=== PATIENT | female | born 1985 | race Caucasian/White ===

== ENCOUNTER 2022-11-07 15:55 | Outpatient (REF) | payer MEDICAID, SELFPAY ==
[2022-11-08 05:08] LABS: HBS Num1 10.06 mIU/mL (0-7.99); HBc Num1 0.32 S/CO (0.00-0.79); HBsAGNum1 0.41 S/CO (0.00-0.99); Hepatitis B Core Antibody Nonreactive (Nonreactive); Hepatitis B Surface Antigen Negative (Negative)
[2022-11-08 13:52] LABS: HBS Num2 9.98 mIU/mL (0-7.99); HBS Num3 10.56 mIU/mL (0-7.99); ~Hepatitis B Surface Antibody GRAYZONE (Nonreactive)
== END 2022-11-07 15:56 | disposition home or self-care (01) ==
LOC: HO.CHCLDS 15:55
PROVIDERS: Visit Provider Family Medicine
DX: Z78.9 Other specified health status (principal)
CPT/HCPCS: 36415; 86704; 86706; 87340

== ENCOUNTER 2023-05-13 15:28 | Outpatient (REF) | payer MEDICAID, SELFPAY ==
[2023-05-13 17:19] LABS: MANUAL DIFF FLAG NO
[2023-05-13 17:41] LABS: Iron 63 mcg/dL (30-160); Percent Iron Saturation 21 % (15-50); Total Iron Binding Capacity 298 mcg/dL (228-428); Unsaturated Iron Binding 235 ug/dL
[2023-05-13 17:43] LABS: Basophils Percent Auto 0.3 % (0-2); Eosinophils Absolute Auto 0.1 X10*3/uL (0.0-0.4); Hematocrit 34.5 % (37.0-47.0); Hemoglobin 11.2 g/dl (12.0-16.0); Imm Gran Abs Auto 0.11 X10*3/uL (0.00-0.03); Lymphocytes Absolute Auto 2.6 X10*3/uL (1.2-4.9); Lymphocytes Percent Auto 24.2 % (20-40); Mean Corpuscular HGB Conc 32.5 g/dl (31.0-35.0); Mean Corpuscular Hemoglobin 28.7 pg (27.0-33.0); Mean Corpuscular Volume 88.5 fL (80.0-98.0); Mean Platelet Volume 10.2 fL (9.4-12.3); Monocytes Absolute Auto 0.5 X10*3/uL (0.1-1.2); Monocytes Percent Auto 4.4 % (2-11); Neutrophils Absolute Auto 7.5 x10*3/uL (2.0-8.3); Neutrophils Percent Auto 69.1 % (45-73); Platelet Count 308 X10*3/uL (160-400); Red Cell Distribution Width 13.2 % (11.0-16.0); White Blood Count 10.9 X10*3/uL (4.8-10.8)
[2023-05-13 17:59] LABS: Ferritin 68 ng/mL (10-122); Vitamin D 25-OH Total 21.1 ng/mL (>30)
[2023-05-14 06:54] LABS: HCG Tumor Marker 7244 mIU/mL
[2023-05-14 11:17] LABS: CT PCR NOT DETECTED (Not Detect.); NG PCR NOT DETECTED (Not Detect.)
== END 2023-05-13 15:29 | disposition home or self-care (01) ==
LOC: HO.CHCLDS 15:28
PROVIDERS: Referring Provider Advanced Practice Midwife; Visit Provider Family Medicine
DX: Z11.3 Encounter for screening for infections with a predominantly sexual mode of transmission (principal); L65.9 Nonscarring hair loss, unspecified
CPT/HCPCS: 0353U; 36415; 82306; 82728; 83540; 84702; 85025

== ENCOUNTER 2023-05-14 15:27 | Outpatient (REF) | payer MEDICAID, SELFPAY ==
[2023-05-15 08:24] LABS: HCG Tumor Marker 10152 mIU/mL
== END 2023-05-14 15:28 | disposition home or self-care (01) ==
LOC: HO.CHCLDS 15:27
PROVIDERS: Visit Provider Advanced Practice Midwife
DX: Z34.91 Encounter for supervision of normal pregnancy, unspecified, first trimester (principal); Z3A.01 Less than 8 weeks gestation of pregnancy
CPT/HCPCS: 36415; 84702

== ENCOUNTER 2023-09-10 11:37 | Outpatient (REF) | payer MEDICAID, SELFPAY ==
[2023-09-11 08:15] LABS: HBS Num1 > 1000.00 mIU/mL (0-7.99); HBc Num1 0.19 S/CO (0.00-0.79); Hepatitis B Core Antibody Nonreactive (Nonreactive); ~Hepatitis B Surface Antibody REACTIVE (Nonreactive)
[2023-09-13 07:24] LABS: TS Negative Control Passed; TS Panel A 0; TS Panel B 0; TS Positive Control Passed; TSpotTB Negative (Negative)
== END 2023-09-10 11:38 | disposition home or self-care (01) ==
LOC: HO.CHCLDS 11:37
PROVIDERS: Visit Provider Family Medicine
DX: Z00.00 Encounter for general adult medical examination without abnormal findings (principal); Z11.59 Encounter for screening for other viral diseases; Z11.1 Encounter for screening for respiratory tuberculosis
CPT/HCPCS: 36415; 86481; 86704; 86706

== ENCOUNTER 2024-04-15 13:39 | Outpatient (REF) | payer MEDICAID, SELFPAY ==
--- OUTSIDE RECORDS SUMMARY | 2024-04-15 13:41 | XMS_ITS | Continuity of Care Document ---
Author Organization [facility] Address [address] [place] [address]- Support Name Relationship Address Phone CHERY OSMAN mother Unknown Unavailable DAWSON, SANTIAGO Personal Relationship Unknown Unav ailable FINNEY, JOSE Other Unknown Unavailable RODRIGO, IRIS Personal Relationship Unknown Unavai lable DAWSON, SANTIAGO Personal Relationship Unknown Unav ailable DAWSON, SANTIAGO Personal Relationship Unknown Unav ailable PT STATES NO ONE, NO ONE Other Unknown Yvonne vailable NIKOLAI, LEO child Unknown Unavailabl e RODRIGO, IRIS Personal Relationship Unknown Unavai lable NIKOLAI, CYNDI Other Unknown Unavailable NIKOLAI, ANGELO child Unknown Unavailabl e RODRIGO, IRIS Personal Relationship Unknown Unavai lable [place] [facility] [place]): [place] - 03/24/[address] [address] Attending Physician: Komal Real Admitting Physician: [id number] Referring Physician: Admtr, [id number] Encounter Type: Triage Allergies, Adverse Reactions, Alerts No Known Allergies Immunizations Given and Recorded Vaccine Date Status Refusal Reason tetanus/diphtheria/pertussis, acel(Tdap) 11/19/23 Given tetanus/diphtheria/pertussis, acel(Tdap) 05/12/20 Given tetanus/diphtheria/pertussis, acel(Tdap) 02/02/10 Given influenza virus vaccine, inactivated 01/21/23 Sonny rded influenza virus vaccine, inactivated 02/02/10 Give n [id number] 12y+ bivalent booster vax 12/20/22 Recorded SARS-CoV-2 (COVID-19) mRNA BNT-162b2 vac 01/19/21 Recorded SARS-CoV-2 (COVID-19) mRNA BNT-162b2 vac 12/29/20 Recorded Human Papillomavirus Vaccine 08/24/08 Given Human Papillomavirus Vaccine 1 06/21/08 Given hepatitis B adult vaccine 2 12/05/98 Given hepatitis B adult vaccine 3 01/06/96 Given hepatitis B adult vaccine 4 12/06/95 Given Measles/Mumps/Rubella Virus Vaccine 5 01/27/90 Giv en Measles/Mumps/Rubella Virus Vaccine 6 07/01/89 Giv en Measles/Mumps/Rubella Virus Vaccine 7 11/26/88 Giv en 1Admin Note: 2nd gardasil ordered to be scheduled by 2Anuvia Note: chart 3Admin Note: chart 4Admin Note: chart 5Admin Note: chart 6Admin Note: chart 7Admin Note: chart Problem List Condition Confirmation Course Effective Dates Status Health St atus Informant Asthma Confirmed Active BMI 36.0-36.9,adult Confirmed Active Mood disorder of depressed type Confirmed Active Gestational diabetes Confirmed Active History of gestational hypertension Confirmed Active LGSIL on Pap smear of cervix Confirmed Active Migraine Confirmed Active AMA (advanced maternal age) multigravida 35+ Confirmed Active Severe obesity Confirmed Active UTI in Confirmed Active Social History Social History Type Response Smoking Status Never (less than 100 in lifetime) entered on: 12/15/19 Sex Sex Representation Female (finding) Patient Care team information Care Team Related Persons Name: LEO MENCHACA Name: ANGELO MENCHACA Name: CYNDI MENCHACA Name: CHERY OSMAN Name: JOSE FINNEY Insurance Providers Guarantor name: FCAUNDO ROSADOA Health Plan Information #: 1 [facility] Member Number: NA Policy Number: NA Group Number: [id number]
[2024-04-15 14:26] LABS: MANUAL DIFF FLAG NO
[2024-04-15 14:39] LABS: Basophils Absolute Auto 0.1 X10*3/uL (0.0-0.2); Basophils Percent Auto 0.6 % (0-2); Eosinophils Absolute Auto 0.5 X10*3/uL (0.0-0.4); Eosinophils Percent Auto 4.6 % (0-4); Hematocrit 34.3 % (37.0-47.0); Hemoglobin 10.7 g/dl (12.0-16.0); Imm Gran Abs Auto 0.07 X10*3/uL (0.00-0.03); Imm Gran Pct Auto 0.7 % (0.0-0.4); Lymphocytes Absolute Auto 2.5 X10*3/uL (1.2-4.9); Lymphocytes Percent Auto 23.4 % (20-40); Mean Corpuscular HGB Conc 31.2 g/dl (31.0-35.0); Mean Corpuscular Volume 80.1 fL (80.0-98.0); Mean Platelet Volume 9.9 fL (9.4-12.3); Monocytes Absolute Auto 0.3 X10*3/uL (0.1-1.2); Monocytes Percent Auto 3.2 % (2-11); Neutrophils Absolute Auto 7.1 x10*3/uL (2.0-8.3); Neutrophils Percent Auto 67.5 % (45-73); Platelet Count 386 X10*3/uL (160-400); Red Blood Count 4.28 X10*6/uL (4.20-5.50); Red Cell Distribution Width 14.1 % (11.0-16.0); White Blood Count 10.5 X10*3/uL (4.8-10.8)
[2024-04-15 14:46] LABS: Estimated Average Glucose 123 mg/dL; Hemoglobin A1C 111.2586 umol/L; Hemoglobin A1c % 5.9 % (<6.0); Total Hemoglobin (HGBA1C) 2735.9017 umol/L
[2024-04-15 15:10] LABS: Valproate < 12.5 mcg/mL (50.0-100.0)
[2024-04-15 15:14] LABS: Erythrocyte Sedimentation Rate 37 MM/HR (0-20)
[2024-04-15 15:16] LABS: Rheumatoid Factor < 13.0 IU/mL (<15.0)
[2024-04-15 15:21] LABS: Albumin Level 4.1 g/dL (3.5-5.0); Anion Gap 13 (12-20); Aspartate Amino Transferase 27 U/L (5-31); Bilirubin Total 0.3 mg/dL (0.0-1.0); Blood Urea Nitrogen 9 mg/dL (9-16); C Reactive Protein 1.69 mg/dL (< or = 0.50); Calcium 9.3 mg/dL (8.4-10.2); Carbon Dioxide 24 mmol/L (22-29); Chloride 104 mmol/L (96-108); Cholesterol 123 mg/dL (<200); Estimated Glomerular Filt Rate > 60; Glucose Random 132 mg/dL (60-115); HDL Cholesterol 35 mg/dL (>40); LDL Cholesterol Calculated 68 mg/dL (<100); Sodium 137 mmol/L (135-145); Total Protein 7.4 g/dL (6.5-8.0); Triglycerides 102 mg/dL (<150)
[2024-04-15 15:35] LABS: Alanine Aminotransferase 22 U/L (0-31); Alkaline Phosphatase 73 U/L (39-117)
[2024-04-16 18:09] LABS: Lyme Abs Screen <0.90 index
[2024-04-19 14:43] LABS: Anti Nuclear Antibody Screen NEGATIVE (NEGATIVE)
[2024-04-20 15:12] LABS: Cyclic Citrullinated Peptide <16 UNITS
== END 2024-04-15 13:40 | disposition home or self-care (01) ==
LOC: HO.CHCLDS 13:39
PROVIDERS: Visit Provider Family Medicine
DX: R10.2 Pelvic and perineal pain (principal); G89.29 Other chronic pain; M25.50 Pain in unspecified joint; F39 Unspecified mood [affective] disorder; I10 Essential (primary) hypertension
CPT/HCPCS: 36415; 80053; 80061; 80164; 83036; 85025; 85652; 86038; 86140; 86200; 86431; 86617; 86618

== ENCOUNTER 2024-07-30 11:30 | Outpatient (REF) | payer MEDICAID, SELFPAY ==
--- OUTSIDE RECORDS SUMMARY | 2024-07-30 13:29 | XMS_ITS | Encounter Summary ---
Author Organization [employer] Address [address] [place] [address] Care Team Providers Care Production Editor Name Role Phone Soledad Ocasio MD Primary Care Provider [phone] Nicole Ramsey PharmD Unavailable [phone] Encounter Details Date Type Department Care Team (Latest Contact Info) Description 07/29/2024 Travel Social History Tobacco Use Types Packs/Day Years Used Date Smoking Tobacco: Never Smokeless Tobacco: Never Alcohol Answer Date Recorded How often do you have a drink containing alcohol ? 1 06/17/2024 How many drinks containing a lcohol do you have on a typical day when you are drinking? 0 06/17/2024 How often do you have six or more drinks on one occasion? 0 06/17/2024 Depression Answer Date Recorded Patient Health Questionnaire-9 Score 0 06/17/2024 Patient Health Questionnaire-9 Score 0 06/17/2024 Last PHQ-9: Questionnaire Data Not on file 0 06/17/2024 Housing Stability Answer Date Recorded What is your housing situation today? I have linette ramsey 04/23/[address] you li ve. Do you have problems with any of the following? None of the above 04/23/2024 Food Insecurity Answer Date Recorded Within the past 12 months, y ou worried that your food would run out before you got money to buy more: Never True 04/23/2024 Within the past 12 months,th e food you bought just didn't last and you didn't have enough money to get more: Never True Transportation Answer Date Recorded In the past 12 months, has l ack of transportation kept you from medical appts, meetings, work or from getting things needed for daily living? No 02/10/2023 Utilities Answer Date Recorded In the past 12 months, has t he electric, gas, oil or water company threatened to shut off services in your home? No 06/17/2024 Depression Answer Date Recorded Patient Health Questionnaire-2 Score 0 06/17/2024 Internet Access Answer Date Recorded Internet Access Q1 Yes 06/17/2024 Internet Access Q2 Not on file 06/17/2024 Comments Unknown Sex and Gender Information Value Date Recorded Sex Assigned at Female 02/25/2022 10:24 AM EDT Legal Sex Female 10:24 AM EDT Gender Identity Female 02/25/2022 10:24 AM EDT Sexual Orientation Straight 02/25/2022 10 :24 AM EDT documented as of this encounter Plan of Treatment Upcoming Encounters Date Type Department Care Team (Late st Contact Info) Description 08/04/2024 10:30 AM EDT Medication Management [facility] MED & PEDS [address] [place] [address] Nicole Ramsey PharmD [address] [place] [address] documented as of this encounter Visit Diagnoses Not on filedocumented in this encounter Additional Health Concerns Assessment Noted Time PHQ-9 Depression Total Score: 0 06/17/19 25 1:39 PM EST documented as of this encounter Care Teams Production Editor Relationship Specialty Start Date End Date Soledad Ocasio MD [address] [place] [address] PCP - General Family Medicine 08/07/22 Nicole Ramsey, JustinaD [address] [place] [address] Pharmacist Internal Medicine 07/07/24 Chapis Bonner First D[employer] 07/23/23 documented as of this encounter
--- OUTSIDE RECORDS SUMMARY | 2024-07-30 13:29 | XMS_ITS | Encounter Summary ---
Author Organization [employer] Address [address] [place] [address] Care Team Providers Care Disease Intervention Specialist Name Role Phone Soledad Ocasio MD Primary Care Provider [phone] Nicole Ramsey PharmD Unavailable [phone] Encounter Details Date Type Department Care Team (Latest Contact Info) Description 07/28/2024 Travel Social History Tobacco Use Types Packs/Day [...] Description 08/04/2024 10:30 AM EDT Medication Management [facility] MED & PEDS [address] [place] [address] Nicole Ramsey PharmD [address] [place] [address] documented as of this encounter Visit Diagnoses Not on filedocumented in this encounter Additional Health Concerns Assessment Noted Time PHQ-9 Depression Total Score: 0 06/17/19 25 1:39 PM EST documented as of this encounter Care Teams Disease Intervention Specialist Relationship Specialty Start Date End Date Soledad Ocasio MD [address] [place] [address] PCP - General Family Medicine 08/07/22 Nicole Ramsey, JustinaD [address] [place] [address] Pharmacist Internal Medicine 07/07/24 Chapis Bonner [employer] Media Program Director 07/23/23 documented as of this encounter
--- OUTSIDE RECORDS SUMMARY | 2024-07-30 13:29 | XMS_ITS | Encounter Summary ---
Author Organization [employer] [facility] Address [address] [facility] 7 [place] [address] Care Team Providers Care Epic Willow Specialist Name Role Phone Soledad Ocasio MD Primary Care Provider [phone] Nicole Ramsey PharmD Unavailable [phone] Encounter Details Date Type Department Care Team (Late st Contact Info) Description 04/11/2022 Orders Only [facility] MED & PEDS [address] [place] [address] Katie Aguilar LPN Social History Tobacco Use Types Packs/Day Years Used Date Smoking Tobacco: Never Assessed Comments Unknown Sex and Gender Information Value [...] Description 08/04/2024 10:30 AM EDT Medication Management [facility]ED[facility] [address] [place] [address] Nicole Ramsey, PharmD [address] [place] [address] documented as of this encounter Visit Diagnoses Not on filedocumented in this encounter Care Teams Epic Willow Specialist Relationship Specialty Start Date End Date Soledad Ocasio MD [address] [place] [address] PCP - General Family Medicine 08/07/22 Nicole Ramsey, PharmD [address] [place] [address] Pharmacist Internal Medicine 07/07/24 Chapis Bonner Egg Candler 07/23/23 documented as of this encounter
--- OUTSIDE RECORDS SUMMARY | 2024-07-30 13:29 | XMS_ITS | Encounter Summary ---
Author Organization [employer] Address [address] [place] [address] Care Team Providers Care Hog Scalder Name Role Phone Soledad Ocasio MD Primary Care Provider [phone] Nicole Ramsey PharmD Unavailable [phone] Encounter Details Date Type Department Care Team ([facility] st Contact Info) Description 09/15/2023 Telephone [facility] MED & PEDS [address] [place], [place] [phone] Soledad Ocasio MD [address] [place], [place] [phone] Social History Tobacco Use Types Packs/Day Years Used Date Smoking Tobacco: Never Smokeless Tobacco: Never Depression Answer Date Recorded Patient Health Questionnaire-9 Score 17 09/02/2022 Housing Stability Answer Date Recorded What is your housing situation today? I have housing today, but I am worried about losing housing in the future 06/26/[address] you li ve. Do you have problems with any of the following? None of the above 06/26/2023 Food Insecurity Answer Date Recorded Within the past 12 months, y ou worried that your food would run out before you got money to buy more: Sometimes True 2023 Within the past 12 months,th e food you bought just didn't last and you didn't have enough money to get more: Sometimes True 06/26/2023 Transportation Answer Date Recorded In the past 12 months, has l ack of transportation kept you from medical appts, meetings, work or from getting things needed for daily living? No 02/10/2023 Utilities Answer Date Recorded In the past 12 months, has t he electric, gas, oil or water company threatened to shut off services in your home? Yes 06/26/2023 Depression Answer Date Recorded Patient Health Questionnaire-2 Score 3 09/02/2022 Comments Yes Sex and Gender Information Value Date Recorded Sex Assigned at Female 02/25/2022 10:24 AM EDT Legal Sex Female 10:24 AM EDT Gender Identity Female 02/25/2022 10:24 AM EDT Sexual Orientation Straight 02/25/2022 10 :24 AM EDT documented as of this encounter Miscellaneous Notes * Telephone Encounter - Wing Ryan RN - 09/15/2023 4:02 PM EDT Tc to pt who stated [facility] is telling her to get Hep B titers. However, pt already had Hep B titers done on 09/09 which showed she was immune to Hep B. Pt brought these results to [facility] but they still insisted on pt getting Hep B titers. Provided pt with our office number for [facility] to call us. Pt verbalized understanding and agreement with plan. * Telephone Encounter - Ruth Smith - 09/15/2023 2:40 PM EDT Tc from pt requesting a call back to discuss immunizations. documented in this encounter Plan of Treatment Upcoming Encounters Date Type Department Care Team (Late st Contact Info) Description 08/04/2024 10:30 AM EDT Medication Management [facility] MED & PEDS [address] [place] [address] Nicole Ramsey PharmD [address] [place] [address] documented as of this encounter Visit Diagnoses Not on filedocumented in this encounter Additional Health Concerns Assessment Noted Time PHQ-9 Depression Total Score: 17 023 11:47 AM EDT documented as of this encounter Care Teams Hog Scalder Relationship Specialty Start Date End Date Soledad Ocasio MD [address] [place] [address] PCP - General Family Medicine 08/07/22 Nicole Ramsey PharmD [address] [place] [address] Pharmacist Internal Medicine 07/07/24 Chapis Bonner Director Service 07/23/23 documented as of this encounter
--- OUTSIDE RECORDS SUMMARY | 2024-07-30 13:29 | XMS_ITS | Encounter Summary ---
Author Organization [employer] [facility] Address [address] [facility] 7 [place] [address] Care Team Providers Care Dryerman/Woman Name Role Phone Soledad Ocasio MD Primary Care Provider [phone] Nicole Ramsey PharmD Unavailable [phone] Encounter Details Date Type Department Care Team (Late Contact Info) Description 05/26/2022 Orders Only [facility] [address] [place] [address] Billy Muñiz MD [address] [place], [place] [phone] Major depressive disorder, remission status unspecified, unspecified whether recurrent (Primary Dx) Social History Tobacco Use Types Packs/Day Years [...] Encounters Date Type Department Care Team (Late Contact Info) Description 08/04/2024 10:30 AM EDT Medication Management [facility] [address] [place], [place] [phone] Nicole Ramsey, PharmD [address] [place] [address] documented as of this encounter Visit Diagnoses Diagnosis Major depressive disorder, remission status unspecified, unspecified whether recurrent- Primary documented in this encounter Care Teams Dryerman/Woman Relationship Specialty Start Date End Date Soledad Ocasio MD [address] [place] [address] PCP - General Family Medicine 08/07/22 Nicole Ramsey PharmD [address] [place] [address] Pharmacist Internal Medicine 07/07/24 Chapis Bonner Newsstand Vendor 07/23/23 documented as of this encounter
--- OUTSIDE RECORDS SUMMARY | 2024-07-30 13:29 | XMS_ITS | Encounter Summary ---
Author Organization [employer] Address [address] 7[address] [place] [address] Care Team Providers Care State Highway Police Officer Name Role Phone Soledad Ocasio MD Primary Care Provider [phone] Nicole Ramsey PharmD Unavailable [phone] Encounter Details Date Type Department Care Team (Late st Contact Info) Description 07/07/2024 Orders Only [facility] MEDICINE [address] [place], [place] [phone] Sona Mccarthy MD [address] [place], [place] [phone] Social History Tobacco Use Types Packs/Day Years [...] Description 08/04/2024 10:30 AM EDT Medication Management [facility] MED & PEDS [address] [place] [address] Nicole Ramsey PharmD [address] [place] [address] documented as of this encounter Visit Diagnoses Not on filedocumented in this encounter Additional Health Concerns Assessment Noted Time PHQ-9 Depression Total Score: 0 06/17/19 25 1:39 PM EST documented as of this encounter Care Teams State Highway Police Officer Relationship Specialty Start Date End Date Soledad Ocasio MD [address] [place] [address] PCP - General Family Medicine 08/07/22 Nicole Ramsey PharmD [address] [place] [address] Pharmacist Internal Medicine 07/07/24 Chapis Bonner Biophysics Professor 07/23/23 documented as of this encounter
--- OUTSIDE RECORDS SUMMARY | 2024-07-30 13:29 | XMS_ITS | Clinical Summary ---
Author Organization [facility] Address [address] [place] [address] Care Team Providers Care Hat Lining Paster Name Role Phone Barbara Cabrera MD Primary Care Provider [phone] Social History Tobacco Use Types Packs/Day Years Used Date Smoking Tobacco: Never Assessed Comments Unknown Sex and Gender Information Value Date Recorded Sex Assigned at Not on file Legal Sex Female 2:35 PM EST Gender Identity Not on file Sexual Orientation Not on file Plan of Treatment Health Maintenance Due Date Last Done Comments DTaP,Tdap,and Td Vaccines (1 - Tdap) 07/02/2006 Hepatitis B Vaccines (1 of 3 - 19+ 3-dose series) 07/02/2006 Cervical Cancer Screening: P ap Smear 07/02/2008 Depression Screening 03/27/2022 HIV Screening 03/27/2022 Hepatitis C Screening 03/27/2022 Social Influencers of Health Screening 03/27/2022 COVID-19 Vaccine ( - 2023-2 5 season) 2023 Influenza Vaccine (Season Ended) 2024 HIB Vaccines Aged Out No longer eligi ble based on patient's age to complete this topic HPV Vaccines Aged Out No longer eligi ble based on patient's age to complete this topic Hepatitis A Vaccines Aged Out No long er eligible based on patient's age to complete this topic IPV Vaccines Aged Out No longer eligi ble based on patient's age to complete this topic MMR Vaccines Aged Out No longer eligi ble based on patient's age to complete this topic Meningococcal ACWY Vaccine Aged Out N o longer eligible based on patient's age to complete this topic Meningococcal B Vacine Aged Out No lo nger eligible based on patient's age to complete this topic Pneumococcal Vaccine: Pediat rics (0 to 5 Years) and At-Risk Patients (6 to 64 Years) Aged Out No longer eligible b ased on patient's age to complete this topic RSV Immunization Patients Un anshul 20 months Aged Out No longer eligible b ased on patient's age to complete this topic Varicella Vaccines Aged Out No longer eligible based on patient's age to complete this topic Care Teams Hat Lining Paster Relationship Specialty Start Date End Date Barbara Cabrera MD [address] [place] [address] PCP - General Internal Medicine 02/08/19
--- OUTSIDE RECORDS SUMMARY | 2024-07-30 13:29 | XMS_ITS | Encounter Summary ---
Author Organization [employer] Address [address] 7[address] [place] [address] Care Team Providers Care Room Service Attendant Name Role Phone Soledad Ocasio MD Primary Care Provider [phone] Nicole Ramsey PharmD Unavailable [phone] Reason for Visit * Reason Onset Date Comments Care Management 07/28/2024 [facility] TC #[id number] Encounter Details Date Type Department Care Team ([facility] st Contact Info) Description 07/28/2024 Telephone [facility] MEDICINE [address] [place] [address] Soledad Ocasio MD [address] [place] [address] Care Management ([facility] TC #1-lvm) Social History Tobacco Use Types Packs/Day Years [...] encounter Miscellaneous Notes * Telephone Encounter - Chapis Bonner - 07/28/2024 11:02 AM EDT CM Chapis Bonner RN placed outbound call to patient for follow up call. No answer at this time.LVM introducing herself from [facility] CM Department. Requested call back. CM reinforced direct contact information or CHW for any additional questions or concerns. Education provided on [facility] Ur[facility] located in [facility]. Patient provided with after-hours line for [facility], , which offer night time triage service and option to transfer toon call provider if needed. CM will attempt another follow up call within 1 month. documented in this encounter Plan of Treatment Upcoming Encounters Date Type Department Care Team ([facility] st Contact Info) Description 08/04/2024 10:30 AM EDT Medication Management [facility] MED & PEDS [address] [place] [address] Nicole Ramsey, PharmD [address] [place] [address] documented as of this encounter Visit Diagnoses Not on filedocumented in this encounter Additional Health Concerns Assessment Noted Time PHQ-9 Depression Total Score: 0 06/17/19 25 1:39 PM EST documented as of this encounter Care Teams Room Service Attendant Relationship Specialty Start Date End Date Soledad Ocasio MD [address] [place] [address] PCP - General Family Medicine 08/07/22 Nicole Ramsey, JustinaD [address] [place] [address] Pharmacist Internal Medicine 07/07/24 Chapis Bonner Lead Systems Engineer 07/23/23 documented as of this encounter
--- OUTSIDE RECORDS SUMMARY | 2024-07-30 13:29 | XMS_ITS | Encounter Summary ---
Author Organization [employer] Address [address] [place] [address] Care Team Providers Care Dispensing Optician Apprentice Name Role Phone Soledad Ocasio MD Primary Care Provider [phone] Nicole Ramsey PharmD Unavailable [phone] Reason for Visit * Reason Comments Care Management [facility] follow up call Encounter Details Date Type Department Care Team ([facility] st Contact Info) Description 05/14/2024 Telephone [facility] MEDICINE [address] [place] [address] Chapis Bonner Care Management ([facility] follow up call) Social History Tobacco Use Types Packs/Day Years Used Date Smoking Tobacco: Never Smokeless Tobacco: Never Depression Answer Date Recorded Patient Health Questionnaire-9 Score 15 04/30/2024 Patient Health Questionnaire-9 Score 15 04/30/2024 Last PHQ-9: Questionnaire Data Not on file 0 04/30/2024 Housing Stability Answer Date Recorded What is [...] Answer Date Recorded Patient Health Questionnaire-2 Score 4 04/30/2024 Internet Access Answer Date Recorded Internet Access Q1 I am not sure 04/23/2024 Internet Access Q2 Not on file 04/23/2024 Comments Unknown Sex and Gender Information Value [...] Management [facility] MED & PEDS [address] [place] [address] Nicole Ramsey, PharmD [address] [place] [address] documented as of this encounter Visit Diagnoses Not on filedocumented in this encounter Additional Health Concerns Assessment Noted Time PHQ-9 Depression Total Score: 15 025 9:18 AM EST documented as of this encounter Care Teams Dispensing Optician Apprentice Relationship Specialty Start Date End Date Soledad Ocasio MD [address] [place] [address] PCP - General Family Medicine 08/07/22 Nicole Ramsey, JustinaD [address] [place] [address] Pharmacist Internal Medicine 07/07/24 Chapis Bonner Set Off Blocker 07/23/23 documented as of this encounter
--- OUTSIDE RECORDS SUMMARY | 2024-07-30 13:29 | XMS_ITS | Clinical Summary ---
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 Ventolin HFA 108 (90 Base) MCG/ACT inhaler INHALE 2 PUFFS BY MOUTH FOUR TIMES DAILY 023 Active fluticasone (Flonase) 50 MCG/ACT nasal spray SHAKE LIQUID AND USE 1 SPRAY IN EACH NOSTRIL EVERY DAY NEEDED FOR ALLERGIES 023 Active Blood Pressure kitIndications: Elevated blood pressure reading 1 Units in the morning. 1 kit 023 Active famotidine (Pepcid) 20 MG tablet Take 20 mg by mouth. 024 Active butalbital-acet aminophen-caffe ine 50-325-40 MG tabletIndicatio ns:Intractable chronic migraine with aura and without status migrainosus Take 2 tablets by mouth every 8 (eight) hours if needed for headaches. 20 tablet 024 Active Levonorgestrel (Liletta, 52 MG,) 20.1 MCG/DAY intrauterine device by Intrauterine route. Active ferrous gluconate (Fergon) 324 (38 Fe) MG tablet Take 1 tablet (324 mg) by mouth every other day. 90 tablet 1 024 Active losartan (Cozaar) 100 MG tabletIndicatio ns:Hypertension , unspecified type Take 1 tablet (100 mg) by mouth Once per day. 30 tablet 3 024 Active lidocaine (Lidoderm) 5 % patchIndication s:Low back pain at multiple sites Apply 1 patch topically Once per day. Remove & discard patch within 12 hours or as directed by . 30 patch 3 Active methocarbamol (Robaxin) 750 MG tabletIndicatio ns:Low back pain at multiple sites Take 1 tablet (750 mg) by mouth 4 times daily for 10 days. 40 tablet Active chlorthalidone (Hygroton) 25 MG tablet Take 1 tablet (25 mg) by mouth Once per day. 90 tablet 1 Active DULoxetine (Cymbalta) [address] capsuleIndicati ons:Low back pain at multiple sites Take 1 capsule (20 mg) by mouth 2 times daily. Do not crush or chew. 60 capsule 11 025 2025 Active atenolol (Tenormin) 50 MG tabletIndicatio ns:Primary hypertension Take 1 tablet (50 mg) by mouth Once per day. 30 tablet 11 025 2025 Active rizatriptan (Maxalt) 10 MG tabletIndicatio ns:Intractable chronic migraine with aura and without status migrainosus Take 1 tablet (10 mg) by mouth 1 (one) time if needed for migraine. May repeat in 2 hours if unresolved. Do not exceed 30 mg in 24 hours. 9 tablet Active Alcohol Swabs (Alcohol Prep) 70 % pads USE TO CLEAN SKIN BEFORE INJECT INSULIN 4 TIMES A DAY. Active FREESTYLE LITE test strip USE DIRECTED FOUR TIMES DAILY Active B-D UF III MINI PEN NEEDLES 31G X 5 MM misc USE TO INJECT INSULIN 4 TIMES A DAY DIRECTED. Active FreeStyle lancets USE DIRECTED FOUR TIMES DAILY Active amLODIPine (Norvasc) 10 MG tabletIndicatio ns:Primary hypertension Take 1 tablet (10 mg) by mouth Once per day. 90 tablet 3 Active Tirzepatide-Awais ght Management (Zepbound) 5 MG/0.5ML solution Inject 5 mg under the skin 1 (one) time per week. 2 mL 3 Active traZODone (Desyrel) 150 MG tabletIndicatio ns:Depression with anxiety Take 1 tablet (150 mg) by mouth if needed at bedtime for sleep. 30 tablet 025 2024 Active divalproex (Depakote) 500 MG EC tabletIndicatio ns:Mood disorder (CMS/HCC) Take 1 tablet (500 mg) by mouth 2 times daily. Do not crush, chew, or split. 60 tablet 1 025 2024 Active ARIPiprazole (Abilify) 10 MG tabletIndicatio ns:Mood disorder (CMS/HCC) Take 1.5 tablets (15 mg) by mouth Once per day. 45 tablet 025 2024 Active propranolol LA (Inderal LA) 80 MG 24 hr capsuleIndicati ons:Intractable chronic migraine with aura and without status migrainosus Take 1 capsule (80 mg) by mouth at bedtime. Do not crush, chew, or split. 90 capsule 1 024 2024 Discontinued(A lternate therapy) amLODIPine (Norvasc) 5 MG tabletIndicatio ns:Primary hypertension Take 1 tablet (5 mg) by mouth Once per day. 30 tablet 11 025 2024 Discontinued(R eorder (will not trigger notification to Pharmacy)) traZODone (Desyrel) 100 MG tabletIndicatio ns:Depression with anxiety Take 1 tablet (100 mg) by mouth if needed at bedtime for sleep. 30 tablet 1 025 2024 Discontinued(R eorder (will not trigger notification to Pharmacy)) divalproex (Depakote) 500 MG EC tabletIndicatio ns:Mood disorder (CMS/HCC) Take 1 tablet (500 mg) by mouth 2 times daily. Do not crush, chew, or split. 60 tablet 1 025 2024 Discontinued(R eorder (will not trigger notification to Pharmacy)) Tirzepatide-Awais ght Management (Zepbound) 2.5 MG/0.5ML solution auto-injectorIn dications:Class 3 severe obesity due to excess calories without serious comorbidity with body mass index (BMI) of 40.0 to 44.9 in adult (CMS/HCC) Inject 0.5 mL (2.5 mg) under the skin 1 (one) time per week. 2 mL 1 025 2024 Discontinued(T herapy completed) escitalopram (Lexapro) 10 MG tabletIndicatio ns:Depression with anxiety Take 0.5 tablets (5 mg) by mouth in the morning. 15 tablet 025 2024 Discontinued(I neffective) ARIPiprazole (Abilify) 10 MG tabletIndicatio ns:Mood disorder ([facility]) Take 1 tablet (10 mg) by mouth Once per day. 30 tablet 025 2024 Discontinued(R eorder (will not trigger notification to Pharmacy)) Lantus SoloStar 100 UNIT/ML pen ADMINISTER 28 UNITS UNDER THE SKIN DAILY AT BEDTIME 025 2024 Discontinued(T herapy completed) insulin lispro (HumaLOG) 100 UNIT/ML injection ADMINISTER 8 UNITS UNDER THE SKIN THREE TIMES DAILY BEFORE MEALS 025 2024 Discontinued(T herapy completed) Tirzepatide-Awais ght Management (Zepbound) 5 MG/0.5ML solution Inject 5 mg under the skin 1 (one) time per week. 2 mL 1 025 2024 Discontinued(R eorder (will not trigger notification to Pharmacy)) Active Problems Patient Care Coordination No te Formatting of this note migh t be different from the original. C3/CM Debbie Mauricio RN Problem Noted Date Diagnosed Date Primary hypertension 04/30/2024 Assessment & Plan (04/30/2024 10:32 AM EST): Ordering lab work for further evaluation. DC hydrochlorothiazide and begin chlorthalidone. Follow up in 4 months. Relevant Medications Chlorthalidone (Hygroton) 25 mg tablet Restless leg syndrome 04/30/2024 Assessment & Plan (04/30/2024 10:30 AM EST): Ordering lab work for further evaluation. Polyarthralgia 04/15/2024 Assessment & Plan (04/15/2024 11:03 AM EST): Ordering lab work for further evaluation. Chronic pelvic pain in female 04/15/2024 Assessment & Plan (04/15/2024 11:03 AM EST): Ordering lab work for further evaluation. Physical exam, annual 09/16/2023 Assessment & Plan (09/16/2023 11:55 AM EDT): 38 y.o. 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 Reviewed what testing is required and will f./up with results. AMA (advanced maternal age) multigravida 35+ History of gestational diabetes 09/10/2023 History of gestational hypertension 0 09/10/2023 Medication exposure during first trimester of pr egnancy 09/10/2023 UTI in 09/10/2023 Alopecia 03/05/2023 Assessment & Plan (03/05/2023 4:29 PM EST): Areas of keratinization and thinning, she is very concern, will check labs and schedule apt with [facility] D[facility]. Watery diarrhea 01/28/2023 Assessment & Plan (01/28/2023 4:56 PM EDT): Unknown etiology. Will send testing. Will send symptomatic management. rtc if worsening symptoms, benign abdominal exam. Chronic pain of left knee 11/19/2022 Assessment & Plan (11/19/2022 4:12 PM EDT): Patient with chronic Left knee pain, will refer to orthopedic surgery for further evaluation. Posttraumatic stress disorder 10/28/2022 Assessment & Plan (11/12/2022 3:38 PM EDT): Assessment: Patient with a history of Trauma (exposure to traumatic life threatening event, recurrent involuntary, and intrusive distressing memories, nightmares, flashbacks, avoidance of external reminders that arouse distressing memories, thoughts, or feelings about the traumatic event, persistent negative emotional state, feelings of detachment, irritable behavior, and problems with concentration), ADHD (documented in medical record) depression (depressed mood, isolation) and anxiety (over thinking, worry, and nervousness). Symptoms are in the context of biopsychosocial stressors of chronic pain and lack of coping mechanisms. At this time Qing Ackerman meets criteria for Visit Diagnoses: Problem List Items Addressed This Visit Other Posttraumatic stress disorder Patient ready to address current needs Yes Strengths- Iris is the action stage of change PLAN: 1. Follow up with [facility]: Recommended for follow-up: patient will contact to schedule follow up 2. Patient goal is increase coping mechanisms 3. Behavioral Recommendations a. Deep breathing b. Task prioritizing c. Contacting the accomodation department at the [facility] Assessment & Plan (10/28/2022 1:27 PM EDT): Assessment: Patient with a history of Trauma (exposure to traumatic life threatening event, recurrent involuntary, and intrusive distressing memories, nightmares, flashbacks, avoidance of external reminders that arouse distressing memories, thoughts, or feelings about the traumatic event, persistent negative emotional state, feelings of detachment, irritable behavior, and problems with concentration), ADHD (documented in medical record) depression (depressed mood, isolation) and anxiety (over thinking, worry, and nervousness). (Symptoms are in the context of biopsychosocial stressors of chronic pain and lack of coping mechanisms. Patient will benefit from psychological testing and follow up BE's. At this time Qing Ackerman meets criteria for Visit Diagnoses: Problem List Items Addressed This Visit Other Depression with anxiety Relevant Orders Referral to Behavioral Health Attention deficit hyperactivity disorder (ADHD), combined type PTSD (post-traumatic stress disorder) Patient ready to address current needs Yes Strengths include ready and motivated for treatment. PLAN: 1. Follow up with [facility]: Recommended for follow-up: 10/24/22 2. Patient goal is to engage in follow up BE's to explore coping mechanisms. 3. Behavioral Recommendations a. Explore coping mechanisms b. PTSD psychoeducation Chronic midline low back pain without sciatica 0 10/07/2022 Assessment & Plan (01/28/2023 4:58 PM EDT): Patient continues with symptoms, sp PT and MRI, will send to pain management. Referral placed, MRI sent to scan Assessment & Plan (10/07/2022 4:54 PM EDT): Patient with chronic midline low back pain with no relief s/p physical therapy. Will benefit from further evaluation form an MRI. LGSIL on Pap smear of cervix 09/02/2022 Asthma 09/02/2022 Depression with anxiety 09/02/2022 Assessment & Plan (09/02/2022 11:37 AM EDT): Patient with depression symptoms associated with anxiety. Will refer to Behavioral services for further evaluation. Gestational diabetes 09/02/2022 Class 2 obesity with body ma ss index (BMI) of 36.0 to 36.9 in adult 09/02/2022 Assessment & Plan (04/30/2024 10:33 AM EST): Begin Zepbound and follow up in 4 months. Assessment & Plan (01/28/2023 4:57 PM EDT): Discussed calorie deficit, recommended reduction of 20-30% of maintenance calories; trailer technician referral offered. Recommended to decrease soda and sugary beverage consumption. Recommended at least 20 g per meal of protein to assist with satiety. Recommended at least 150 min/week of moderate intensity exercise. Phentermine/topamax: 37.5/100 mg. Discussed side effects-> tachycardia, HTN, teratogenic, cognitive dysfuction, metabolic acidosis, constipation, dysgeusia. Denies hx of , hyperthyroidism, MAOI use or glaucoma. Denies hx of kidney stones. Cont current regimen -Patient has lost 20 lbs in 3 months. -Will have medication refill. Assessment & Plan (11/19/2022 4:12 PM EDT): Patient with poor response to phentermine and Topamax. Already on max dose. She has contraindications for Wellbutrin. Patient unable to afford GOP 1 agonist. Declined referral to bariatric surgery. Will continue with current medications for next 2 months and follow up in 8 weeks. Assessment & Plan (10/07/2022 4:51 PM EDT): Patient with no weight loss despite implementation of diet modifications. At this point will increase phentermine to 37.5 and Topamax to 100 mg. Assessment & Plan (09/02/2022 11:36 AM EDT): Will send labs to check levels. Attention deficit hyperactiv ity disorder (ADHD), combined type 09/02/2022 Abnormal cervical Papanicolaou smear 05/15/2018 Migraine 05/15/2018 Assessment & Plan (04/15/2024 11:06 AM EST): Prescribing Inderal and Butalbital-Acetaminophen for Sx. Follow up on 04/29/2023 for medications. Assessment & Plan (09/16/2023 11:53 AM EDT): Patient has a hx of migraine headache, reports OB recommended referral to neurology as she is currently and they can't offer medication. Did provide reglan trial. Mild intermittent asthma 05/15/2018 Mood disorder 05/15/2018 Assessment & Plan (04/30/2024 9:46 AM EST): Started to be seen by financial services associate in office, he continues her mood stabilizer & SGA and added trazodone to regimen, next appt in 2 weeks. Followup per psych recs. Future Appointments Date Time Provider Department Center 04/30/2024 10:45 AM Soledad Ocasio MD [facility] 05/13/2024 4:00 PM Osito Guidry [facility] 05/20/2024 9:00 AM Fahad Agrawal MD [facility] Assessment & Plan (04/15/2024 11:07 AM EST): Prescribing Depakote and Abilify for Sx. Will follow up on next visit. Ordering lab work for further evaluation. Resolved Problems Problem Noted Date Diagnosed Date Resolved Date Elevated blood pressure reading 10/07/2022 04/30/2024 Assessment & Plan (10/07/2022 4:52 PM EDT): Patient with frequent elevated blood pressure readings. Will send BP cuff and encourage consistent monitoring at home. Will follow up in 1 month. Encounters * This document contains information received from the source organization and may not represent a complete record from that organization. Date Type Department Care Team Description 07/29/2024 Travel 07/28/2024 Travel 07/28/2024 Telephone [facility] [address] [place] [address] Soledad Ocasio MD Care Management ([facility] TC #1-lvm) 07/13/2024 Telephone [facility] [address] [place] [address] Soledad Ocasio MD Prior Authorization 07/09/2024 Population Health Risk Score [facility] (C[facility]) Department [address] [place] [phone] Provider, Population Health Generic 07/07/2024 Orders Only [facility] [address] [place] [address] Sona Mccarthy MD 07/07/2024 Refill [facility] [address] [place] [address] Nicole Ramsey PharmD History of gestational diabetes (Primary Dx) 07/07/2024 Travel 06/30/2024 Telephone [facility] [address] [place] [address] Soledad Ocasio MD Care Management ([facility] follow up call) 06/30/2024 Refill [facility] [address] [place] [address] Fahad Agrawal MD Class 3 severe obesity due to excess calories without serious comorbidity with body mass index (BMI) of 40.0 to 44.9 in adult ([facility]) 06/30/2024 Travel 06/17/2024 11:15 AM EST Office Visit [facility] [address] [place] [address] Fahad Agrawal MD Primary hypertension (Primary Dx); Moderate asthma without complication, unspecified whether persistent; Intractable chronic migraine with aura and without status migrainosus 06/17/2024 Travel 06/10/2024 Travel 06/09/2024 Travel 06/03/2024 Telephone [facility] [address] [place] [address] Chapis Bonner Care Management ([facility] follow up call) 05/28/2024 Refill [facility] [address] [place] [address] Soledad Ocasio MD Mood disorder (CMS/HCC) 05/20/2024 9:00 AM EST Telemedicine [facility] [address] [place] [address] Fahad Agrawal MD Primary hypertension (Primary Dx); Low back pain at multiple sites 05/20/2024 Travel 05/14/2024 Telephone [facility] [address] [place] [address] Chapis Bonner Care Management ([facility] follow up call) 05/13/2024 Travel 05/11/2024 Travel 05/03/2024 Telephone [facility] [address] [place] [address] Soledad Ocasio MD Order from Last 3 Months Immunizations Name Administration Dates Next Due HPV, Quadrivalent 08/24/2008,06/21/2008 Hep B, adult 06/17/2023, 3,12/20/2022,12/05,01/06/1996,12/06/1995 Influenza injectable quadriv alent preservative free 01/21/2023,02/29/2020,02/05/2017 Influenza, IIV3, injectable 01/21/2023, 4,02/02/2010 MMR 01/27/1990,07/01/1989,11/26/1988 Meningococcal Polysaccharide A,C,Y,W-135 TT Conjugate 09/02/2022 Pfizer Covid-19 Vaccine 12+ Bivalent 12/20/2022, 12/20/2022 Tdap 11/19/2023,05/12/2020,02/02/2010 Family History Medical History Relation Name Comments Lung cancer Maternal Grandmother Breast cancer Other Maternal great aunt Skin cancer Paternal Grandmother Relation Name Status Comments Maternal Grandmother Other Maternal great aunt and mate rnal first cousin once removed Paternal Grandmother Social History Tobacco Use Types Packs/Day Years [...] your housing situation today? I have linette braulio 04/23/[address] you li [...] Orientation Straight 02/25/2022 10 :24 AM EDT Last Filed Vital Signs Vital Sign Reading Time Taken Comments Blood Pressure 146/94 07/07/2024 11:09 AM EDT Pulse 82 07/07/2024 11:09 AM EDT Temperature 37.1 ??C (98.8 ??F) 06/17/2024 11:[address] Respiratory Rate 20 06/17/2024 11:25 AM EST Oxygen Saturation 98% 06/17/2024 11:25 AM EST Inhaled Oxygen Concentration - - Weight 94.6 kg (208 lb 9.6 oz) 06/17/2024 11:25 AM EST Height 148 cm (4' 10.27 ) 06/17/2024 11:25 AM ES T Body Mass Index 43.2 06/17/2024 11:25 AM EST Plan of Treatment Upcoming Encounters Date Type Department Care Team (Late st Contact Info) Description 08/04/2024 10:30 AM EDT Medication Management [facility] [address] [place], [place] [phone] Nicole Ramsey, PharmD [address], [place] [phone] Health Maintenance Due Date Last Done Comments Family Planning (PISQ) 07/02/2002 Pneumococcal Vaccine: Pediatrics (0 to 5 Years) and At-Risk Patients (6 to 49) Years) (1 of 2 - PCV) 07/02/2006 HPV Vaccines (3 - 3-dose series) 12/19/2008 08/24/2008, 06/21/2008 COVID-19 Vaccine ( - season) 2023 12/20/2022, 12/20/2022, 01/19/2021, Additional history exists Influenza Vaccine (#1) 2023 , 01/21/2023, 02/29/2020, Additional history exists Diabetes: Hemoglobin A1C 04/15/2025 04/15/2024 Alcohol/Substance Use Screening 06/17/2025 06/17/2024 Depression Screening 06/17/2025 06/17/2024, 06/17/19 SDOH Screening 06/17/2025 06/17/2024 Tobacco Screening 07/28/2025 07/28/2024 Cervical Cancer Screening 07/15/2026 HPV/Cotest 07/15/2026 07/16/2023, 0506/2022, 09/18/2017 Pap Smear 07/15/2026 07/16/2023, 09/17/2022 Lipid Panel 04/15/2029 04/15/2024 DTaP/Tdap/Td Vaccines (4 - Td or Tdap) 11/18/2033 11/19/2023, 05/12/2020, 02/02/2010 Zoster Vaccines (1 of 2) 07/02/2037 RSV Patients and Patients Aged 60 years or older (1 - 1-dose 75+ series) 07/02/2062 HIV Screening Completed 09/02/2022 Hepatitis C Screening Completed 09/02/2022 Meningococcal Vaccine Aged Out 09/02/2022 No parrish dannie eligible based on patient's age to complete this topic Hepatitis B Vaccines Completed 06/17/2023, 01/21/2023, 12/20/2022, Additional history exists HIB Vaccines Aged Out No longer eligi ble based on patient's age to complete this topic Hepatitis A Vaccines Aged Out No long er eligible based on patient's age to complete this topic IPV Vaccines Aged Out No longer eligi ble based on patient's age to complete this topic RSV under 20 months Aged Out No longe r eligible based on patient's age to complete this topic Rotavirus Vaccines Aged Out No longer eligible based on patient's age to complete this topic Procedures Procedure Name Priority Date/Time Associated Diagnosis Comments HEMOGLOBIN A1C Routine 04/15/2024 1:41 PM EST Mood disorder (CMS/HCC) LIPID PANEL, STANDARD Routine 04/15/2024 1:41 PM EST Hypertension, unspecified type HM PAP/HPV Routine 07/16/2023 12:00 AM EDT HEPATITIS C AB W/REFL TO HCV RNA, QN, PCR Routine 09/02/2022 11:51 AM EDT Periodic health assessment, general screening, adult HIV 1/2 ANTIGEN/ANTIBODY, FOURTH GENERATION W/RFL Routine 09/02/2022 11:51 AM EDT Periodic health assessment, general screening, adult from Last 3 Months or Most Recently Relevant to Health Maintenance Results * Hemoglobin A1c (04/15/2024 1:41 PM EST) Hemoglobin A1c 5.9 <6.0 % [facility] Comment:Hemoglobin A1C Refer ence Range Adults: 4.8 - 6.0 % Non diabetic: < 6.0 % Goal: < 7.0 %Additional Action Suggested: > 8.0 %Note: Hemoglobin A1c results are invalid for patients with abnormal amounts of HbF. Blood transfusions may impact the HbA1c concentration in the patient sample. Estimated Average Glucose 123 mg/dL [facility] Comment:eAG = Estimated ave rage glucose which is %A1C expressed asaverage glucose, using the formula of the Y2R-ItumxaeOfjcdka Glucose study (ADAG), Diabetes Care, Vol.31,#8,2007 Blood Venous blood specimen / Unknown 04/15/2024 1:41 PM EST 04/15/2024 2:22 PM EST us Soledad Ocasio MD LAB BLOOD ORDERABLES Final Re sult [facility] [address] [place] [phone] * (ABNORMAL) Lipid Panel, Standard (04/15/2024 1:41 PM EST) Triglycerides 102 <150 mg/dL [facility] Comment:Desirable Triglyceri de: less than 150 mg/dLBorderline High Triglyceride 150-199 mg/dLHigh Triglyceride: 200-499 mg/dLVery High Triglyceride: greater than or equal to 5OO mg/dL Cholesterol 123 <200 mg/dL [facility] Comment:Desirable Cholestero l: less than 200 mg/dLBorderline High Cholesterol: 200-239 mg/dLHigh Cholesterol: greater than 239 mg/dL LDL Cholesterol Calculated 68 <100 mg/dL [facility] Comment:Desirable LDL: less than 100 mg/dLNear Optimal/Above Optimal LDL: 110- 129 mg/dLBorderline High LDL: 130-159 mg/dLHigh LDL: 160-189 mg/dLVery High LDL: greater than or equal to 190 mg/dL HDL Cholesterol 35(L) >40 mg/dL [facility] Comment:Desirable HDL: great er than 40 mg/dL Note: This HDL assay may give artificially low results in patients with liver disease. Blood Venous blood specimen / Unknown 04/15/2024 1:41 PM EST 04/15/2024 2:22 PM EST Result [facility] Soledad Ocasio MD LAB BLOOD ORDERABLES Final Re sult Performing Organization Address [facility] Co de Phone Number [facility] [address] [place] [phone] * HM PAP/HPV (07/16/2023 12:00 AM EDT) Pap Smear 1. NILM 1. NILM [facility] HPV Not Detected Undetected, Indeterminat e, Quantitative , Not Detected [facility] Result [facility] Ramona Barajas MD HEALTH MAINTENANCE Edited Result - Final Performing Organization Address [facility] de Phone Number [facility] [address] [place] [phone] * Hepatitis C Antibody with Reflex to HCV, RNA, Quantitative, Real-Time PCR (09/02/2022 11:51 AM EDT) Hepatitis C Antibody NON-REACT JACKIE NON-REACT JACKIE [employer] [place] [employer] Index 0.09 <1.00 [employer] [facility] Comment: HCV antibody was non-reactive. There is no laboratory evidence of HCV infection. In most cases, no further action is required. However, if recent HCV exposure is suspected, a test for HCV RNA (test code 16558) is suggested. For additional information please refer to http://education.Curious.com.Company Data Trees/faq/HQN12s3 (This link is being provided for informational/ educational purposes only.) Blood Venous blood specimen / Unknown 09/02/2022 11:51 AM EDT 09/02/2022 11:52 AM EDT Result [facility] Soledad Ocasio MD LAB BLOOD ORDERABLES Final Re sult Performing Organization Address [facility]/ZIP Co de Phone Number [facility] [address], [place] [address] [employer] [place] [facility] [address] [place] [address] * HIV-1/2 Antigen and Antibodies, Fourth Generation, with Reflexes (09/02/2022 11:51 AM EDT) HIV Antigen/Antibody, 4th Generation NON-REAC TIVE NON-REAC TIVE [employer] [place] [employer] [facility] Comment: HIV-1 antigen and HIV-1/HIV-2 antibodies were not detected. There is no laboratory evidence of HIV infection. PLEASE NOTE: This information has been disclosed to you from records whose confidentiality may be protected by state law. ??If your state requires such protection, then the state law prohibits you from making any further disclosure of the information without the specific written consent of the person to whom it pertains, or as otherwise permitted by law. A general authorization for the release of medical or other information is NOT sufficient for this purpose. ?? For additional information please refer to http://education.iTOK/faq/CKN398 (This link is being provided for informational/ educational purposes only.) The performance of this assay has not been clinically validated in patients less than 2 years old. Blood Venous blood specimen / Unknown 09/02/2022 11:51 AM EDT 09/02/2022 11:52 AM EDT Soledad Ocasio MD LAB BLOOD ORDERABLES Final Re sult Performing Organization Address City/[facility]/ZIP Co de Phone Number [facility] [address], [place] [address] [employer] [place] [employer] [address] [place] [address] from Last 3 Months or Most Recently Relevant to Health Maintenance Insurance [place] [address] C3 Care Teams Electric Distribution Engineer Relationship Specialty Start Date End Date Soledad Ocasio MD [address] [place] [address] PCP - General Family Medicine 08/07/22 Nicole Ramsey PharmD [address] [place] [address] Pharmacist Internal Medicine 07/07/24 Chapis Bonner Certified Personal Finance Counselor 07/23/23
--- OUTSIDE RECORDS SUMMARY | 2024-07-30 13:29 | XMS_ITS | Encounter Summary ---
Author Organization [employer] Address [address] [place] [address] Care Team Providers Care Cornice Upholsterer Name Role Phone Soledad Ocasio MD Primary Care Provider Nicole Ramsey PharmD Unavailable [phone] Encounter Details Date Type Department Care Team (Late st Contact Info) Description 11/08/2022 Orders Only [facility] MED & PEDS [address] [place], [place] [phone] Gissel Holt MD [address] [place], [place] [phone] Social History Tobacco Use Types Packs/Day Years Used Date Smoking Tobacco: Never Smokeless Tobacco: Never Depression Answer Date Recorded Patient Health Questionnaire-9 Score 17 09/02/2022 Depression Answer Date Recorded Patient Health Questionnaire-2 Score 3 09/02/2022 Comments No Sex and Gender Information Value Date Recorded Sex Assigned at Female 02/25/2022 10:24 AM EDT Legal Sex Female 10:24 AM EDT Gender Identity Female 02/25/2022 10:24 AM EDT Sexual Orientation Straight 02/25/2022 10 :24 AM EDT COVID-19 Exposure Response Date Recorded In the last 10 days, have yo u been in contact with someone who was confirmed or suspected to have Coronavirus/COVID-19? No / Unsure 11/06/2022 8:32 AM EDT documented as of this encounter Plan of Treatment Upcoming Encounters Date Type Department Care Team (Late st Contact Info) Description 08/04/2024 10:30 AM EDT Medication Management [facility] MED & PEDS [address] [place], [place] [phone] Nicole Ramsey, PharmD [address] [place] [address] documented as of this encounter Visit Diagnoses Not on filedocumented in this encounter Additional Health Concerns Assessment Noted Time PHQ-9 Depression Total Score: 17 023 11:47 AM EDT documented as of this encounter Care Teams Cornice Upholsterer Relationship Specialty Start Date End Date Soledad Ocasio MD [address] [place] [address] PCP - General Family Medicine 08/07/22 Nicole Rmasey PharmD [address] [place] [address] Pharmacist Internal Medicine 07/07/24 Chapis Bonner Director Cloud Transformation 07/23/23 documented as of this encounter
--- OUTSIDE RECORDS SUMMARY | 2024-07-30 13:29 | XMS_ITS | Encounter Summary ---
Author Organization [facility] Address [address] 7[address] [place] [address] Care Team Providers Care Assembler Steam And Gas Turbine Name Role Phone Soledad Ocasio MD Primary Care Provider [phone] Nicole Ramsey PharmD Unavailable [phone] Reason for Visit * Reason Onset Date Comments Nurse Triage 04/13/2024 Encounter Details Date Type Department Care Team ([facility] st Contact Info) Description 04/13/2024 Telephone [facility] MED & PEDS [address] [place], [place] [phone] Soledad Ocasio MD [address] [place] [address] Nurse Triage Social History Tobacco Use Types Packs/Day Years [...] t he electric, gas, oil or water [id number] threatened to shut off services in your home? Yes 06/26/2023 Depression Answer Date Recorded Patient Health Questionnaire-2 Score 6 04/15/2024 Comments Unknown Sex and Gender Information Value Date Recorded Sex Assigned at Female 02/25/2022 10:24 AM EDT Legal Sex Female 10:24 AM EDT Gender Identity Female 02/25/2022 10:24 AM EDT Sexual Orientation Straight 02/25/2022 10 :24 AM EDT documented as of this encounter Miscellaneous Notes * Telephone Encounter - Pilar Guevara LPN - 04/13/2024 2:02 PM EST Triage call returned to patient who is very upset, crying. Patient is having ongoing back pain thatradiates into both legs is unable to control pain [facility]. Patient frustrated as she kept being told symptoms were related to and that it would resolve. Patient reports pain with numbness in legs has pain that shoots into alternating legs. Patient overwhelmed with 3mo that reports is colicky and that she is getting Zero sleep. Patient reports previously treated thru [facility] and was told to follow with PCP for concerns. depression discussed and patient denies concerns but endor ses she is overwhelmed. Denies SI/HI when asked directly. Patient provided emotional support and encouragement. Has limited help and has a 17yo Son in the home. Patient wants to speak with PCP who knows her. Patient reports that her BP remains elevated, No reading available at time of call. Continues on Nifedipine 60 mg po every day. Reports that medication had been adjusted up and down and that BP remains unstable.Telesick visit provided for 04/15/24 10 am with PCP, advised patient to check BP TID and record readings pending TSK visit. Patient also given ASK/ appt as next available to schedule for evaluation of back pain and numbness in legs. Patient currently taking Ibuprofenwith no noted relief. Forwarded to PCP and team as FYI to follow up PRN Multiple (3) protocols were used on this call. Disposition for Call: See in Office or Video Visit within 3 Days Protocol Used: Blood Pressure - High (Adult) Protocol-Based Disposition: See in Office or Video Visit Today Override (Final) Disposition: See in Office or Video Visit within 3 Days Override Reason: No appointments available Video visit offer not recorded Positive Triage Question: * Patient wants to be seen * All higher-acuity triage questions were negative Protocol Used: - Depression (Adult) Protocol-Based Disposition: See in Office or Video Visit within 3 Days Video visit offer not recorded Positive Triage Question: * Patient wants to be seen * All higher-acuity triage questions were negative Care Advice Discussed: * Ask for Childcare Help * Reasons To Call Back - You feel like harming yourself or the baby - You become worse. Protocol Used: Back Pain (Adult) Protocol-Based Disposition: See in Office or Video Visit Today Override (Final) Disposition: See in Office or Video Visit within 2 Weeks Override Reason: No appointments available Override Notes: Patient declines ED or WIC as she has been there with no relief Positive Triage Question: * Numbness in a leg or foot (i.e., loss of sensation) * All higher-acuity triage questions were negative Care Advice Discussed: * Pain Medicines * Reasons To Call Back - Fever occurs - Loss of control of your bladder or bowel - Severe pain not better after taking pain medicines - Pain begins to shoot into the leg * Telephone Encounter - Kayla Briggs - 04/13/2024 1:36 PM EST Symptoms: Back Pain - Not From Injury, Leg Pain - Not From Injury Outcome: Schedule an urgent appointment (within 1 hour) or talk to a nurse or provider soon Reason: Weakness of the leg The caller accepted this outcome. documented in this encounter Plan of Treatment Upcoming Encounters Date Type Department Care Team (Late st Contact Info) Description 08/04/2024 10:30 AM EDT Medication Management [facility] MED & PEDS [address] [place] [address] Nicole Ramsey PharmD [address] [place] [address] documented as of this encounter Visit Diagnoses Not on filedocumented in this encounter Additional Health Concerns Assessment Noted Time PHQ-9 Depression Total Score: 17 023 11:47 AM EDT documented as of this encounter Care Teams Assembler Steam And Gas Turbine Relationship Specialty Start Date End Date Soledad Ocasio MD [address] [place] [address] PCP - General Family Medicine 08/07/22 Nicole Ramsey, Janis [address] [place] [address] Pharmacist Internal Medicine 07/07/24 Chapis Bonner Carton Marker Machine 07/23/23 documented as of this encounter
--- OUTSIDE RECORDS SUMMARY | 2024-07-30 13:29 | XMS_ITS | Encounter Summary ---
Author Organization [employer] Address [address] [facility] 7t [place] [address] Care Team Providers Care Hvac Operations Technician Name Role Phone Soledad Ocasio MD Primary Care Provider [phone] Nicole Ramsey PharmD Unavailable [phone] Reason for Visit * Reason Comments Med Refill Encounter Details Date Type Department Care Team ([facility] st Contact Info) Description 05/28/2024 Refill [facility] CHC MED & PEDS [address] [place], [place] [phone] Soledad Ocasio MD [address] [place] [address] Mood disorder (CMS/HCC) Social History Tobacco Use Types Packs/Day Years [...] Description 08/04/2024 10:30 AM EDT Medication Management [facility] MED & PEDS [address] [place] [address] Nicole Ramsey PharmD [address] [place] [address] documented as of this encounter Visit Diagnoses Diagnosis Mood disorder (CMS/HCC) Unspecified episodic mood disorder documented in this encounter Additional Health Concerns Assessment Noted Time PHQ-9 Depression Total Score: 15 025 9:18 AM EST documented as of this encounter Care Teams Hvac Operations Technician Relationship Specialty Start Date End Date Soledad Ocasio MD [address] [place] [address] PCP - General Family Medicine 08/07/22 Nicole Ramsey, JustinaD [address] [place] [address] Pharmacist Internal Medicine 07/07/24 Chapis Bonner Heliarc Welder 07/23/23 documented as of this encounter
[2024-07-30 14:06] LABS: MANUAL DIFF FLAG NO
[2024-07-30 14:11] LABS: Basophils Percent Auto 0.3 % (0-2); Eosinophils Absolute Auto 0.2 X10*3/uL (0.0-0.4); Eosinophils Percent Auto 2.6 % (0-4); Hematocrit 34.6 % (37.0-47.0); Hemoglobin 11.2 g/dl (12.0-16.0); Imm Gran Abs Auto 0.03 X10*3/uL (0.00-0.03); Imm Gran Pct Auto 0.3 % (0.0-0.4); Lymphocytes Absolute Auto 2.8 X10*3/uL (1.2-4.9); Lymphocytes Percent Auto 31.7 % (20-40); Mean Corpuscular HGB Conc 32.4 g/dl (31.0-35.0); Mean Corpuscular Hemoglobin 26.2 pg (27.0-33.0); Mean Corpuscular Volume 80.8 fL (80.0-98.0); Mean Platelet Volume 10.4 fL (9.4-12.3); Monocytes Absolute Auto 0.4 X10*3/uL (0.1-1.2); Monocytes Percent Auto 4.8 % (2-11); Neutrophils Absolute Auto 5.2 x10*3/uL (2.0-8.3); Neutrophils Percent Auto 60.3 % (45-73); Platelet Count 390 X10*3/uL (160-400); Red Blood Count 4.28 X10*6/uL (4.20-5.50); Red Cell Distribution Width 14.6 % (11.0-16.0); White Blood Count 8.7 X10*3/uL (4.8-10.8)
[2024-07-30 14:35] LABS: Anion Gap 13 (12-20); Blood Urea Nitrogen 16 mg/dL (9-16); Calcium 9.6 mg/dL (8.4-10.2); Carbon Dioxide 25 mmol/L (22-29); Chloride 103 mmol/L (96-108); Estimated Glomerular Filt Rate > 60; Glucose Random 96 mg/dL (60-115); Iron 65 mcg/dL (30-160); Magnesium 2.2 mg/dL (1.6-2.6); Percent Iron Saturation 22 % (15-50); Potassium 3.3 mmol/L (3.3-5.1); Sodium 138 mmol/L (135-145); Total Iron Binding Capacity 298 mcg/dL (228-428); Unsaturated Iron Binding 233 ug/dL
[2024-07-30 14:49] LABS: Ferritin 89 ng/mL (10-122); TSH reflex Free T4 0.77 uIU/mL (0.32-4.0)
[2024-07-30 14:56] LABS: Folate 6.6 ng/mL (> or = 4.0); Vitamin B12 547 pg/mL (200-900)
== END 2024-07-30 11:31 | disposition home or self-care (01) ==
LOC: HO.CHCLDS 11:30
PROVIDERS: Visit Provider Family Medicine
DX: I10 Essential (primary) hypertension (principal); G25.81 Restless legs syndrome
CPT/HCPCS: 36415; 80048; 82607; 82728; 82746; 83540; 83735; 84443; 85025

== ENCOUNTER 2024-10-05 11:18 | Outpatient (REF) | payer MEDICAID, SELFPAY ==
--- NOTE | ~2024-10-05 | XR_ITS ---
CLINICAL HISTORY: M25.561 - Pain in right knee 7 view bilateral knee Comparison: None available Findings: No acute displaced fracture or dislocation of either knee. Mild/minimal osteoarthritis of the knees including osteophytosis and joint space narrowing. Question mild articular surface irregularity of the right lateral femoral condyle. This is not further evaluated by radiographs. Mild lateral positioning of the patella as can be associated with patellofemoral tracking syndrome. Small to moderate bilateral effusions are present. No radiopaque retained foreign body. IMPRESSION: 1. Lateral positioning of the right patella as can be associated with patellofemoral tracking syndrome. 2. Ssyhe-ew-djkraaui bilateral effusions. This document has been electronically signed by: Rusty Darby MD on 10/05/2024 19:16:49
--- NOTE | ~2024-10-05 | XR_ITS ---
CLINICAL HISTORY: M54.50 - Low back pain, unspecified 5 views lumbar spine Comparison: None Findings: Normal alignment. No acute fractures or dislocation. No significant degenerative change. IMPRESSION: No acute findings. This document has been electronically signed by: Sary Keen MD on 10/05/2024 17:00:48
== END 2024-10-05 11:19 | disposition home or self-care (01) ==
LOC: HO.XRAY 11:18
PROVIDERS: PCP Family Medicine; Referring Provider Family Medicine; Visit Provider Nurse Practitioner Family
DX: M54.50 Low back pain, unspecified (principal); M25.561 Pain in right knee; M25.462 Effusion, left knee; M25.461 Effusion, right knee
CPT/HCPCS: 72110; 73562; 99212

== ENCOUNTER 2024-10-05 11:18 | Outpatient (AMB) | payer MEDICAID, SELFPAY ==
--- NOTE | 2024-10-05 11:20 | A.OFFVIS_ITS ---
Vital Signs 10/05/24 11:31 Height 4 ft 10 in Weight 193 lb BMI 40.3 BP 147/78 H Blood Pressure Location Rt brachial Position Sitting Pulse 77 Pulse Source Pulse Oximeter Pulse Oximetry (%) 100 Oxygen Delivery Method Room Air Intake Visit Reasons: Polyarthralgia Intake Note: Pain today 8/10 Liquified Natural Gas Technician Required: No Accompanied by: Self / Same As Patient Allergies acetaminophen [From Percocet] Allergy (Unknown, Verified 10/05/24 11:31) Hives oxycodone [From Percocet] Allergy (Unknown, Verified 10/05/24 11:31) Hives HPI Comments Details: The patient is a 39-year-old female presenting with evaluation and management of widespread body pain and joint pain, focusing particularly on her lower back and knees. She describes the onset of chronic pain several years ago, with a work- related back injury from 2014 contributing to ongoing lumbar discomfort. The pain now affects her daily functions, including sitting and sleeping, and is noted as progressively worsening over the years. Past imaging and tests revealed inflammation without clear etiology, and she is being evaluated for possible fibromyalgia and arthritis due to family history. There's notable impact from her weight on pain severity, and she is on medication like duloxetine, advising discussions around changes in medications due to low efficacy and dietary modifications. Patient reports completing PT and OT therapy in the past without any improvement. Denies previous spine or joint surgery or injections. - Onset: Pain initiated years ago with gradual increase over time. - Quality and Character: Stabbing, pulling, throbbing and diffuse body pain; c hronic in nature, worse with movements, rated 8/10. - Primary Location: Lower back and knees. - Radiation: Numbness extends from knee to foot. - Exacerbating Factors: Sitting, walking, bending, weight bearing. - Relieving Factors: None conclusively effective. - Functional Interference: Difficulty with walking, bending, sleeping; affects every movement. - Affect: Pain impacts sleep and daily mood, increases feelings of sluggishness and fatigue. - Analgesia: Previously attempted Tylenol and ibuprofen, both ineffective; now on duloxetine. - Adverse Effects: No side effects from pain medications noted. - Activities of Daily Living: Affected; functioning deteriorated with pain impairing mobility and sleep. - Aberrant Drug Related Behaviors: None reported; no misuse of medications discussed. [facility] Medical History (Updated 10/05/24 @ 21:32 by MESHA Khan) Morbid obesity with BMI of 40.0-44.9, adult Chronic pain syndrome Polyarthralgia Anemia Hypertension Migraine Social History Patient Tobacco Use Status: Never used Tobacco Review of Systems Const Details: - Musculoskeletal: Reports widespread body pain, joint pain, and difficulty walking. - Neurological: Reports chronic migraines, lower extremity numbness. Denies bladder or micah dysfunction or saddle anesthesia. - Psychiatric: Reports depressive symptoms affected by pain. - Respiratory: Denies smoking; reports asthma. All systems reviewed & are unremarkable except as noted in HPI and below Physical Exam Vital Signs: Last Vital Signs Pulse 77 10/05/24 11:31 BP 147/78 H 10/05/24 11:31 Pulse Ox 100 10/05/24 11:31 Oxygen Delivery Method Room Air 10/05/24 11:31 BMI result Body Mass Index 40.3 General: Appears afebrile. Morbidly obese. Alert and oriented. Mood and affect appropriate. Follows and participates in conversation appropriately. Respiratory effort is unlabored. No cough. Able to transition from sit to stand unassisted. Ambulates with bilaterally normal heel strike and toe off. General: Yes no CVA tenderness Back/Spine/Pelvis Other: Patient is able to walk and stand on heels and tip toes with mild to moderate difficulties due to knee pain otherwise demonstrating good motor tone. No limping. Can flex forward to 75-80 degrees and extend to 10-15 degrees before experiencing lumbar pain. Demonstrates 5/5 strength of quadriceps bilaterally as well as flexion/dorsiflexion of bilateral feet against resistance. 2+ pedal pulses bilaterally. Straight leg rise with dorsiflexion negative bilaterally. +2 patellar and achilles reflexes bilaterally. Facet loading test positive bilaterally. Adolfo sign, Lan?s, Pelvic compression and Stinchfield tests are positive bilaterally. No groin pain with I/E hip rotations. Valsalva maneuver negative. Multiple widespread TTPs 16/16 bilaterally, including upper and lower extremities. Back: no CVA tenderness and back tenderness Cervical Spine: cervical ROM normal, cervical muscular tenderness, pain with cervical ROM, No Cervical spine scars present, cervical spasm and Cervical spine tenderness Thoracic/Lumbar Spine: thoracic and lumbar spine normal to inspection, No Thoracic/lumbar spine scar(s), Lasegue's sign negative, straight leg raise negative bilaterally, pain with thoraco-lumbar ROM, paraspinal muscle tenderness, thoraco-lumbar ROM limited, No thoracic spinal tenderness and lumbar spinal tenderness at L4 and at L5 Pelvis: buttock tenderness bilaterally Sacroiliac joints: bilaterally tender to palpation Extrem General: Yes capillary refill normal, Yes no clubbing, cyanosis or edema and Yes no calf tenderness Right lower extremity: knee (Limited ROM due to pain) Details: tenderness Location: of the patella, of the popliteal fossa, of the medial joint line and of the pre-patellar area, swelling Location: of the popliteal fossa and crepitus; no ecchymosis and no unusual warmth Left lower extremity: knee (Limited ROM due to pain) Details: tenderness Location: of the popliteal fossa and of the medial joint line, swelling Location: of the popliteal fossa and crepitus; no ecchymosis and no unusual warmth Results Reviewed Results Reviewed: XR Knee Filiberto 3V 10/05/24 7 view bilateral knee Comparison: None available Findings: No acute displaced fracture or dislocation of either knee. Mild/minimal osteoarthritis of the knees including osteophytosis and joint space narrowing. Question mild articular surface irregularity of the right lateral femoral condyle. This is not further evaluated by radiographs. Mild lateral positioning of the patella as can be associated with patellofemoral tracking syndrome. Small to moderate bilateral effusions are present. No radiopaque retained foreign body. IMPRESSION: 1. Lateral positioning of the right patella as can be associated with patellofemoral tracking syndrome. 2. Rdaye-aw-zoqkiryu bilateral effusions. XR lumbar spine 4V min 10/05/24 5 views lumbar spine Comparison: None Findings: Normal alignment. No acute fractures or dislocation. No significant degenerative change. IMPRESSION: No acute findings. Assessment & Plan Assessment & Plan (1) Chronic pain syndrome: Code(s): G89.4 - Chronic pain syndrome Category: Medical (2) Chronic low back pain: Code(s): M54.50 - Low back pain, unspecified; G89.29 - Other chronic pain Category: Medical (3) Lumbosacral spondylosis: Code(s): M47.817 - Spondylosis without myelopathy or radiculopathy, lumbosacral region Category: Medical (4) Bilateral knee pain: Code(s): M25.561 - Pain in right knee; M25.562 - Pain in left knee Category: Medical (5) Polyarthralgia: Code(s): M25.50 - Pain in unspecified joint Category: Medical (6) Fibromyalgia: Code(s): M79.7 - Fibromyalgia Category: Medical (7) Morbid obesity with BMI of 40.0-44.9, adult: Code(s): E66.01 - Morbid (severe) obesity due to excess calories; Z68.41 - Body mass index [BMI] 40.0-44.9, adult Category: Medical (8) Patellofemoral syndrome: Code(s): M22.2X9 - Patellofemoral disorders, unspecified knee Category: Medical Plan Patient underwent today after this visit the x-rays of the lumbar spine and bilateral knees as noted above. She will be referred to a fuel cell battery technician for further evaluation of possible autoimmune conditions with h/o elevated ESR. Patient will benefit from increased physical activity, walking, home light exercises such as swimming with aquatherapy, stretching and acupuncture; weight loss, adequate hydration and good posture. Consider restarting gabapentin at bedtime with titration up to twice daily if well tolerated. Side effects and precautions were discussed with patient. Orthopedic referral for further evaluation given today's exam, decreased mobility and xray findings for lateral positioning of the right patella as can be associated with patellofemoral tracking syndrome and ggdev-if-ybznsmwg bilateral effusions. The physical therapy plan will be initiated focusing on knee and lower back pain. Adjustments to her medication regimen may include reintroducing gabapentin, considering past experiences with this medication for restless leg syndrome. Patient's nutritional plan will be reinforced to aid in weight loss and reduce inflammation. All questions and concerns have answered and patient with the treatment. Follow-up after PT and sooner as needed. Patient was informed and verbally consented to the use of an ambient scribe for clinic note documentation during this visit. Orders: Orders XR lumbar spine 4V min Today G89.29 - Other chronic pain, M47.817 - Spondylosis without myelopathy or radiculopathy, lumbosacral region, M54.50 - Low back pain, unspecified XR knee RT 3V Today M25.561 - Pain in right knee, M25.562 - Pain in left knee PT Evaluation and Treatment Today G89.29 - Other chronic pain, G89.4 - Chronic pain syndrome, M25.561 - Pain in right knee, M25.562 - Pain in left knee, M47.817 - Spondylosis without myelopathy or radiculopathy, lumbosacral region, M54.50 - Low back pain, unspecified Referrals Orthopedics Referral M22.2X9 - Patellofemoral disorders, unspecified knee, M25.561 - Pain in right knee, M25.562 - Pain in left knee Rheumatology Referral G89.4 - Chronic pain syndrome, M25.50 - Pain in unspecified joint, M79.7 - Fibromyalgia, R70.0 - Elevated erythrocyte sedimentation rate Medications: New gabapentin 300 mg PO BID 30 days 60 caps 0RF pain G89.4 - Chronic pain syndrome, M79.7 - Fibromyalgia Coding Level of Care Code New Pt Level 4 (41834) Complex EM visit Add On G2211 Diagnoses Chronic pain syndrome G89.4 Chronic low back pain M54.50; G89.29 Lumbosacral spondylosis M47.817 Bilateral knee pain M25.561; M25.562 Polyarthralgia M25.50 Fibromyalgia M79.7 Morbid obesity with BMI of 40.0-44.9, adult E66.01; Z68.41 Patellofemoral syndrome M22.2X9
[2024-10-05 11:31] VITALS: BP 147/78; PULSE 77; O2SAT 100; BMI 40.3
--- OUTSIDE RECORDS SUMMARY | 2024-10-05 13:37 | XMS_ITS | Encounter Summary ---
Author Organization [employer] Address [address] [place] [address] Care Team Providers Care Museum Docent Name Role Phone Soledad Ocasio MD Primary Care Provider [phone] Nicole Ramsey PharmD Unavailable [phone] Encounter Details Date Type Department Care Team (Late st Contact Info) Description 07/07/2024 Orders Only [facility] MEDICINE [address] [place], [place] [phone] Sona Mccarthy MD [address] [place], [place] [phone] Social History Tobacco Use Types Packs/Day Years [...] Care Team (Late st Contact Info) Description 10/19/2024 11:30 AM EDT Medication Management [facility] MED & PEDS [address] [place] [address] Nicole Ramsey PharmD [address] [place] [address] documented as of this encounter Visit Diagnoses Not on filedocumented in this encounter Additional Health Concerns Assessment Noted Time PHQ-9 Depression Total Score: 0 06/17/19 25 1:39 PM EST documented as of this encounter Care Teams Museum Docent Relationship Specialty Start Date End Date Soledad Ocasio MD [address] [place] [address] PCP - General Family Medicine 08/07/22 Nicole Ramsey PharmD [address] [place] [address] Pharmacist Internal Medicine 07/07/24 Chapis Bonner Merchandising Manager 07/23/23 documented as of this encounter
== END 2024-10-05 11:55 | disposition home or self-care (01) ==
LOC: HO.PMC 11:19
PROVIDERS: PCP Family Medicine; Referring Provider Family Medicine; Visit Provider Nurse Practitioner Family
DX: G89.4 Chronic pain syndrome (principal); M54.50 Low back pain, unspecified; G89.29 Other chronic pain; M47.817 Spondylosis without myelopathy or radiculopathy, lumbosacral region; M25.561 Pain in right knee; M25.562 Pain in left knee; M25.50 Pain in unspecified joint; M79.7 Fibromyalgia; E66.01 Morbid (severe) obesity due to excess calories; Z68.41 Body mass index [BMI] 40.0-44.9, adult; M22.2X9 Patellofemoral disorders, unspecified knee
CPT/HCPCS: 99204

== ENCOUNTER → 2024-10-05 12:04 | Outpatient (BNV) | payer MEDICAID, SELFPAY | PROVIDERS: PCP Family Medicine; Referring Provider Family Medicine; Visit Provider Radiology Diagnostic Radiology | DX: M54.50 Low back pain, unspecified (principal); M17.9 Osteoarthritis of knee, unspecified | CPT/HCPCS: 72110; 73562 ==

== ENCOUNTER 2024-11-30 13:06 | Outpatient (AMB) | payer MEDICAID, SELFPAY ==
[2024-11-30 13:15] VITALS: BMI 40.3
--- NOTE | 2024-11-30 13:15 | MHC.OFFVIS ---
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 The patient states that she 1st injured her left knee approximately 10 years ago. She twisted her knee and had acute onset of pain. Most of the pain is along the medial aspect of her knee. Her symptoms have gotten worse over the last few years. She has had multiple cortisone injections. The most recent cortisone injection gave her minimal relief. She has failed the last 6 weeks of conservative treatment which have included Tylenol, anti-inflammatory medicines, a home exercise program and physical therapy exercises. She states that her left knee will give out several times per day. Know: No HX:Yes Allergies acetaminophen (From Percocet) Allergy (Unknown, Verified 11/30/24 13:22) Hives oxycodone (From Percocet) Allergy (Unknown, Verified 11/30/24 13:22) Hives Medication List - Last Reconciled 11/30/24 by Jeff Romo MD albuterol sulfate 90 mcg/actuation (Ventolin HFA) 2 puffs inhalation Q6H PRN amlodipine 10 mg PO DAILY aripiprazole 15 mg PO DAILY atenolol 50 mg PO DAILY vznfznyujp-fjhjmwqljk-mmq-cod [id number] mg 2 caps PO Q4H PRN chlorthalidone 25 mg PO DAILY divalproex 500 mg PO BID duloxetine 20 mg PO BID famotidine 20 mg PO DAILY ferrous gluconate 324 mg PO DAILY fluticasone propionate 50 mcg/actuation (Allergy Relief (fluticasone)) 1 spray intranasal DAILY gabapentin 300 mg PO BID 30 days hydralazine 10 mg PO TID levonorgestrel (Liletta) intrauterine lidocaine 5% 1 patch topical DAILY losartan 100 mg PO DAILY rizatriptan take 1 tab at onset of headache; if no relief may repeat 1 tab after at least 2 hrs; max = 3 tabs/24 hr PO tirzepatide (weight loss) (Zepbound) 7.5 mg subcut QWEEK trazodone 150 mg PO BEDTIME PRN [facility] Medical History (Updated 11/30/24 @ 13:39 by Jeff Romo MD) Morbid obesity with BMI of 40.0-44.9, adult Chronic pain syndrome Polyarthralgia Anemia Hypertension Migraine Social History Patient Tobacco Use Status: Never used Tobacco Physical Exam Vital Signs: BMI result Body Mass Index 40.3 Const Other: Well-nourished well-developed very friendly female awake alert and oriented x3 in no acute distress Extrem Other: Bilateral knee examination shows minimal effusions, minimal crepitus with range of motion, tenderness along her medial joint lines, positive Geeta's test Results Reviewed Results Reviewed: Standing full weight-bearing x-rays of the patient's bilateral knee show mild joint space narrowing, no acute bony abnormalities Assessment & Plan Assessment & Plan (1) Tear of medial meniscus of left knee: Code(s): S83.242A - Other tear of medial meniscus, current injury, left knee, initial encounter Category: Medical Plan Ms. Ackerman presents with bilateral knee pains and mechanical symptoms most likely due to medial meniscus tearing. Thus, I will send the patient for an MRI of her left knee for further evaluation. I will see her back once the MRI is completed to discuss the findings and treatment options. She will continue with her activity modifications in the meantime. Feel free to call me at any time should questions regarding her orthopedic management arise. Thank you very much for asking me to see this very friendly patient. I spent 20 minutes in reviewing the patient's records and imaging studies, seeing the patient and documenting in the medical record. Orders: Orders MR knee LT wo con 12/01/24 S83.242A - Other tear of medial meniscus, current injury, left knee, initial encounter Coding Level of Care Code New Pt Level 3 (40394) Complex EM visit Add On G2211 Diagnoses Tear of medial meniscus of left knee S83.242A
--- OUTSIDE RECORDS SUMMARY | 2024-11-30 13:45 | XMS_ITS | Clinical Summary ---
Author Organization [facility] Address [address] [place] [address] Care Team Providers Care Fashion Illustrator Name Role Phone Barbara Cabrera MD Primary Care Provider [phone] Social History Tobacco Use Types Packs/Day Years [...] Cervical Cancer Screening: P ap Smear 07/02/2008 HIV Screening 03/27/2022 Hepatitis C Screening 03/27/2022 Social Influencers of Health Screening 03/27/2022 COVID-19 Vaccine (2023-2 5 season) 2023 Depression Screening 04/28/2024 Influenza Vaccine (#1) 2024 HIB Vaccines Aged Out No longer [...] age to complete this topic Meningococcal B Vaccine Aged Out No l onger eligible based on patient's age to complete this topic Pneumococcal Vaccine: Pediat rics (0 to 5 Years) and At-Risk Patients (6 to 49 Years) Aged Out No longer eligible b ased on patient's age to complete this topic RSV Immunization Patients Un anshul 20 months Aged Out No longer eligible b ased on patient's age to complete this topic Varicella Vaccines Aged Out No longer eligible based on patient's age to complete this topic Care Teams Fashion Illustrator Relationship Specialty Start Date End Date Barbara Cabrera MD [address] [place] [address] PCP - General Internal Medicine 02/08/19
--- OUTSIDE RECORDS SUMMARY | 2024-11-30 13:45 | XMS_ITS | Clinical Summary ---
Author Organization [facility] Address [address] [address] Phone Care Team Providers Care Textile Converter Name Role Phone Soledad Ocasio MD Primary Care Provider [phone] Allergies No known active allergies Medications * This document contains information received from the source organization and may not represent a complete record from that organization. traZODone (DESYREL) 150 MG tablet Take 150 mg by mouth once daily as needed 5 Active Tirzepatide-Awais ght Management (Zepbound) 7.5 MG/0.5ML solution Inject 7.5 mg under the skin 5 Active rizatriptan (MAXALT) 10 MG tablet Take 10 mg by mouth 5 Active losartan (COZAAR) 100 MG tablet Take 100 mg by mouth in the morning. 5 Active Lancets (freestyle) lancets USE DIRECTED FOUR TIMES DAILY 4 Active Insulin Pen Needle (B-D UF III MINI PEN NEEDLES) 31G X 5 MM misc USE TO INJECT INSULIN 4 TIMES A DAY DIRECTED. 5 Active hydrALAZINE 25 MG tablet Take 25 mg by mouth in the morning and 25 mg at noon and 25 mg in the evening. 5 Active FREESTYLE LITE test strip USE DIRECTED FOUR TIMES DAILY 4 Active gabapentin (NEURONTIN) 300 MG capsule TAKE 1 CAPSULE BY MOUTH TWICE DAILY FOR PAIN 5 Active ferrous sulfate 325 (65 Fe) MG EC tablet 5 Active escitalopram (LEXAPRO) 10 MG tablet Take 1 tablet by mouth in the morning. 5 Active DULoxetine (CYMBALTA) [address] capsule Take 20 mg by mouth in the morning and 20 mg in the evening. 5 05/20/19 26 Active divalproex (DEPAKOTE) 500 MG EC tablet Take 1 tab by mouth in the morning and 2 tabs in the evening. Do not crush, chew, or split. Active chlorthalidone 25 MG tablet Take 25 mg by mouth in the morning. Active atenolol (TENORMIN) 50 MG tablet Take 50 mg by mouth in the morning. 5 06/17/19 Active amLODIPine (NORVASC) 10 MG tablet Take 10 mg by mouth in the morning. Active albuterol (PROVENTIL,VENT ANN MARIE) 2 MG/5ML syrup Take 2 mg by mouth in the morning and 2 mg in the evening and 2 mg before bedtime. Active ARIPiprazole (ABILIFY) 10 MG tablet Take 15 mg by mouth in the morning. 11/22/19 Active Problems Problem Noted Date Diagnosed Date Severe obesity 11/01/2024 Body mass index 30+ - obesity 11/01/2024 Resistant hypertension 09/16/2024 Restless leg syndrome 04/30/2024 Primary hypertension 04/30/2024 Chronic pelvic pain of female 04/15/2024 Personal history of gestational diabetes 024 Past history of po stpartum gestational hypertension 09/10/2023 Urinary tract infection in 09/10/2023 Maternal drug exposure 09/10/2023 Elderly multigravida, with c urrent , unspecified as to episode of care or not applicable 09/10/2023 Alopecia 03/05/2023 Diarrhea 01/28/2023 Pain of knee region 11/19/2022 Posttraumatic stress disorder 10/28/2022 Chronic low back pain 10/07/2022 Obesity 09/02/2022 Mixed anxiety and depressive disorder 09/02/2022 Gestational diabetes mellitus 09/02/2022 Attention deficit hyperactivity disorder, combin ed type 09/02/2022 Asthma 09/02/2022 Low grade squamous intraepit helial lesion on cervical Papanicolaou smear 09/02/2022 Mood disorder 05/15/2018 Mild intermittent asthma 05/15/2018 Migraine 05/15/2018 Abnormal cervical Papanicolaou smear 05/15/2018 Encounters * This document contains information received from the source organization and may not represent a complete record from that organization. Date Type Department Care Team Description 11/06/2024 Orders Only [facility] [address] [place] [phone] Jigar Bello MD Hypertension 11/05/2024 8:30 AM EDT Office Visit [facility] [address] [address] Jigar Bello MD Hypertension (Primary Dx); Obesity, not otherwise specified from Last 3 Months Immunizations Immunization Administration Dates Next Due HPV, Quadrivalent 08/24/2008,06/21/2008 Hepatitis B 06/17/2023,,12/20/2022,1998,01/06/1996,12/06/1995 Influenza (IM) Preservative Free 09/16/2024 Influenza, Quadrivalent, Pre servative Free 01/21/2023,02/29/2020,02/05/2017 MMR 01/27/1990,07/01/1989,11/26/1988 Pfizer SARS-COV-2 01/19/2021,12/29/2020 Pneumococcal Conjugate Pcv 20 09/16/2024 Tdap 11/19/2023,05/12/2020,02/02/2010 Social History Tobacco Use Types Packs/Day Years Used Date Smoking Tobacco: Never Assessed Comments Unknown Sex and Gender Information Value Date Recorded Sex Assigned at Not on file Legal Sex Female 2:09 PM EDT Gender Identity Not on file Sexual Orientation Not on file Last Filed Vital Signs Vital Sign Reading Time Taken Comments Blood Pressure 130/82 11/05/2024 9:05 AM EDT Pulse 80 11/05/2024 9:05 AM EDT Temperature - - Respiratory Rate - - Oxygen Saturation - - Inhaled Oxygen Concentration - - Weight 87.1 kg (192 lb) 11/05/2024 9:05 AM EDT Height 147.3 cm (4' 10 ) 11/05/2024 9:05 AM EDT Body Mass Index 40.13 11/05/2024 9:05 AM EDT Plan of Treatment Upcoming Encounters Date Type Department Care Team (Late st Contact Info) Description 12/16/2024 9:00 AM EDT Clinical Support [facility] P. [address] [address] 12/17/2024 9:15 AM EDT Office Visit [facility] P[facility] [address] [phone] Jigar Bello MD [address] [phone] Health Maintenance Due Date Last Done Comments Diabetes: Hemoglobin A1C 09/21/2024 04/15/2024 Diabetes: Ophthalmology Exam 09/21/2024 Diabetes: Pedal Pulse Checked 09/21/2024 Diabetes: Sensory Foot Exam 09/21/2024 Diabetes: Visual Foot Exam 09/21/2024 Influenza Vaccine (#1) 2024 , 01/21/2023, 02/29/2020, Additional history exists Hepatitis B Vaccine Completed 06/17/2023, 01/21/2023, 12/20/2022, Additional history exists Pneumococcal Vaccine: Peds ( 0 to 5 Years) and At-Risk Patients (6 to 49 Years) Completed 09/16/2024 Procedures Procedure Name Priority Date/Time Associated Diagnosis Comments URINE ALBUMIN / CREATININE RATIO Routine 11/05/2024 9:54 AM EDT Hypertension RENIN ACTIVITY Routine 11/05/2024 9:42 AM EDT Hypertension ALDOSTERONE Routine 11/05/2024 9:42 AM EDT Hypertension METANEPHRINES,FRACTI ONATED, PLASMA FREE Routine 11/05/2024 9:42 AM EDT Hypertension from Last 3 Months Results * urine albumin / creatinine ratio (11/05/2024 9:54 AM EDT) Creatinine, Ur 199.9 Not Estab. mg/dL [facility] Albumin, Urine 27.2 Not Estab. ug/mL [facility] Albumin/Creatin ine Ratio 14 0 - 29 mg/g creat [facility] Comment: Normal: 0 - 29 Moderately increased: 30 - 300 Severely increased: >300 Urine Urine specimen obtained by clean catch procedure / Unknown 11/05/2024 9:54 AM EDT 11/05/2024 Jigar Bello MD LAB URINE ORDERABLES Final Resul t Performing Organization Address City/[facility]/ZIP Co de Phone Number [facility] [address] [place] [address] * Renin Activity, Plasma (11/05/2024 9:42 AM EDT) Renin Activity 0.239 0.167 - 5.380 ng/mL/hr [facility] Blood Venous blood / Unknown 11/05/2024 9:42 AM EDT 11/05/2024 Narrative [facility] - 11/15/2024 12:06 PM EDT Test(s) 045628-Figse Activity, Plasma was developed and its performance characteristics determined by [facility]. It has not been cleared or approved by the Food and Drug Administration. Jigar Bello MD LAB BLOOD ORDERABLES Final Resul t Performing Organization Address City/[facility]/ZIP Co de Phone Number [facility] [place] [address] * Metanephrines,Fractionated, Plasma Free (11/05/2024 9:42 AM EDT) Normetanephrin e, Pl <25.0 0.0 - 210.1 pg/mL [facility] Metanephrine, Plasma <25.0 0.0 - 88.0 pg/mL [facility] Blood Venous blood / Unknown 11/05/2024 9:42 AM EDT 11/05/2024 Narrative [facility] - 11/15/2024 12:06 PM EDT Test(s) 326671-Lnhqbjhyyvksyal, Pl; 162114-Hdkwybrnozvq, Pl was developed and its performance characteristics determined by [facility]. It has not been cleared or approved by the Food and Drug Administration. Jigar Bello MD LAB BLOOD ORDERABLES Final Resul t Performing Organization Address [facility] Co de Phone Number [facility] [address] [place] [address] * Aldosterone (11/05/2024 9:42 AM EDT) [facility] Aldosterone 4.1 0.0 - 30.0 ng/dL [facility] Blood Venous blood / Unknown 11/05/2024 9:42 AM EDT 11/05/2024 Narrative [facility] - 11/15/2024 12:06 PM EDT Test(s) 545745-Bqyfedetdod was developed and its performance characteristics determined by [facility]. It has not been cleared or approved by the Food and Drug Administration. Jigar Bello MD LAB BLOOD ORDERABLES Final Resul t Performing Organization Address City/[facility]/ZIP Co de Phone Number [facility] [address] [place] [address] from Last 3 Months Insurance Medicaid [place] Care Teams Textile Converter Relationship Specialty Start Date End Date Soledad Ocasio MD [address] [place] [id number] PCP - General Family Medicine 09/21/24
--- OUTSIDE RECORDS SUMMARY | 2024-11-30 13:45 | XMS_ITS | Encounter Summary ---
Author Organization [employer] Address [address] [facility] [place] [address] Care Team Providers Care Bottle Inspector Name Role Phone Soledad Ocasio MD Primary Care Provider [phone] Nicole Ramsey PharmD Unavailable [phone] Encounter Details Date Type Department Care Team (Late st Contact Info) Description 07/07/2024 Orders Only [facility] MEDICINE [address] [place], [place] [phone] Sona Mccarthy MD [address] [place], [place] [id number] Social History Tobacco Use Types Packs/Day Years [...] Care Team (Late st Contact Info) Description 12/03/2024 1:45 PM EDT Office Visit [facility] [address] [place] [address] Soledad Ocasio MD [address] [place] [address] documented as of this encounter Visit Diagnoses Not on filedocumented in this encounter Additional Health Concerns Assessment Noted Time PHQ-9 Depression Total Score: 0 06/17/19 1:39 PM EST documented as of this encounter Care Teams Bottle Inspector Relationship Specialty Start Date End Date Soledad Ocasio MD [address] [place] [address] PCP - General Family Medicine 08/07/22 Nicole Ramsey PharmD [address] [place] [address] Pharmacist Internal Medicine 07/07/24 11/06/24 documented as of this encounter
== END 2024-11-30 13:37 | disposition home or self-care (01) ==
LOC: HO.HOS 13:07
PROVIDERS: PCP Family Medicine; Visit Provider Orthopaedic Surgery
DX: S83.242A Other tear of medial meniscus, current injury, left knee, initial encounter (principal)
CPT/HCPCS: 99203

== ENCOUNTER → 2024-11-30 13:06 | Outpatient (BNVA) | payer MEDICAID, SELFPAY | PROVIDERS: PCP Family Medicine; Visit Provider Orthopaedic Surgery | DX: M25.561 Pain in right knee (principal); M25.562 Pain in left knee; S83.242A Other tear of medial meniscus, current injury, left knee, initial encounter | CPT/HCPCS: 99202 ==

== ENCOUNTER 2024-12-13 20:01 | Outpatient (REF) | payer MEDICAID, SELFPAY ==
--- NOTE | ~2024-12-13 | MR_ITS ---
EXAMINATION: MRI LEFT KNEE WITHOUT CONTRAST HISTORY: S83.242A - Other tear of medial meniscus, current injury, left knee, initial... COMPARISON: Correlation is made with plain films of the left knee dated 10/05/2024. TECHNIQUE: Coronal T1 and fat-suppressed proton density, sagittal proton density and fat-suppressed proton density, and axial fat suppressed T2 weighted MR images of the left knee were obtained. FINDINGS: Bone marrow: Bone marrow signal intensity is normal. Joint effusion: There is no joint effusion. Torrez's cyst: There is no Torrez's cyst. Articular cartilage: Intact Muscles/soft tissues: The visualized muscles demonstrate normal signal intensity. Anterior cruciate ligament: Intact Posterior cruciate ligament: Intact Medial collateral ligament: Intact Lateral collateral ligament: Intact Medial meniscus: Intact Lateral meniscus: Intact Flexor mechanism: The popliteus, gastrocnemius, and hamstring tendons are intact. Quadriceps tendon: Intact Patellar tendon: Intact Patellar retinacula: Intact MR/MR knee LT wo con IMPRESSION: Unremarkable MRI of the left knee. Electronically signed by: Crsitobal Burns MD 12/14/2024 07:11 AM EDT
--- OUTSIDE RECORDS SUMMARY | 2024-12-13 20:03 | XMS_ITS | Clinical Summary ---
Author Organization [facility] Address [address] [place] [address] Care Team Providers Care Career Placement Services Counselor Name Role Phone Barbara Cabrera MD Primary Care Provider [phone] Social History Tobacco Use Types Packs/Day Years [...] age to complete this topic Care Teams Career Placement Services Counselor Relationship Specialty Start Date End Date Barbara Cabrera MD [address] [place] [address] PCP - General Internal Medicine 02/08/19
--- OUTSIDE RECORDS SUMMARY | 2024-12-13 20:03 | XMS_ITS | Clinical Summary ---
Author Organization [facility] Address [address] [address] Phone Care Team Providers Care Engineer Operations And Maintenance Name Role Phone Soledad Ocasio MD Primary Care Provider [phone] Allergies No known active allergies Medications * [...] Orders Only [facility] [address] [place] [phone] Jigar Bello MD Hypertension 11/05/2024 8:30 AM EDT Office Visit [facility] [address] [phone] Jigar Bello MD Hypertension (Primary Dx); Obesity, [...] Clinical Support [facility] P. [address] [address] 12/17/2024 9:15 AM EDT Office Visit [facility]opher [address] [phone] Jigar Bello MD [address] [phone] Health Maintenance Due Date Last Done Comments [...] EDT) Creatinine, Ur 199.9 Not Estab. mg/dL [facility] Albumin, Urine 27.2 Not Estab. ug/mL [facility] Albumin/Creatin ine Ratio 14 0 - 29 mg/g creat [facility] Comment: Normal: 0 - 29 Moderately increased: 30 - 300 Severely increased: >300 Urine Urine specimen obtained by clean catch procedure / Unknown 11/05/2024 9:54 AM EDT 11/05/2024 Jigar Bello MD LAB URINE ORDERABLES Final Resul t Performing Organization Address City/[facility]/ZIP Co de Phone Number [facility] [address] [place] [address] * Renin Activity, Plasma (11/05/2024 9:42 AM EDT) Renin Activity 0.239 0.167 - 5.380 ng/mL/hr [facility] Blood Venous blood / Unknown 11/05/2024 9:42 AM EDT 11/05/2024 Narrative [facility] - 11/15/2024 12:06 PM EDT Test(s) 634009-Cesfn Activity, Plasma was developed and its performance characteristics determined by [facility]. It has not been cleared or approved by the Food and Drug Administration. Jigar Bello MD LAB BLOOD ORDERABLES Final Resul t Performing Organization Address City/[facility]/ZIP Co de Phone Number [facility] [place] [address] * Metanephrines,Fractionated, Plasma Free (11/05/2024 9:42 AM EDT) Normetanephrin e, Pl <25.0 0.0 - 210.1 pg/mL [facility] Metanephrine, Plasma <25.0 0.0 - 88.0 pg/mL [facility] Blood Venous blood / Unknown 11/05/2024 9:42 AM EDT 11/05/2024 Narrative [facility] - 11/15/2024 12:06 PM EDT Test(s) 384627-Wumwcgfhakboxte, Pl; 310682-Idcjboadcnrc, Pl was developed and its performance characteristics determined by [facility]. It has not been cleared or approved by the Food and Drug Administration. Jigar Bello MD LAB BLOOD ORDERABLES Final Resul t Performing Organization Address [facility] Co de Phone Number [facility] [address] [place] [address] * Aldosterone (11/05/2024 9:42 AM EDT) [facility] Aldosterone 4.1 0.0 - 30.0 ng/dL [facility] Blood Venous blood / Unknown 11/05/2024 9:42 AM EDT 11/05/2024 Narrative [facility] - 11/15/2024 12:06 PM EDT Test(s) 656538-Ilixewxeanq was developed and its performance characteristics determined by [facility]. It has not been cleared or approved by the Food and Drug Administration. Jigar Bello MD LAB BLOOD ORDERABLES Final Resul t Performing Organization Address City/[facility]/ZIP Co de Phone Number [facility] [address] [place] [address] from Last 3 Months Insurance Medicaid [place] Care Teams Engineer Operations And Maintenance Relationship Specialty Start Date End Date Soledad Ocasio MD [address] [place] [address] PCP - General Family Medicine 09/21/24
== END 2024-12-13 20:02 | disposition home or self-care (01) ==
LOC: HO.MRI 20:01
PROVIDERS: PCP Family Medicine; Visit Provider Orthopaedic Surgery
DX: S83.242A Other tear of medial meniscus, current injury, left knee, initial encounter (principal)
CPT/HCPCS: 73721

== ENCOUNTER → 2024-12-13 20:04 | Outpatient (BNV) | payer MEDICAID, SELFPAY | PROVIDERS: PCP Family Medicine; Visit Provider Radiology Diagnostic Radiology | DX: M25.562 Pain in left knee (principal) | CPT/HCPCS: 73721 ==

== ENCOUNTER 2025-01-12 12:30 | Outpatient (AMB) | payer MEDICAID, SELFPAY ==
--- NOTE | 2025-01-12 12:42 | A.OFFVIS_ITS ---
Intake Visit Reasons: OV- Left Knee MRI Review, 12/13/24. Intake Note: Qing is a 39 year old female who presents with complaints of bilateral knee pains, left greater than right. She describes her left knee pain as sharp in nature. She states that her symptoms have gotten worse over the last year in spite of continued non operative treatments. The patient states that she has had cortisone injections given into her left knee in the past by a pain management group at another facility. She got minimal relief from the cortisone injections. She has not had a viscosupplementation injection. She has failed the last 3 months of conservative treatment which has included Tylenol, anti- inflammatory medicines, physical therapy exercises and a home exercise program. At this point her left knee pain is interfering with her activities of daily living and her ability to sleep well through the night. Allergies acetaminophen (From Percocet) Allergy (Unknown, Verified 01/12/25 12:45) Hives oxycodone (From Percocet) Allergy (Unknown, Verified 01/12/25 12:45) Hives Medication List - Last Reconciled 01/12/25 by Jeff Romo MD albuterol sulfate 90 mcg/actuation (Ventolin HFA) 2 puffs inhalation Q6H PRN amlodipine 10 mg PO DAILY aripiprazole 15 mg PO DAILY atenolol 50 mg PO DAILY rtyidpoxgl-cqrbasazey-ioe-cod [id number] mg 2 caps PO Q4H PRN chlorthalidone 25 mg PO DAILY divalproex 500 mg PO BID duloxetine 20 mg PO BID famotidine 20 mg PO DAILY ferrous gluconate 324 mg PO DAILY fluticasone propionate 50 mcg/actuation (Allergy Relief (fluticasone)) 1 spray intranasal DAILY gabapentin 300 mg PO BID 30 days hydralazine 10 mg PO TID levonorgestrel (Liletta) intrauterine lidocaine 5% 1 patch topical DAILY losartan 100 mg PO DAILY rizatriptan take 1 tab at onset of headache; if no relief may repeat 1 tab after at least 2 hrs; max = 3 tabs/24 hr PO tirzepatide (weight loss) (Zepbound) 7.5 mg subcut QWEEK trazodone 150 mg PO BEDTIME PRN PFSH Medical History (Updated 01/12/25 @ 13:09 by Jeff Romo MD) Morbid obesity with BMI of 40.0-44.9, adult Chronic pain syndrome Polyarthralgia Anemia Hypertension Migraine Social History Patient Tobacco Use Status: Never used Tobacco Physical Exam Const Other: Well-nourished well-developed very friendly female awake alert and oriented x3 in no acute distress Extrem Other: Left knee examination shows a minimal effusion, mild crepitus with range of motion, no instability Results Reviewed Results Reviewed: MRI of the patient's left knee shows mild diffuse degenerative changes, no evidence of meniscus or ligamentous injury Assessment & Plan Assessment & Plan (1) Bilateral knee pain: Code(s): M25.561 - Pain in right knee; M25.562 - Pain in left knee Category: Medical (2) Osteoarthritis of left knee: Code(s): M17.12 - Unilateral primary osteoarthritis, left knee Category: Medical Plan Ms. Ackerman presents with left knee pain due to osteoarthritis. I had a lengthy discussion with the patient regarding the treatment options. I will see if her insurance company will cover a viscosupplementation injection, such as Durolane, for her left knee. I will see her back once the injection is available. I will also refer her to our Rheumatology Department here at [facility] for further evaluation of her polyarthralgia. Feel free to call me at any time should questions regarding her orthopedic management arise. I spent 21 minutes in reviewing the patient's records and imaging studies, seeing the patient and documenting in the medical record. Orders: Referrals Rheumatology Referral M25.50 - Pain in unspecified joint, M25.561 - Pain in right knee, M25.562 - Pain in left knee Coding Level of Care Code Est Pt Level 3 (06683) Complex EM visit Add On G2211 Diagnoses Bilateral knee pain M25.561; M25.562 Osteoarthritis of left knee M17.12
--- OUTSIDE RECORDS SUMMARY | 2025-01-12 16:00 | XMS_ITS | Encounter Summary ---
Author Organization [employer] Address [address] [facility] 7t [place] [address] Care Team Providers Care Correctional Officer Chief Name Role Phone Soledad Ocasio MD Primary Care Provider [phone] Nicole Ramsey PharmD Unavailable [phone] Reason for Visit * Reason Comments Med Refill Encounter Details Date Type Department Care Team ([facility] st Contact Info) Description 09/22/2024 Refill [facility] CHC MED & PEDS [address] [place], [place] [phone] Fahad Agrawal MD 505 [place] [address] Low back pain at multiple sites Social History Tobacco Use Types Packs/Day Years [...] Care Team (Late st Contact Info) Description 01/19/2025 11:30 AM EDT Office Visit [facility] MED & PEDS [address] [place] [address] Soledad Ocasio MD 505 [place] [address] documented as of this encounter Visit Diagnoses Diagnosis Low back pain at multiple sites documented in this encounter Additional Health Concerns Assessment Noted Time PHQ-9 Depression Total Score: 0 06/17/19 25 1:39 PM EST documented as of this encounter Care Teams Correctional Officer Chief Relationship Specialty Start Date End Date Soledad Ocasio MD [address] [place] [address] PCP - General Family Medicine 08/07/22 Nicole Ramsey PharmD [address] [place] [address] Pharmacist Internal Medicine 07/07/24 11/06/24 documented as of this encounter
--- OUTSIDE RECORDS SUMMARY | 2025-01-12 16:00 | XMS_ITS | Encounter Summary ---
Author Organization [facility] Address [address] [facility] 7t [place] [address] Care Team Providers Care Senior Front End Engineer Name Role Phone Soledad Ocasio MD Primary Care Provider [phone] Nicole Ramsey PharmD Unavailable [phone] Encounter Details Date Type Department Care Team (Late st Contact Info) Description 04/11/2022 Orders Only [facility] MED & PEDS [address] [place] [address] Katie Aguilar LPN Social History Tobacco Use [...] Description 01/19/2025 11:30 AM EDT Office Visit [facility] MED & PEDS [address] [place] [address] Soledad Ocasio MD 505 [place] [address] documented as of this encounter Visit Diagnoses Not on filedocumented in this encounter Care Teams Senior Front End Engineer Relationship Specialty Start Date End Date Soledad Ocasio MD [address] [place] [address] PCP - General Family Medicine 08/07/22 Ramsey, Janis Rivera [address] [place] [address] Pharmacist Internal Medicine 07/07/24 11/06/24 documented as of this encounter
--- OUTSIDE RECORDS SUMMARY | 2025-01-12 16:00 | XMS_ITS | Encounter Summary ---
Author Organization [employer] Address 75 [facility] 7t [place] [address] Care Team Providers Care House Steward/Stewardess Name Role Phone Soledad Ocasio MD Primary Care Provider [phone] Encounter Details Date Type Department Care Team (Late st Contact Info) Description 12/22/2024 Orders Only [facility] [address] [place] [address] Provider, MD Ramona Social History Tobacco Use Types Packs/Day Years [...] Upcoming Encounters Date Type Department Care Team ([facility] st Contact Info) Description 01/19/2025 11:30 AM EDT Office Visit [facility] CHC MED & PEDS [address] [place] [address] Soledad Ocasio MD 505 [place] [address] documented as of this encounter Procedures Procedure Name Priority Date/Time Associated Diagnosis Comments VASC US ABDOMINAL/PELVIC DUPLEX COMPLETE Routine 12/21/2024 11:46 AM EDT documented in this encounter Results * VASC US Abdominal pelvic Duplex Complete (12/21/2024 11:46 AM EDT) us Historical Provider CV VASCULAR PROCEDURES Fi nal Result documented in this encounter Visit Diagnoses Not on filedocumented in this encounter Additional Health Concerns Assessment Noted Time PHQ-9 Depression Total Score: 0 06/17/19 25 1:39 PM EST documented as of this encounter Care Teams House Steward/Stewardess Relationship Specialty Start Date End Date Soledad Ocasio MD [address] [place] [address] PCP - General Family Medicine 08/07/22 documented as of this encounter
--- OUTSIDE RECORDS SUMMARY | 2025-01-12 16:00 | XMS_ITS | Encounter Summary ---
Author Organization [employer] Address [address] [facility] [address] 7[address] [place] [address] Care Team Providers Care Visual Merchandising Specialist Name Role Phone Soledad Ocasio MD Primary Care Provider [phone] Nicole Ramsey PharmD Unavailable [phone] Encounter Details Date Type Department Care Team ([facility] st Contact Info) Description 09/15/2023 Telephone [facility] CHC MED & PEDS [address] [place], [place] [phone] Soledad Ocasio MD [address] [place], [place] [phone] Social History Tobacco Use Types Packs/Day Years [...] PM EDT Tc to pt who stated [facility] is telling her to get Hep B titers. However, pt already had Hep B titers done on 09/09 which showed she was immune to Hep B. Pt brought these results to [facility] but they still insisted on pt getting Hep B titers. Provided pt with our office number for [facility] to call us. Pt verbalized understanding and agreement with plan. * Telephone Encounter - Ruth Smith - 09/15/2023 2:40 PM EDT Tc from pt requesting a call back to discuss immunizations. documented in this encounter Plan of Treatment Upcoming Encounters Date Type Department Care Team ([facility] st Contact Info) Description 01/19/2025 11:30 AM EDT Office Visit [facility] MED & PEDS [address] [place] [address] Soledad Ocasio MD [address] [place] [address] documented as of this encounter Visit Diagnoses Not on filedocumented in this encounter Additional Health Concerns Assessment Noted Time PHQ-9 Depression Total Score: 17 023 11:47 AM EDT documented as of this encounter Care Teams Visual Merchandising Specialist Relationship Specialty Start Date End Date Soledad Ocasio MD [address] [place] [address] PCP - General Family Medicine 08/07/22 Nicole Ramsey, Janis [address] [place] [address] Pharmacist Internal Medicine 07/07/24 11/06/24 documented as of this encounter
--- OUTSIDE RECORDS SUMMARY | 2025-01-12 16:00 | XMS_ITS | Encounter Summary ---
Author Organization [employer] Address [address] [facility] [address] 7t [place] [address] Care Team Providers Care Job Setter Honing Name Role Phone Soledad Ocasio MD Primary Care Provider [phone] Nicole Ramsey PharmD Unavailable [phone] Reason for Visit * Reason Onset Date Comments Nurse Triage 04/13/2024 Encounter Details Date Type Department Care Team ([facility] st Contact Info) Description 04/13/2024 Telephone [facility] CHC MED & PEDS [address] [place], [place] [phone] Soledad Ocasio MD [address] [place] [address] Nurse Triage Social History Tobacco Use Types [...] AM EDT documented as of this encounter Functional Status * Over the past 2 weeks, how often have you been bothered by any of the following problems? Question Answer Date of Assessment Author Patient Health Questionnaire-2 Score 6 03/28 9:50 AM Azul Jean [place] * Little interest or pleasure in doing things Answer Date of Assessment Author Nearly every day 04/15/2024 9:50 AM Azul Jean [place] * Feeling down, depressed, or hopeless Answer Date of Assessment Author Nearly every day 04/15/2024 9:50 AM Azul Jean [place] * Trouble falling or staying asleep, or sleeping too much Answer Date of Assessment Author Nearly every day 04/15/2024 9:50 AM Azul Jean [place] * Feeling tired or having little energy Answer Date of Assessment Author Nearly every day 04/15/2024 9:50 AM Azul Jean [place] * Poor appetite or overeating Answer Date of Assessment Author More than half the days 04/15/2024 9:50 AM Azul Oakes [place] * Feeling bad about yourself - or that you are a failure or have let yourself or your family down Answer Date of Assessment Author More than half the days 04/15/2024 9:50 AM Azul Oakes [place] * Moving or speaking so slowly that other people could have noticed? Or the opposite - being so fidgety or restless that you have been moving around a lot more than usual. Answer Date of Assessment Author Several days 04/15/2024 9:50 AM Azul Jean [place] * Thoughts that you would be better off or hurting yourself in some way Answer Date of Assessment Author Not at all 04/15/2024 9:50 AM Azul Jena [place] documented as of this encounter Miscellaneous Notes * Telephone Encounter - Pilar Guevara LPN - 04/13/2024 2:02 PM EST Triage call returned to patient who is very upset, crying. Patient is having ongoing back pain thatradiates into both legs is unable to control pain has been [facility] the [facility] readings pending [facility] visit. Patient also given ASK/Dr.Beauzile francist as next available to schedule for evaluation [...] Description 01/19/2025 11:30 AM EDT Office Visit [facility] MED & PEDS [address] [place] [address] Soledad Ocasio MD [address] [place] [address] documented as of this encounter Visit Diagnoses Not on filedocumented in this encounter Additional Health Concerns Assessment Noted Time PHQ-9 Depression Total Score: 17 023 11:47 AM EDT documented as of this encounter Care Teams Job Setter Honing Relationship Specialty Start Date End Date Soledad Ocasio MD [address] [place] [address] PCP - General Family Medicine 08/07/22 Nicole Ramsey PharmD [address] [place] [address] Pharmacist Internal Medicine 07/07/24 11/06/24 documented as of this encounter
--- OUTSIDE RECORDS SUMMARY | 2025-01-12 16:00 | XMS_ITS | Encounter Summary ---
Author Organization [employer] Address [address] [facility] [address] 7t [place] [address] Care Team Providers Care Material Damage Adjuster Name Role Phone Soledad Ocasio MD Primary Care Provider [phone] Reason for Visit * Reason Comments Med Refill Encounter Details Date Type Department Care Team ([facility] st Contact Info) Description 12/15/2024 Refill [facility] CHC MED & PEDS [address] [place], [place] [phone] Soledad Ocasio MD [address] [place] [address] Hypertension, unspecified type Social History Tobacco Use Types Packs/Day Years [...] Description 01/19/2025 11:30 AM EDT Office Visit [facility] MED & PEDS [address] [place] [address] Soledad Ocasio MD [address] [place] [address] documented as of this encounter Visit Diagnoses Diagnosis Hypertension, unspecified type documented in this encounter Additional Health Concerns Assessment Noted Time PHQ-9 Depression Total Score: 0 06/17/19 25 1:39 PM EST documented as of this encounter Care Teams Material Damage Adjuster Relationship Specialty Start Date End Date Soledad Ocasio MD [address] [place] [address] PCP - General Family Medicine 08/07/22 documented as of this encounter
--- OUTSIDE RECORDS SUMMARY | 2025-01-12 16:00 | XMS_ITS | Encounter Summary ---
Author Organization [employer] Address [address] [facility] [address] 7t [place] [address] Care Team Providers Care Office Clinician Name Role Phone Soledad Ocasio MD Primary Care Provider [phone] Nicole Ramsey PharmD Unavailable [phone] Encounter Details Date Type Department Care Team (Late st Contact Info) Description 07/07/2024 Orders Only [facility] MEDICINE [address] [place], [place] [phone] Sona Mccarthy MD [address] [place], [place] [phone] Social History Tobacco Use Types Packs/Day Years [...] Description 01/19/2025 11:30 AM EDT Office Visit [facility] MED & PEDS [address] [place] [address] Soledad Ocasio MD 505 [place] [address] documented as of this encounter Visit Diagnoses Not on filedocumented in this encounter Additional Health Concerns Assessment Noted Time PHQ-9 Depression Total Score: 0 06/17/19 1:39 PM EST documented as of this encounter Care Teams Office Clinician Relationship Specialty Start Date End Date Soledad Ocasio MD [address] [place] [address] PCP - General Family Medicine 08/07/22 Nicole Ramsey PharmD [address] [place] [address] Pharmacist Internal Medicine 07/07/24 11/06/24 documented as of this encounter
--- OUTSIDE RECORDS SUMMARY | 2025-01-12 16:00 | XMS_ITS | Encounter Summary ---
Author Organization [employer] Address [address] [facility] [address] 7t [place] [address] Care Team Providers Care Painting Instructor Name Role Phone Soledad Ocasio MD Primary Care Provider [phone] Nicole Ramsey PharmD Unavailable [phone] Reason for Visit * Reason Onset Date Comments Appointment Request 10/19/2024 Encounter Details Date Type Department Care Team ([facility] Contact Info) Description 10/19/[address] [facility] MEDICINE [address] [place] [address] Soledad Ocasio MD [address] [place] [address] Appointment Request Social History Tobacco Use Types Packs/Day Years [...] encounter Miscellaneous Notes * Telephone Encounter - Kayla Briggs - 10/19/2024 11:22 AM EDT Tc from pt requesting r/s 10/19 appointment with Nicole Ramsey. [phone] documented in this encounter Plan of Treatment Upcoming Encounters Date Type Department Care Team (Late st Contact Info) Description 01/19/2025 11:30 AM EDT Office Visit [facility] MED & PEDS [address] [place] [address] Soledad Ocasio MD [address] [place] [address] documented as of this encounter Visit Diagnoses Not on filedocumented in this encounter Additional Health Concerns Assessment Noted Time PHQ-9 Depression Total Score: 0 06/17/19 25 1:39 PM EST documented as of this encounter Care Teams Painting Instructor Relationship Specialty Start Date End Date Soledad Ocasio MD [address] [place] [address] PCP - General Family Medicine 08/07/22 Nicole Ramsey, Janis [address] [place] [address] [place] [address] Pharmacist Internal Medicine 07/07/24 11/06/24 documented as of this encounter
--- OUTSIDE RECORDS SUMMARY | 2025-01-12 16:00 | XMS_ITS | Encounter Summary ---
Author Organization [employer] Address [address] [facility] [address] 7t [place] [address] Care Team Providers Care Breast Worker Name Role Phone Soledad Ocasio MD Primary Care Provider [phone] Nicole Ramsey PharmD Unavailable [phone] Reason for Visit * Reason Comments Med Refill Encounter Details Date Type Department Care Team ([facility] st Contact Info) Description 05/28/2024 Refill [facility] CHC MED & PEDS [address] [place], [place] [phone] Soledad Ocasio MD [address] [place] [address] Mood disorder (CMS/HCC) Social History Tobacco Use [...] Upcoming Encounters Date Type Department Care Team ([facility] st Contact Info) Description 01/19/2025 11:30 AM EDT Office Visit [facility] MED & PEDS [address] [place] [address] Soledad Ocasio MD [address] [place] [address] documented as of this encounter Visit Diagnoses Diagnosis Mood disorder (CMS/HCC) Unspecified episodic mood disorder documented in this encounter Additional Health Concerns Assessment Noted Time PHQ-9 Depression Total Score: 15 025 9:18 AM EST documented as of this encounter Care Teams Breast Worker Relationship Specialty Start Date End Date Soledad Ocasio MD [address] [place] [address] PCP - General Family Medicine 08/07/22 Nicole Ramsey PharmD [address] [place] [address] Pharmacist Internal Medicine 07/07/24 11/06/24 documented as of this encounter
--- OUTSIDE RECORDS SUMMARY | 2025-01-12 16:00 | XMS_ITS | Encounter Summary ---
Author Organization [employer] Address [address] [facility] [address] 7t [place] [address] Care Team Providers Care Manager Of Production Name Role Phone Soledad Ocasio MD Primary Care Provider [phone] Nicole Ramsey PharmD Unavailable [phone] Reason for Visit * Reason Onset Date Comments Appointment Request 10/05/2024 Encounter Details Date Type Department Care Team ([facility] st Contact Info) Description 10/05/2024 Telephone [facility] MEDICINE [address] [place] [address] Soledad Ocasio MD [address] [place] [address] Appointment Request Social History Tobacco Use Types [...] encounter Miscellaneous Notes * Telephone Encounter - Emily Aponte - 10/05/2024 10:27 AM EDT Tc from pt requesting a callback to reschedule appointment that was scheduled for today 10/05. Please return call [phone] documented in this encounter Plan of Treatment Upcoming Encounters Date Type Department Care Team (Late st Contact Info) Description 01/19/2025 11:30 AM EDT Office Visit [facility] MED & PEDS 505 [place] [address] Soledad Ocasio MD [address] [place] [address] documented as of this encounter Visit Diagnoses Not on filedocumented in this encounter Additional Health Concerns Assessment Noted Time PHQ-9 Depression Total Score: 0 06/17/19 25 1:39 PM EST documented as of this encounter Care Teams Manager Of Production Relationship Specialty Start Date End Date Soledad Ocasio MD [address] [place] [address] PCP - General Family Medicine 08/07/22 Nicole Ramsey, Janis [address] [place] [address] Pharmacist Internal Medicine 07/07/24 11/06/24 documented as of this encounter
--- OUTSIDE RECORDS SUMMARY | 2025-01-12 16:00 | XMS_ITS | Encounter Summary ---
Author Organization [employer] Address [address] [facility] 7 [place] [address] Care Team Providers Care Petroleum Products District Supervisor Name Role Phone Soledad Ocasio MD Primary Care Provider [phone] Nicole Ramsey PharmD Unavailable [phone] Encounter Details Date Type Department Care Team ([facility] Contact Info) Description 05/26/2022 Orders Only [facility] MEDICINE [address] [place], [place] [phone] Billy Muñiz MD 505 [place], [place] [phone] Major depressive disorder, remission status unspecified, unspecified [...] Department Care Team (Late Contact Info) Description 01/19/2025 11:30 AM EDT Office Visit [facility] CHC MED & PEDS [address] [place], [place] [phone] Soledad Ocasio MD [address] [place], [place] [phone] documented as of this encounter Visit Diagnoses Diagnosis Major depressive disorder, remission status unspecified, unspecified whether recurrent- Primary documented in this encounter Care Teams Petroleum Products District Supervisor Relationship Specialty Start Date End Date Soledad Ocasio MD [address] [place] [address] PCP - General Family Medicine 08/07/22 Nicole Ramsey PharmD [address] [place] [address] Pharmacist Internal Medicine 07/07/24 11/06/24 documented as of this encounter
--- OUTSIDE RECORDS SUMMARY | 2025-01-12 16:00 | XMS_ITS | Encounter Summary ---
Author Organization [employer] Address [address] [facility] [address] 7t [place] [address] Care Team Providers Care Installer Helper Name Role Phone Soledad Ocasio MD Primary Care Provider [phone] Nicole Ramsey PharmD Unavailable [phone] Encounter Details Date Type Department Care Team (Late Contact Info) Description 11/08/2022 Orders Only [facility] CHC MED & PEDS [address] [place], [place] [phone] Gissel Holt MD [address] [place], [place] [phone] Social History Tobacco Use Types Packs/Day Years [...] Description 01/19/2025 11:30 AM EDT Office Visit [facility] CHC MED & PEDS [address] [place], [place] [phone] Soledad Ocasio MD [address] [place] [address] documented as of this encounter Visit Diagnoses Not on filedocumented in this encounter Additional Health Concerns Assessment Noted Time PHQ-9 Depression Total Score: 17 023 11:47 AM EDT documented as of this encounter Care Teams Installer Helper Relationship Specialty Start Date End Date Soledad Ocasio MD [address] [place] [address] PCP - General Family Medicine 08/07/22 Nicole Ramsey PharmD [address] [place] [address] Pharmacist Internal Medicine 07/07/24 11/06/24 documented as of this encounter
--- OUTSIDE RECORDS SUMMARY | 2025-01-12 16:01 | XMS_ITS | Clinical Summary ---
Author Organization [employer] Address [address] [facility] [address] [place] [address] Care Team Providers Care Nurse Receptionist Name Role Phone Soledad Ocasio MD Primary Care Provider [phone] Allergies No known active allergies Medications * [...] MCG/DAY intrauterine device by Intrauterine route. Active lidocaine (Lidoderm) 5 % patchIndication s:Low back pain at multiple sites Apply 1 patch topically Once per day. Remove & discard patch within 12 hours or as directed by MD. 30 patch 3 024 Active DULoxetine (Cymbalta) [address] capsuleIndicati ons:Low back pain at multiple sites Take 1 capsule (20 mg) by mouth 2 times daily. Do not crush or chew. 60 capsule 11 025 2025 Active atenolol (Tenormin) 50 MG tabletIndicatio ns:Primary hypertension Take 1 tablet (50 mg) by mouth Once per day. 30 tablet 11 025 2025 Active Alcohol Swabs (Alcohol Prep) 70 % [...] Once per day. 90 tablet 3 Active traZODone (Desyrel) 150 MG tabletIndicatio ns:Depression with anxiety Take 1 tablet (150 mg) by mouth if needed at bedtime for sleep. 30 tablet 1 Active divalproex (Depakote) 500 MG EC tabletIndicatio ns:Mood disorder (CMS/HCC) Take 1 tab by mouth in the morning and 2 tabs in the evening. Do not crush, chew, or split. 90 tablet 1 Active ARIPiprazole (Abilify) 10 MG tabletIndicatio ns:Mood disorder (CMS/HCC) Take 1.5 tablets (15 mg) by mouth Once per day. 45 tablet 1 Active hydrALAZINE (Apresoline) 25 MG tablet Take 1 tablet (25 mg) by mouth 3 times daily. 270 tablet Active escitalopram (Lexapro) 10 MG tablet Take 1 tablet by mouth Once per day. Active ferrous sulfate 325 (65 Fe) MG EC tablet Active losartan (Cozaar) 100 MG tabletIndicatio ns:Hypertension , unspecified type Take 1 tablet (100 mg) by mouth Once per day. 90 tablet 1 Active rizatriptan (Maxalt) 10 MG tabletIndicatio ns:Intractable chronic migraine with aura and without status migrainosus Take 1 tablet (10 mg) by mouth 1 (one) time if needed for migraine. May repeat in 2 hours if unresolved. Do not exceed 30 mg in 24 hours. 9 tablet 2 Active ondansetron (Zofran) 4 MG tablet Take 1 tablet (4 mg) by mouth every 8 (eight) hours if needed for nausea or vomiting. 40 tablet Active gabapentin (Neurontin) 300 MG capsuleIndicati ons:Fibromyalgi a Take 1 capsule (300 mg) by mouth 2 times daily. 60 capsule 2 Active gabapentin (Neurontin) 600 MG tabletIndicatio ns:Fibromyalgia Take 1 tablet (600 mg) by mouth at bedtime. 30 tablet 2 Active Tirzepatide-Awais ght Management (Zepbound) 7.5 MG/0.5ML solution auto-injector Inject 0.5 mL (7.5 mg) under the skin 1 (one) time per week. INJECT ONE PEN (=7.5 MG) SUBCUTANEOUSLY ONCE A WEEK 2 mL 3 Active chlorthalidone (Hygroton) 25 MG tablet TAKE 1 TABLET BY MOUTH DAILY 90 tablet 1 025 Active chlorthalidone (Hygroton) 25 MG tablet Take 1 tablet (25 mg) by mouth Once per day. 90 tablet 1 025 2024 Discontinued(R eorder (will not trigger notification to Pharmacy)) Zepbound 7.5 MG/0.5ML solution auto-injector ADMINISTER 7.5 MG UNDER THE SKIN 1 TIME EVERY WEEK 025 2024 Discontinued(R eorder (will not trigger notification to Pharmacy)) Active Problems Patient Care Coordination No te Formatting of this note migh t be different from the original. C3/CM Debbie aMuricio RN Problem Noted Date Diagnosed Date Resistant hypertension 09/16/2024 Assessment & Plan (09/16/2024 3:28 PM EDT): Patient has a history of resistant hypertension, currently on multiple antihypertensive medications including losartan 100 mg, chlorthalidone 25 mg, atenolol 50 mg, and amlodipine. Blood pressure remains elevated despite medication regimen. Patient reports fluid retention post-delivery. Further workup for resistant hypertension is warranted. Plan: - Add hydralazine - Refer to nephrology for evaluation of resistant hypertension - Order workup for resistant hypertension - Follow up in 6-8 weeks Primary hypertension 04/30/2024 Assessment & Plan (04/30/2024 10:32 AM EST): Ordering lab work for further evaluation. DC hydrochlorothiazide and begin chlorthalidone. Follow up in 4 months. Relevant Medications Chlorthalidone (Hygroton) 25 mg tablet Restless leg syndrome 04/30/2024 Assessment & Plan (04/30/2024 10:30 AM EST): Ordering lab work for further evaluation. Diffuse body aches 04/15/2024 Assessment & Plan (09/16/2024 3:31 PM EDT): Patient reports diffuse body aches that worsened after delivery, with pain in various parts of the body including joints, nerves, and back. Symptoms include pressure in the back, numbness after walking, and crampy, tight sensations. Patient expresses concern about possible fibromyalgia due to family history. Previous treatments with Tylenol and tramadol have been ineffective. Current symptoms suggest a chronic pain condition, possibly fibromyalgia or an autoimmune disorder. Plan: - Refer to bobbin painter for evaluation and treatment - Autoimmune labs in March non contributory - consider gabapentin or lyrica, tramadol was not helpful for pain - Continue Cymbalta for pain management - Educate patient on iliotibial band dysfunction as a possible cause for left knee, right hip, and right shoulder pain Assessment & Plan (04/15/2024 11:03 AM EST): Ordering lab work for further evaluation. Chronic pelvic pain in female 04/15/2024 Assessment & Plan (04/15/2024 11:03 AM EST): Ordering lab work for further evaluation. Physical exam, annual 09/16/2023 Assessment & Plan (09/16/2024 3:32 PM EDT): 39 y.o. female here for annual physical examination Reviewed BMI and BP with patient. Nutritional recommendations: Recommended to decrease soda and sugary beverage consumption. Recommended at least 20 g per meal of protein to assist with satiety. Exercise recommendations: Recommended at least 150 min/week of moderate intensity exercise. BH screen done and reviewed Care Gaps reviewed IZ reviewed and discussed w/ patient Updated/reviewed PMH, Surghx, Family Hx & Social Hx Assessment & Plan (09/16/2023 11:55 AM EDT): [...] will check labs and schedule apt with [facility] Derm clinic. Diarrhea 01/28/2023 Assessment & Plan (01/28/2023 4:56 PM [...] of change PLAN: 1. Follow up with [facility]: Recommended for follow-up: patient will contact to schedule follow up 2. Patient goal is increase coping mechanisms 3. Behavioral Recommendations a. Deep breathing b. Task prioritizing c. Contacting the accomodation department at [facility] Assessment & Plan (10/28/2022 1:27 PM [...] for treatment. PLAN: 1. Follow up with [facility]: Recommended for follow-up: 10/24/22 2. Patient goal [...] benefit from further evaluation form an MRI. Low grade squamous intraepit helial lesion (LGSIL) on Papanicolaou smear of cervix 09/02/2022 Asthma 09/02/2022 Depression with anxiety 09/02/2022 Assessment & Plan (09/02/2022 11:37 AM EDT): Patient with depression symptoms associated with anxiety. Will refer to Behavioral services for further evaluation. Gestational diabetes 09/02/2022 Class 2 obesity with body ma ss index (BMI) of 36.0 to 36.9 in adult 09/02/2022 Assessment & Plan (09/16/2024 3:34 PM EDT): Patient currently on pharmacotherapy to assist with management of her weight. Starting weight: 214 lbs Current weight: 200 lbs 12.8 oz Will incr zepbound to 7.5 mg Review continue lifestyle modifications. Patient was titrated up to treatment dose. Tolerated titration well. . Reviewed mechanism of action with patient. Discussed side effects with patient: nausea, vomiting, diarrhea & risk of pancreatitis. No contraindications identified: , hx of pancreatitis, hx of medullary thyroid cancer or MEN 2. Discussed calorie deficit, recommended reduction of 20-30% of maintenance calories; triple drum operator referral offered. Recommended to decrease soda and sugary beverage consumption. Recommended at least 20 g per meal of protein to assist with satiety. Recommended at least 150 min/week of moderate intensity exercise. Assessment & Plan (04/30/2024 10:33 AM EST): Begin Zepbound and follow up in 4 months. Assessment & Plan (01/28/2023 4:57 PM EDT): Discussed calorie deficit, recommended reduction of 20-30% of maintenance calories; triple drum operator referral offered. Recommended to decrease soda and [...] hyperactiv ity disorder (ADHD), combined type 09/02/2022 Migraine 05/15/2018 Assessment & Plan (09/16/2024 3:29 PM EDT): Patient reports migraines occurring three times per week, with aura (white dots). Previous prophylactic therapies, including topiramate and propranolol, have been ineffective. Patient has not shown improvement with various treatments, indicating refractory migraines. Plan: - Submit new referral to neurology for migraine management - Consider Nurtec or Botox as potential treatment options (to be discussed with neurologist) - Continue current migraine medications Assessment & Plan (04/15/2024 11:06 AM EST): [...] AM EST): Started to be seen by senior mortgage loan processor in office, he continues her mood stabilizer & SGA and added trazodone to regimen, next appt in 2 weeks. Followup per psych recs. Future Appointments Date Time Provider Department Center 04/30/2024 10:45 AM Soledad Ocasio MD [facility] 05/13/2024 4:00 PM Osito Guidry, [facility] 05/20/2024 9:00 AM Fahad Agrawal MD [facility] Assessment & Plan (04/15/2024 11:07 AM EST): [...] home. Will follow up in 1 month. Abnormal cervical Papanicolaou smear 05/15/2018 12/03/2024 Encounters * This document contains information received from the source organization and may not represent a complete record from that organization. Date Type Department Care Team Description 12/22/2024 Orders Only [facility] Information Management [address] [place] [phone] ProviderRamona MD 12/15/2024 Refill [facility] [address] [place], [place] [phone] Soledad Ocasio MD Hypertension, unspecified type 12/15/2024 Refill [facility] [address] [place], [place] [phone] Soledad Ocasio MD 12/15/2024 Refill [facility] [address] [place], [place] [phone] Soledad Ocasio MD 12/13/2024 Orders Only [facility] External Provider, [facility] 12/03/2024 1:45 PM EDT Office Visit [facility] [address] [place] [address] Soledad Ocasio MD Fibromyalgia (Primary Dx); Intractable chronic migraine with aura and without status migrainosus 12/03/2024 Travel 11/22/2024 Telephone [facility] [address] [place], [place] [phone] Soledad Ocasio MD Referral 11/17/2024 Telephone [facility] [address] [place], [place] [phone] Soledad Ocasio MD Care Management ([facility] Graduation) 11/05/2024 3:00 PM EDT Telemedicine [facility] [address] [place], [place] [phone] Nicole Ramsey PharmD Resistant hypertension (Primary Dx); Primary hypertension 11/05/2024 Travel 11/04/2024 Travel 10/22/2024 Travel 10/21/2024 Telephone [facility] [address] [place], [place] [phone] Soledad Ocasio MD Care Management ([facility] TC #1-lvm) 10/20/2024 Travel 10/19/2024 Telephone [facility] [address] [place], [place] [phone] Soledad Ocasio MD Appointment Request 10/19/2024 Travel from Last 3 Months Immunizations Immunization Administration Dates Next Due HPV, Quadrivalent 08/24/2008,06/21/2008 Hep B, adult 06/17/2023, 3,12/20/2022,12/05,01/06/1996,12/06/1995 Influenza injectable quadriv alent preservative free 01/21/2023,02/29/2020,02/05/2017 Influenza, IIV3, injectable 01/21/2023, 4,02/02/2010 Influenza, seasonal, injecta ble, preservative free 09/16/2024 MMR 01/27/1990,07/01/1989,11/26/1988 Meningococcal Polysaccharide A,C,Y,W-135 TT Conjugate 09/02/2022 Pfizer Covid-19 Vaccine 12+ Bivalent 12/20/2022, 12/20/2022 Pneumococcal Conjugate PCV 20 09/16/2024 Tdap 11/19/2023,05/12/2020,02/02/2010 Family History Medical History Relation [...] Sign Reading Time Taken Comments Blood Pressure 144/94 12/03/2024 1:19 PM EDT Pulse 84 12/03/2024 1:19 PM EDT Temperature 36.9 C (98.4 F) 12/03/2024 1:19 PM EDT Respiratory Rate 20 12/03/2024 1:19 PM EDT Oxygen Saturation 98% 12/03/2024 1:19 PM EDT Inhaled Oxygen Concentration - - Weight 84.6 kg (186 lb 6.4 oz) 12/03/2024 1:19 P M EDT Height 147.3 cm (4' 10 ) 12/03/2024 1:19 PM EDT Body Mass Index 38.96 12/03/2024 1:19 PM EDT Plan of Treatment Upcoming Encounters Date Type Department Care Team (Late st Contact Info) Description 01/19/2025 11:30 AM EDT Office Visit [facility] [address] [place] [address] Soledad Ocasio MD [address] [place] [address] Health Maintenance Due Date Last Done Comments Family Planning (PISQ) 07/02/2002 HPV Vaccines (3 - 3-dose series) 12/19/2008 08/24/2008, 06/21/2008 COVID-19 Vaccine ( season) 2024 12/20/2022, 12/20/2022, 01/19/2021, Additional history exists Influenza Vaccine (#1) 2024 , 01/21/2023, 01/21/2023, Additional history exists Diabetes: Hemoglobin A1C 04/15/2025 04/15/2024 Disability Screening 04/15/2025 04/15/2024 Alcohol/Substance Use Screening 06/17/2025 06/17/2024 Depression Screening 06/17/2025 06/17/2024, 06/17/19 SDOH Screening 06/17/2025 06/17/2024 Tobacco Screening 12/15/2025 12/15/2024 Cervical Cancer Screening 07/15/2026 HPV/Cotest 07/15/2026 07/16/2023, 08/27, 09/18/2017 Pap Smear 07/15/2026 07/16/2023, 09/17/2022 Lipid [...] 01/21/2023, 12/20/2022, Additional history exists Pneumococcal Vaccine: Pediatrics (0 to 5 Years) and At-Risk Patients (6 to 49) Years Completed 09/16/2024 HIB Vaccines Aged Out No longer eligi [...] DUPLEX COMPLETE Routine 12/21/2024 11:46 AM EDT MR KNEE WO CONTRAST LEFT Routine 12/13/2024 8:00 PM EDT HEMOGLOBIN A1C Routine 04/15/2024 1:41 PM EST [...] Recently Relevant to Health Maintenance Results * [facility] US Abdominal pelvic Duplex Complete (12/21/2024 11:46 AM EDT) us Historical Provider CV VASCULAR PROCEDURES Fi nal Result * Knee w/o Contrast Left (12/13/2024 8:00 PM EDT) Anatomical Region Laterality Modality Magnetic Resonan ce 12/13/2024 8:00 PM EDT Narrative 12/14/2024 7:14 AM EDT [place] [address] Magnetic Resonance Report Signed Patient: Qing Ackerman MR#: [id number] : 1985 Acct:[id number] Age/Sex: 39 / F ADM Date: 12/13/24 Loc: HO.MRI Attending Dr: Jeff Romo MD Ordering Physician: Jeff Romo MD Date of Service: 12/13/24 Procedure(s): MR knee LT wo con Accession Number(s): [id number] cc: Jeff Romo MD; Soledad Ocasio MD EXAMINATION: MRI LEFT KNEE WITHOUT CONTRAST HISTORY: S83.242A - Other tear of medial meniscus, current injury, left knee, initial... COMPARISON: Correlation is made with plain films of the left knee dated 10/05/2024. TECHNIQUE: Coronal T1 and fat-suppressed proton density, sagittal proton density and fat-suppressed proton density, and axial fat suppressed T2 weighted MR images of the left knee were obtained. FINDINGS: Bone marrow: Bone marrow signal intensity is normal. Joint effusion: There is no joint effusion. Torrez's cyst: There is no Torrez's cyst. Articular cartilage: Intact Muscles/soft tissues: The visualized muscles demonstrate normal signal intensity. Anterior cruciate ligament: Intact Posterior cruciate ligament: Intact Medial collateral ligament: Intact Lateral collateral ligament: Intact Medial meniscus: Intact Lateral meniscus: Intact Flexor mechanism: The popliteus, gastrocnemius, and hamstring tendons are intact. Quadriceps tendon: Intact Patellar tendon: Intact Patellar retinacula: Intact MR/MR knee LT wo con IMPRESSION: Unremarkable MRI of the left knee. Electronically signed by: Cristobal Burns MD 12/14/2024 07:11 AM EDT Dictated By: Cristobal Burns MD Signed By: <Electronically signed by Cristobal Burns MD in [place]> 12/14/24 07 DD/ 99 TD/TT: 12/13/242012 Pharmacovigilance Specialist: Procedure Note Donotuseinterpreter, Image - 12/14/2024 [place] [address] Magnetic Resonance Report Signed Patient: Qing Ackerman#: [id number] : 1985Acct:[id number] Age/Sex: 39 / FADM Date: 12/13/24 Loc: HO.MRI Attending Dr: Jeff Romo MD Ordering Physician: Jeff Romo MD Date of Service: 12/13/24 Procedure(s): MR knee LT wo con Accession Number(s): [id number] cc: Jeff Romo MD; Soledad Ocasio MD EXAMINATION: MRI LEFT KNEE WITHOUT CONTRAST HISTORY: S83.242A - Other tear of medial meniscus, current injury, left knee, initial... COMPARISON: Correlation is made with plain films of the left knee dated 10/05/2024. TECHNIQUE: Coronal T1 and fat-suppressed proton density, sagittal proton density and fat-suppressed proton density, and axial fat suppressed T2 weighted MR images of the left knee were obtained. FINDINGS: Bone marrow: Bone marrow signal intensity is normal. Joint effusion: There is no joint effusion. Torrez's cyst: There is no Torrez's cyst. Articular cartilage: Intact Muscles/soft tissues: The visualized muscles demonstrate normal signal intensity. Anterior cruciate ligament: Intact Posterior cruciate ligament: Intact Medial collateral ligament: Intact Lateral collateral ligament: Intact Medial meniscus: Intact Lateral meniscus: Intact Flexor mechanism: The popliteus, gastrocnemius, and hamstring tendons are intact. Quadriceps tendon: Intact Patellar tendon: Intact Patellar retinacula: Intact MR/MR knee LT wo con IMPRESSION: Unremarkable MRI of the left knee. Electronically signed by: Cristobal Burns MD 12/14/2024 07:11 AM EDT Dictated By: Cristobal Burns MD Signed By: <Electronically signed by Cristobal Burns MD in [place]> 12/14/24 07 DD/ 99 TD/TT: 12/13/242012 Pharmacovigilance Specialist: [facility] External Provider IMG MRI PROCEDURES Edited Result - Final * Hemoglobin A1c (04/15/2024 1:41 PM EST) Hemoglobin A1c 5.9 <6.0 % [facility] Comment:Hemoglobin A1C Refer ence Range Adults: 4.8 - 6.0 % Non diabetic: < 6.0 % Goal: < 7.0 %Additional Action Suggested: > 8.0 %Note: Hemoglobin A1c results are invalid for patients with abnormal amounts of HbF. Blood transfusions may impact the HbA1c concentration in the patient sample. Estimated Average Glucose 123 mg/dL [facility] Comment:eAG = Estimated ave rage glucose which is %A1C expressed asaverage glucose, using the formula of the [id number] Glucose study (ADAG), Diabetes Care, Vol.31,#8,2007 Blood Venous blood specimen / Unknown 04/15/2024 1:41 PM EST 04/15/2024 2:22 PM EST us Soledad Ocasio MD LAB BLOOD ORDERABLES Final Re sult Performing Organization Address [facility] Co de Phone Number [facility] [address] [place] [address] [phone] * (ABNORMAL) Lipid Panel, Standard (04/15/2024 1:41 PM EST) Triglycerides 102 <150 mg/dL [facility] Comment:Desirable Triglyceri de: less than 150 mg/dLBorderline High Triglyceride 150-199 mg/dLHigh Triglyceride: 200-499 mg/dLVery High Triglyceride: greater than or equal to 5OO mg/dL Cholesterol 123 <200 mg/dL [facility] Comment:Desirable Cholestero l: less than 200 mg/dLBorderline High Cholesterol: 200-239 mg/dLHigh Cholesterol: greater than 239 mg/dL LDL Cholesterol Calculated 68 <100 mg/dL [facility] Comment:Desirable LDL: less than 100 mg/dLNear Optimal/Above Optimal LDL: 110- 129 mg/dLBorderline High LDL: 130-159 mg/dLHigh LDL: 160-189 mg/dLVery High LDL: greater than or equal to 190 mg/dL HDL Cholesterol 35(L) >40 mg/dL [facility] Comment:Desirable HDL: great er than 40 mg/dL Note: This HDL assay may give artificially low results in patients with liver disease. Blood Venous blood specimen / Unknown 04/15/2024 1:41 PM EST 04/15/2024 2:22 PM EST us Soledad Ocasio MD LAB BLOOD ORDERABLES Final Re sult Performing Organization Address [facility] Co de Phone Number [facility] [address] [place] [address] [phone] * HM PAP/HPV (07/16/2023 12:00 AM EDT) Pap Smear 1. NILM 1. NILM [facility] HPV Not Detected Undetected, Indeterminat e, Quantitative , Not Detected [facility] Historical Provider HEALTH MAINTENANCE Edited Result - Final Performing Organization Address City/[facility]/ZIP Co de Phone Number [facility] [address] [place] [address] * Hepatitis C Antibody with Reflex to HCV, RNA, Quantitative, Real-Time PCR (09/02/2022 11:51 AM EDT) Pathologist [facility] Hepatitis C Antibody NON-REACT JACKIE NON-REACT JACKIE [employer] [place] [facility] Index 0.09 <1.00 [facility] [place] [facility] Comment: HCV antibody was non-reactive. There is no laboratory evidence of HCV infection. In most cases, no further action is required. However, if recent HCV exposure is suspected, a test for HCV RNA (test code 50284) is suggested. For additional information please refer to http://education.Lorena Gaxiola/faq/WTX11w5 (This link is being provided for informational/ educational purposes only.) Blood Venous blood specimen / Unknown 09/02/2022 11:51 AM EDT 09/02/2022 11:52 AM EDT Soledad Ocasio MD LAB BLOOD ORDERABLES Final Re sult Performing Organization Address City/[facility]/ZIP Co de Phone Number [facility] [address] [place] [address] [employer] [place] [facility] [address] [place] [address] * HIV-1/2 Antigen and Antibodies, Fourth Generation, with Reflexes (09/02/2022 11:51 AM EDT) Pathologist [facility] HIV Antigen/Antibody, 4th Generation NON-REAC TIVE NON-REAC TIVE [facility] [place] [facility] Comment: HIV-1 antigen and HIV-1/HIV-2 antibodies were not detected. There is no laboratory evidence of HIV infection. PLEASE NOTE: This information has been disclosed to you from records whose confidentiality may be protected by state law. If your state requires such protection, then the state law prohibits you from making any further disclosure of the information without the specific written consent of the person to whom it pertains, or as otherwise permitted by law. A general authorization for the release of medical or other information is NOT sufficient for this purpose. For additional information please refer to http://[employer].Lorena Gaxiola/faq/LZY512 (This link is being provided for informational/ educational purposes only.) The performance of this assay has not been clinically validated in patients less than 2 years old. Blood Venous blood specimen / Unknown 09/02/2022 11:51 AM EDT 09/02/2022 11:52 AM EDT us Soledad Ocasio MD LAB BLOOD ORDERABLES Final Re sult [facility] [address], [place] [address] [facility] [address] [place] [phone] from Last 3 Months or Most Recently Relevant to Health Maintenance Insurance C3 Care Teams Nurse Receptionist Relationship Specialty Start Date End Date Soledad Ocasio MD [address] [place] [phone] PCP - General Family Medicine 08/07/22
== END 2025-01-12 12:58 | disposition home or self-care (01) ==
LOC: HO.HOS 12:31
PROVIDERS: PCP Family Medicine; Visit Provider Orthopaedic Surgery
DX: M25.561 Pain in right knee (principal); M25.562 Pain in left knee; M17.12 Unilateral primary osteoarthritis, left knee
CPT/HCPCS: 99213

== ENCOUNTER → 2025-01-12 12:30 | Outpatient (BNVA) | payer MEDICAID, SELFPAY | PROVIDERS: PCP Family Medicine; Visit Provider Orthopaedic Surgery | DX: M25.562 Pain in left knee (principal); M25.561 Pain in right knee; M17.12 Unilateral primary osteoarthritis, left knee | CPT/HCPCS: 99212 ==

== ENCOUNTER 2025-01-19 13:12 | Outpatient (REF) | payer MEDICAID, SELFPAY ==
--- OUTSIDE RECORDS SUMMARY | 2025-01-19 11:30 | XMS_ITS | Encounter Summary ---
Author Organization [employer] Address [address] [place] [address] Care Team Providers Care Mobile Home Set Up Person Name Role Phone Soledad Ocasio MD Primary Care Provider [phone] Encounter Details Date Type Department Care Team ([facility] st Contact Info) Description 01/19/2025 11:30 AM EDT Office Visit [facility] MED & PEDS [address] [place], [place] [phone] Soledad Ocasio MD [address] [place], [place] [phone] Alopecia (Primary Dx); Fibromyalgia Social History Tobacco Use Types Packs/Day Years [...] AM EDT documented as of this encounter Last Filed Vital Signs Vital Sign Reading Time Taken Comments Blood Pressure 145/96 01/19/2025 11:50 AM EDT Pulse 82 01/19/2025 11:50 AM EDT Temperature 36.6 C (97.8 F) 01/19/2025 11:50 AM EDT Respiratory Rate 20 01/19/2025 11:50 AM EDT Oxygen Saturation 98% 01/19/2025 11:50 AM EDT Inhaled Oxygen Concentration - - Weight 82.6 kg (182 lb 3.2 oz) 01/19/2025 11:50 AM EDT Height 147.3 cm (4' 10 ) 01/19/2025 11:50 AM EDT Body Mass Index 38.08 01/19/2025 11:50 AM EDT documented in this encounter Plan of Treatment Upcoming Encounters Date Type Department Care Team (Late st Contact Info) Description 03/18/2025 1:45 PM EST Office Visit [facility] MED [facility] PEDS [address] [place] [address] Soledad Ocasio MD [address] [place] [address] documented as of this encounter Procedures Procedure Name Priority Date/Time Associated Diagnosis Comments VITAMIN D,25-OH,TOTAL,IA Routine 01/19/2025 1:14 PM EDT Alopecia TSH W/REFLEX TO FT4 Routine 01/19/2025 1 :14 PM EDT Alopecia CBC WITH AUTO DIFFERENTIAL Routine 01/19/2025 1:14 PM EDT Alopecia IRON AND TOTAL IRON BINDING CAPACITY Routine 01/19/2025 1:14 PM EDT Alopecia documented in this encounter Results * (ABNORMAL) Vitamin D, 25-Hydroxy, Total, Immunoassay (01/19/2025 1:14 PM EDT) Vitamin D 25-OH Total 20.4(L) >30 ng/mL [facility] Comment: Health Based Reference Values*< 20 ng/mL Odmtygxxz05-19 ng/mL Insufficient> 30 ng/mL Sufficient*Henna RODRIGUEZ. N Engl J Med. 2007;357:266-280There is no well-established upper level of normal vitamin Dlevels. Some laboratories use 50 ng/mL as an upper limit ofnormal. However, toxicity is patient-dependent and may occurat any level. Careful correlation with the patient'spresentation is necessary and, if there is concern forvitamin D toxicity, treatment should be consideredirrespective of the serum level.Care must be taken in interpreting Vitamin D results fromdifferent laboratories and methodologies. Published datademonstrated that results from patients undergoinghemodialysis may show a negative bias when tested withvarious automated 25-OH vitamin D assays when compared toLC-MS/MS.When testing samples from patients whose predominant form ofVitamin D is Vitamin D2, such as patients receiving VitaminD2 supplementation, results that are subtherapeutic shouldbe confirmed with another method such as LC-MS/MS. Blood Venous blood specimen / Unknown 01/19/2025 1:14 PM EDT 01/19/2025 2:35 PM EDT us Soledad Ocasio MD LAB BLOOD ORDERABLES Final Re sult [facility] [address] [place] [phone] * TSH W/Reflex to FT4 (01/19/2025 1:14 PM EDT) [facility] TSH reflex Free T4 0.87 0.32 - 4.0 uIU/mL [facility] Blood Venous blood specimen / Unknown 01/19/2025 1:14 PM EDT 01/19/2025 2:35 PM EDT Soledad Ocasio MD LAB BLOOD ORDERABLES Final Re sult Performing Organization Address [facility]/ZIP Co de Phone Number [facility] [address] [place] [phone] * (ABNORMAL) Iron And Total Iron Binding Capacity (01/19/2025 1:14 PM EDT) [facility] Iron 33 30 - 160 mcg/dL [facility] Total Iron Binding Capacity 272 228 - 428 mcg/dL [facility] Percent Iron Saturation 12(L) 15 - 50 % [facility] Unsaturated Iron Binding 239 ug/dL [facility] Blood Venous blood specimen / Unknown 01/19/2025 1:14 PM EDT 01/19/2025 2:35 PM EDT us Soledad Ocasio MD LAB BLOOD ORDERABLES Final Re sult Performing Organization Address [facility]/ZIP Co de Phone Number [facility] [address] [place] [phone] * (ABNORMAL) CBC auto differential (01/19/2025 1:14 PM EDT) [facility] White Blood Count 10.8 4.8 - 10.8 X10*3/uL [facility] Red Blood Count 4.40 4.20 - 5.50 X10*6/uL [facility] Hemoglobin 11.6(L) 12.0 - 16.0 g/dl [facility] Hematocrit 36.8(L) 37.0 - 47.0 % [facility] Mean Corpuscular Volume 83.6 80.0 - 98.0 fL [facility] Mean Corpuscular Hemoglobin 26.4(L) 27.0 - 33.0 pg [facility] Mean Corpuscular HGB Conc 31.5 31.0 - 35.0 g/dl [facility] Red Cell Distribution Width 13.7 11.0 - 16.0 % [facility] Platelet Count 341 160 - 400 X10*3/uL [facility] Mean Platelet Volume 10.5 9.4 - 12.3 fL [facility] Neutrophils Percent Auto 69.7 45 - 73 % [facility] Imm Gran Pct Auto 0.5(H) 0.0 - 0.4 % [facility] Lymphocytes Percent Auto 23.5 20 - 40 % [facility] Monocytes Percent Auto 4.4 2 - 11 % [facility] Eosinophils Percent Auto 1.5 0 - 4 % [facility] Basophils Percent Auto 0.4 0 - 2 % [facility] NRBC Pct Auto 0.0 0.0 - 0.2 /100WBC [facility] Neutrophils Absolute Auto 7.6 2.0 - 8.3 x10*3/uL [facility] Imm Gran Abs Auto 0.05(H) 0.00 - 0.03 X10*3/uL [facility] Lymphocytes Absolute Auto 2.5 1.2 - 4.9 X10*3/uL [facility] Monocytes Absolute Auto 0.5 0.1 - 1.2 X10*3/uL [facility] Eosinophils Absolute Auto 0.2 0.0 - 0.4 X10*3/uL [facility] Basophils Absolute Auto 0.0 0.0 - 0.2 X10*3/uL [facility] NRBC Abs Auto 0.000 0.0 - 0.012 X10*3/uL [facility] Blood Venous blood specimen / Unknown 01/19/2025 1:14 PM EDT 01/19/2025 2:28 PM EDT us Soledad Ocasio MD LAB BLOOD ORDERABLES Final Re sult [facility] [address] [place] [phone] documented in this encounter Visit Diagnoses Diagnosis Alopecia- Primary Fibromyalgia Unspecified myalgia and myositis documented in this encounter Additional Health Concerns Assessment Noted Time PHQ-9 Depression Total Score: 0 06/17/19 25 1:39 PM EST documented as of this encounter Care Teams Mobile Home Set Up Person Relationship Specialty Start Date End Date Soledad Ocasio MD [address] [place] [address] PCP - General Family Medicine 08/07/22 documented as of this encounter
[2025-01-19 14:33] LABS: MANUAL DIFF FLAG NO
[2025-01-19 14:38] LABS: Hematocrit 36.8 % (37.0-47.0); Hemoglobin 11.6 g/dl (12.0-16.0); Imm Gran Abs Auto 0.05 X10*3/uL (0.00-0.03); Imm Gran Pct Auto 0.5 % (0.0-0.4); Lymphocytes Absolute Auto 2.5 X10*3/uL (1.2-4.9); Mean Corpuscular HGB Conc 31.5 g/dl (31.0-35.0); Mean Corpuscular Hemoglobin 26.4 pg (27.0-33.0); Mean Corpuscular Volume 83.6 fL (80.0-98.0); NRBC Abs Auto 0.000 X10*3/uL (0.0-0.012); NRBC Pct Auto 0.0 /100WBC (0.0-0.2); Platelet Count 341 X10*3/uL (160-400); Red Blood Count 4.40 X10*6/uL (4.20-5.50); White Blood Count 10.8 X10*3/uL (4.8-10.8)
[2025-01-19 15:20] LABS: Iron 33 mcg/dL (30-160); Percent Iron Saturation 12 % (15-50); Total Iron Binding Capacity 272 mcg/dL (228-428); Unsaturated Iron Binding 239 ug/dL
--- OUTSIDE RECORDS SUMMARY | 2025-01-19 15:35 | XMS_ITS | Encounter Summary ---
Author Organization [employer] Address [address] [place] [address] Care Team Providers Care Anodic Operator Name Role Phone Soledad Ocasio MD Primary Care Provider [phone] Nicole Ramsey PharmD Unavailable [phone] Encounter Details Date Type Department Care Team ([facility] st Contact Info) Description 09/15/2023 Telephone [facility] MED & PEDS [address] [place], [place] [phone] Soledad Ocasio MD [address] [place], [place] [phone] Social History Tobacco Use Types Packs/Day Years [...] PM EDT Tc to pt who stated [facility] is telling her to get Hep B titers. However, pt already had Hep B titers done on 09/09 which showed she was immune to Hep B. Pt brought these results to [facility] but they still insisted on pt getting Hep B titers. Provided pt with our office number for [facility] to call us. Pt verbalized understanding and agreement with plan. * Telephone Encounter - Ruth Smith - 09/15/2023 2:40 PM EDT Tc from pt requesting a call back to discuss immunizations. documented in this encounter Plan of Treatment Upcoming Encounters Date Type Department Care Team ([facility] st Contact Info) Description 03/18/2025 1:45 PM EST Office Visit [facility] MED & PEDS [address] [place] [address] Soledad Ocasio MD [address] [place] [address] documented as of this encounter Visit Diagnoses Not on filedocumented in this encounter Additional Health Concerns Assessment Noted Time PHQ-9 Depression Total Score: 17 023 11:47 AM EDT documented as of this encounter Care Teams Anodic Operator Relationship Specialty Start Date End Date Soledad Ocasio MD [address] [place] [phone] PCP - General Family Medicine 08/07/22 Nicole Ramsey, Janis [address] [place] [phone] Pharmacist Internal Medicine 07/07/24 11/06/24 documented as of this encounter
--- OUTSIDE RECORDS SUMMARY | 2025-01-19 15:35 | XMS_ITS | Encounter Summary ---
Author Organization [employer] Address [address] [place] [address] Care Team Providers Care Regulatory Affairs Associate Name Role Phone Soledad Ocasio MD Primary Care Provider [phone] Encounter Details Date Type Department Care Team (Latest Contact Info) Description 01/19/2025 Travel Social History Tobacco Use Types Packs/Day [...] is your housing situation today? I have linettekristen ramsey 04/23/[address] you [...] Description 03/18/2025 1:45 PM EST Office Visit [facility] CH[facility] MED & PEDS [address] [place] [address] Soledad Ocasio MD [address] [place] [address] documented as of this encounter Visit Diagnoses Not on filedocumented in this encounter Additional Health Concerns Assessment Noted Time PHQ-9 Depression Total Score: 0 06/17/19 25 1:39 PM EST documented as of this encounter Care Teams Regulatory Affairs Associate Relationship Specialty Start Date End Date Soledad Ocasio MD [address] [place] [address] PCP - General Family Medicine 08/07/22 documented as of this encounter
--- OUTSIDE RECORDS SUMMARY | 2025-01-19 15:35 | XMS_ITS | Encounter Summary ---
Author Organization [employer] Address [address] 7[address] [place] [address] Care Team Providers Care Scroll Assembler Name Role Phone Soledad Ocasio MD Primary Care Provider [phone] Nicole Ramsey PharmD Unavailable [phone] Encounter Details Date Type Department Care Team (Late st Contact Info) Description 07/07/2024 Orders Only [facility] MEDICINE [address] [place], [place] [phone] Sona Mccarthy MD [address] [place], [place] [phone] Social History Tobacco Use Types Packs/Day Years [...] 1:45 PM EST Office Visit [facility] MED & PEDS [address] [place] [address] Soledad Ocasio MD [address] [place] [address] documented as of this encounter Visit Diagnoses Not on filedocumented in this encounter Additional Health Concerns Assessment Noted Time PHQ-9 Depression Total Score: 0 06/17/19 1:39 PM EST documented as of this encounter Care Teams Scroll Assembler Relationship Specialty Start Date End Date Soledad Ocasio MD [address] [place] [address] PCP - General Family Medicine 08/07/22 Nicole Ramsey PharmD [address] [place] [address] Pharmacist Internal Medicine 07/07/24 11/06/24 documented as of this encounter
--- OUTSIDE RECORDS SUMMARY | 2025-01-19 15:35 | XMS_ITS | Encounter Summary ---
Author Organization [employer] Address [address] [facility] 7t [place] [address] Care Team Providers Care Fitness Attendant Name Role Phone Soledad Ocasio MD Primary Care Provider [phone] Nicole Ramsey PharmD Unavailable [phone] Reason for Visit * Reason Comments Med Refill Encounter Details Date Type Department Care Team ([facility] st Contact Info) Description 09/22/[address] [facility] CHC MED & PEDS [address] [place], [place] [phone] Fahad Agrawal MD [address] [place] [address] Low back pain at multiple sites Social [...] Description 03/18/2025 1:45 PM EST Office Visit [facility] CHC MED & PEDS [address] [place] [address] Soledad Ocasio MD [address] [place] [address] documented as of this encounter Visit Diagnoses Diagnosis Low back pain at multiple sites documented in this encounter Additional Health Concerns Assessment Noted Time PHQ-9 Depression Total Score: 0 06/17/19 1:39 PM EST documented as of this encounter Care Teams Fitness Attendant Relationship Specialty Start Date End Date Soledad Ocasio MD [address] [place] [address] PCP - General Family Medicine 08/07/22 Nicole Ramsey PharmD [address] [place] [address] Pharmacist Internal Medicine 07/07/24 11/06/24 documented as of this encounter
--- OUTSIDE RECORDS SUMMARY | 2025-01-19 15:35 | XMS_ITS | Encounter Summary ---
Author Organization [employer] Address [address] [facility] 7 [place] [address] Care Team Providers Care Sequins Stringer Name Role Phone Soledad Ocasio MD Primary Care Provider Nicole Ramsey PharmD Unavailable Encounter Details Date Type Department Care Team ([facility] Contact Info) Description 05/26/2022 Orders Only [facility] MEDICINE [address] [place], [place] [phone] Billy Muñiz MD [address] [place], [place] [phone] Major depressive disorder, remission status unspecified, unspecified [...] Department Care Team (Late Contact Info) Description 03/18/2025 1:45 PM EST Office Visit [facility] CH[facility] MED & PEDS [address] [place], [place] [phone] Soledad Ocasio MD [address] [place], [place] [phone] documented as of this encounter Visit Diagnoses Diagnosis Major depressive disorder, remission status unspecified, unspecified whether recurrent- Primary documented in this encounter Care Teams Sequins Stringer Relationship Specialty Start Date End Date Soledad Ocasio MD [address] [place] [address] PCP - General Family Medicine 08/07/22 Nicole Ramsey PharmD [address] [place] [address] Pharmacist Internal Medicine 07/07/24 11/06/24 documented as of this encounter
--- OUTSIDE RECORDS SUMMARY | 2025-01-19 15:35 | XMS_ITS | Encounter Summary ---
Author Organization [employer] Address [address] [place] [address] Care Team Providers Care Television Engineer Name Role Phone Soledad Ocasio MD Primary Care Provider [phone] Nicole Ramsey PharmD Unavailable [phone] Reason for Visit * Reason Comments Med Refill Encounter Details Date Type Department Care Team ([facility] st Contact Info) Description 05/28/2024 Refill [facility] CH[facility] MED & PEDS [address] [place], [place] [phone] Soledad Ocasio MD [address] [place] [address] Mood disorder (CMS/HCC) Social History Tobacco Use [...] Upcoming Encounters Date Type Department Care Team ([facility] st Contact Info) Description 03/18/2025 1:45 PM EST Office Visit [facility] MED & PEDS [address] [place] [address] Soledad Ocasio MD [address] [place] [address] documented as of this encounter Visit Diagnoses Diagnosis Mood disorder (CMS/HCC) Unspecified episodic mood disorder documented in this encounter Additional Health Concerns Assessment Noted Time PHQ-9 Depression Total Score: 15 025 9:18 AM EST documented as of this encounter Care Teams Television Engineer Relationship Specialty Start Date End Date Soledad Ocasio MD [address] [place] [address] PCP - General Family Medicine 08/07/22 Nicole Ramsey PharmD [address] [place] [address] Pharmacist Internal Medicine 07/07/24 11/06/24 documented as of this encounter
--- OUTSIDE RECORDS SUMMARY | 2025-01-19 15:35 | XMS_ITS | Encounter Summary ---
Author Organization [employer] Address [address] [place] [address] Care Team Providers Care Info Specialist Name Role Phone Soledad Ocasio MD Primary Care Provider Nicole Ramsey PharmD Unavailable [phone] Reason for Visit * Reason Onset Date Comments Appointment Request 10/05/2024 Encounter Details Date Type Department Care Team ([facility] st Contact Info) Description 10/05/2024 Telephone [facility] MEDICINE [address] [place] [address] Soledad Ocasio MD [address] [place] [address] Appointment Request Social History Tobacco Use Types [...] scheduled for today 10/05. Please return call [phone] documented in this encounter Plan of Treatment Upcoming Encounters Date Type Department Care Team ([facility] st Contact Info) Description 03/18/2025 1:45 PM EST Office Visit [facility] MED & PEDS [address] [place] [address] Soledad Ocasio MD [address] [place] [address] documented as of this encounter Visit Diagnoses Not on filedocumented in this encounter Additional Health Concerns Assessment Noted Time PHQ-9 Depression Total Score: 0 06/17/19 25 1:39 PM EST documented as of this encounter Care Teams Info Specialist Relationship Specialty Start Date End Date Soledad Ocasio MD [address] [place] [phone] PCP - General Family Medicine 08/07/22 Nicole Ramsey, Janis [address] [place] [phone] Pharmacist Internal Medicine 07/07/24 11/06/24 documented as of this encounter
--- OUTSIDE RECORDS SUMMARY | 2025-01-19 15:35 | XMS_ITS | Encounter Summary ---
Author Organization [employer] Address [address] [place] [address] Care Team Providers Care Social Security Specialist Name Role Phone Soledad Ocasio MD Primary Care Provider [phone] Reason for Visit * Reason Comments Med Refill Encounter Details Date Type Department Care Team ([facility] st Contact Info) Description 12/15/2024 Refill [facility] MED & PEDS [address] [place], [place] [phone] Soledad Ocasio MD [address] [place] [address] Hypertension, unspecified type Social History Tobacco Use [...] Description 03/18/2025 1:45 PM EST Office Visit [facility] MED & PEDS [address] [place] [address] Soledad Ocasio MD [address] [place] [address] documented as of this encounter Visit Diagnoses Diagnosis Hypertension, unspecified type documented in this encounter Additional Health Concerns Assessment Noted Time PHQ-9 Depression Total Score: 0 06/17/19 25 1:39 PM EST documented as of this encounter Care Teams Social Security Specialist Relationship Specialty Start Date End Date Soledad Ocasio MD [address] [place] [address] PCP - General Family Medicine 08/07/22 documented as of this encounter
--- OUTSIDE RECORDS SUMMARY | 2025-01-19 15:35 | XMS_ITS | Clinical Summary ---
Author Organization [facility] Address [address] [place] [address] Phone Care Team Providers Care Practice Business Asst Name Role Phone Barbara Cabrera MD Primary Care Provider [phone] Encounters Date Type Department Care Team Description 12/21/2024 12:45 PM EDT - 12/21/2024 11:59 PM EDT Hospital Encounter [facility] Ultrasound [address] [place] [address] Resistant hypertension Discharge Disposition: Home or Self Care from Last 3 Months Social History Tobacco Use Types Packs/Day Years Used Date Smoking Tobacco: Never Assessed Comments Unknown Sex and Gender Information Value Date Recorded Sex Assigned at Not on file Legal Sex Female 2:35 PM EST Gender Identity Not on file Sexual Orientation Not on file Plan of Treatment Health Maintenance Due Date Last Done Comments Cervical Cancer Screening: Pap Smear 07/02/2008 HPV Vaccines (3 - 3-dose series) 12/19/2008 08/24/2008, 06/21/2008 Social Influencers of Health Screening 03/27/2022 Depression Screening 04/28/2024 Hypertension/CHF/CAD Annual BMP Blood Test 12/17/2024 COVID-19 Vaccine ( - season) 2024 12/20/2022, 01/19/2021, 12/29/2020 Influenza Vaccine (#1) 2024 , 01/21/2023, 02/29/2020, Additional history exists Cholesterol Screening (Lipid Panel) 04/15/2029 04/15/2024 DTaP,Tdap,and Td Vaccines (4 - Td or Tdap) 11/18/2033 11/19/2023, 05/12/2020, 02/02/2010 RSV Immunization Adult Patients (1 - 1-dose 75+ series) 07/02/2062 MMR Vaccines Completed 01/27/1990, 09/1989, 11/26/1988 HIV Screening Completed 09/02/2022 Hepatitis C Screening Completed 09/02/2022 Meningococcal ACWY Vaccine Aged Out 09/02/2022 N o longer eligible based on patient's age to complete this topic Hepatitis B Vaccines Completed 06/17/2023, 01/21/2023, 12/20/2022, Additional history exists Pneumococcal Vaccine: Pediatrics (0 to 5 Years) and At-Risk Patients (6 to 49 Years) Completed 09/16/2024 HIB Vaccines Aged Out No [...] to complete this topic RSV Immunization Patients Under 20 months Aged Out No longer eligible based on patient's age to complete this topic Varicella Vaccines Aged Out No longer eligible based on patient's age to complete this topic Procedures Procedure Name Priority Date/Time Associated Diagnosis Comments US DUPLEX ABDOMEN/PELVIS/RET RO COMPLETE Routine 12/21/2024 1:13 PM EDT Resistant hypertension from Last 3 Months Results * US Duplex Abdomen/Pelvis/Retro Complete (12/21/2024 1:13 PM EDT) Anatomical Region Laterality Modality Body Ultrasound 12/22/2024 9:26 AM EDT Impressions 12/22/2024 9:29 AM EDT 1. Renal ultrasound examination demonstrates normal appearance of the kidneys bilaterally. Incidental note is made of coarsened hepatic echotexture consistent with fatty infiltration and/or hepatocellular disease. 2. Doppler evaluation of the renal arteries demonstrates no evidence of renal artery stenosis. Code 17092, 94821 -------- FINAL REPORT -------- Dictated By: Ruiz Gallegos Dictated Date: 12/22/2024 09:26 ET Assigned Physician: Ruiz Gallegos Reviewed and Electronically Signed By: Ruiz Gallegos Signed Date: 12/22/2024 09:29 ET Workstation ID: [id number] Transcribed By: Self Edit Transcribed Date: 12/22/2024 09:26 ET Narrative 12/22/2024 9:29 AM EDT HISTORY: The patient is a 39-year-old female with hypertension, difficult to control. FINDINGS: Real-time ultrasonography of the kidneys is performed. The right kidney is normal in size and appearance, measuring 10.9 cm in length. There is normal cortical thickness and no mass, calculus, or hydronephrosis is seen. The left kidney is also normal in size and appearance, measuring 10.3 cm in length. There is normal cortical thickness and no mass, calculus, or hydronephrosis is seen. Incidental note is made of coarsening of the hepatic echotexture consistent with fatty infiltration and/or hepatocellular disease. Doppler interrogation of the renal arteries was then performed. In the right kidney, the acceleration times in the upper, mid, and lower pole are 0.03 seconds, 0.08, and 0.07, respectively. The resistive indices in the upper, mid, lower pole are 0.66, 0.62, and 0.57, respectively. The velocities in the proximal, mid, and distal renal artery are 92.0 cm/sec, 116.1, and 146.8, respectively. The renal to aortic ratio is 1.05. These values are all within normal limits. In the left kidney, the acceleration times in the upper, mid, and lower pole are 0.10 seconds, 0.06, and 0.08, respectively. The resistive indices in the upper, mid, lower pole are 0.66, 0.64, and 0.63, respectively. The velocities in the proximal, mid, and distal renal artery are 118.3 cm/sec, 120.5, and 146.8, respectively. The renal to aortic ratio is 1.05. These values are all within normal limits. Procedure Note Ruiz Gallegos MD - 12/22/2024 HISTORY: The patient is a 39-year-old female with hypertension, difficultto control. FINDINGS: Real-time ultrasonography of the kidneys is performed. The rightkidney is normal in size and appearance, measuring 10.9 cm in length.There is normal cortical thickness and no mass, calculus, orhydronephrosis is seen. The left kidney is also normal in size andappearance, measuring 10.3 cm in length. There is normal corticalthickness and no mass, calculus, or hydronephrosis is seen. Incidentalnote is made of coarsening of the hepatic echotexture consistent withfatty infiltration and/or hepatocellular disease. Doppler interrogation of the renal arteries was then performed. In theright kidney, the acceleration times in the upper, mid, and lower pole are0.03 seconds, 0.08, and 0.07, respectively. The resistive indices in theupper, mid, lower pole are 0.66, 0.62, and 0.57, respectively. Thevelocities in the proximal, mid, and distal renal artery are 92.0 cm/sec,116.1, and 146.8, respectively. The renal to aortic ratio is 1.05. Thesevalues are all within normal limits. In the left kidney, the acceleration times in the upper, mid, and lowerpole are 0.10 seconds, 0.06, and 0.08, respectively. The resistive indicesin the upper, mid, lower pole are 0.66, 0.64, and 0.63, respectively. Thevelocities in the proximal, mid, and distal renal artery are 118.3 cm/sec,120.5, and 146.8, respectively. The renal to aortic ratio is 1.05. Thesevalues are all within normal limits. IMPRESSION: 1. Renal ultrasound examination demonstrates normal appearance of thekidneys bilaterally. Incidental note is made of coarsened hepaticechotexture consistent with fatty infiltration and/or hepatocellulardisease. 2. Doppler evaluation of the renal arteries demonstrates no evidence ofrenal artery stenosis. Code 50450, 00466 -------- FINAL REPORT -------- Dictated By: Ruiz Gallegos Dictated Date: 12/22/2024 09:26 ET Assigned Physician: Ruiz Gallegos Reviewed and Electronically Signed By: Ruiz Gallegos Signed Date: 12/22/2024 09:29 ET Workstation ID: [id number] Transcribed By: Self Edit Transcribed Date: 12/22/2024 09:26 ET us Jigar Bello MD IMG US PROCEDURES Final Result from Last 3 Months Insurance MEDICAID - [place] Care Teams Practice Business Asst Relationship Specialty Start Date End Date Barbara Cabrera MD [address] [place] [address] PCP - General Internal Medicine 02/08/19
--- OUTSIDE RECORDS SUMMARY | 2025-01-19 15:35 | XMS_ITS | Encounter Summary ---
Author Organization [employer] Address [address] [place] [address] Care Team Providers Care Heavy Duty Mechanic Name Role Phone Soledad Ocasio MD Primary Care Provider [phone] Nicole Ramsey PharmD Unavailable [phone] Reason for Visit * Reason Onset Date Comments Appointment Request 10/19/2024 Encounter Details Date Type Department Care Team ([facility] Contact Info) Description 10/19/2024 Telephone [facility] [address] [place] [address] Soledad Ocasio MD [address] [place] [address] Appointment Request Social History Tobacco Use Types [...] requesting r/s 10/19 appointment with Nicole Ramsey. [phone] documented in this encounter Plan of Treatment Upcoming Encounters Date Type Department Care Team ([facility] st Contact Info) Description 03/18/2025 1:45 PM EST Office Visit [facility] MED & PEDS [address] [place] [address] Soledad Ocasio MD [address] [place] [address] documented as of this encounter Visit Diagnoses Not on filedocumented in this encounter Additional Health Concerns Assessment Noted Time PHQ-9 Depression Total Score: 0 06/17/19 25 1:39 PM EST documented as of this encounter Care Teams Heavy Duty Mechanic Relationship Specialty Start Date End Date Soledad Ocasio MD [address] [place] [address] PCP - General Family Medicine 08/07/22 Nicole Ramsey, Janis [address] [facility] [place] [address] Pharmacist Internal Medicine 07/07/24 11/06/24 documented as of this encounter
--- OUTSIDE RECORDS SUMMARY | 2025-01-19 15:35 | XMS_ITS | Encounter Summary ---
Author Organization [employer] Address [address] [place] [address] Care Team Providers Care Offender Employment Specialist Name Role Phone Soledad Ocasio MD Primary Care Provider [phone] Nicole Ramsey PharmD Unavailable [phone] Encounter Details Date Type Department Care Team (Late Contact Info) Description 11/08/2022 Orders Only [facility] PEDS [address] [place], [place] [phone] Gissel Holt MD [address] [place], [place] [phone] Social History Tobacco Use Types Packs/Day Years [...] Description 03/18/2025 1:45 PM EST Office Visit [facility]EDS [address] [place], [place] [phone] Soledad Ocasio MD [address] [place] [address] documented as of this encounter Visit Diagnoses Not on filedocumented in this encounter Additional Health Concerns Assessment Noted Time PHQ-9 Depression Total Score: 17 023 11:47 AM EDT documented as of this encounter Care Teams Offender Employment Specialist Relationship Specialty Start Date End Date Soledad Ocasio MD [address] [place] [address] PCP - General Family Medicine 08/07/22 Nicole Ramsey PharmD [address] [place] [address] Pharmacist Internal Medicine 07/07/24 11/06/24 documented as of this encounter
--- OUTSIDE RECORDS SUMMARY | 2025-01-19 15:35 | XMS_ITS | Clinical Summary ---
Author Organization [facility] Address [address] [address] Phone Care Team Providers Care Drum Operator Name Role Phone Soledad Ocasio MD Primary Care Provider [phone] Allergies No known active allergies Medications * This document contains information received from the source organization and may not represent a complete record from that organization. traZODone (DESYREL) 150 MG tablet Take 150 mg by mouth once daily as needed 09/22/2024 Active Tirzepatide-Awais ght Management (Zepbound) 7.5 MG/0.5ML solution Inject 7.5 mg under the skin 09/16/2024 Active rizatriptan (MAXALT) 10 MG tablet Take 10 mg by mouth 06/17/2024 Active losartan (COZAAR) 100 MG tablet Take 100 mg by mouth in the morning. 10/25/2024 Active Lancets (freestyle) lancets USE DIRECTED FOUR TIMES DAILY 04/23/2024 Active Insulin Pen Needle (B-D UF III MINI PEN NEEDLES) 31G X 5 MM misc USE TO INJECT INSULIN 4 TIMES A DAY DIRECTED. 05/28/2024 Active hydrALAZINE 25 MG tablet Take 25 mg by mouth in the morning and 25 mg at noon and 25 mg in the evening. 10/22/2024 Active FREESTYLE LITE test strip USE DIRECTED FOUR TIMES DAILY 04/23/2024 Active gabapentin (NEURONTIN) 300 MG capsule TAKE 1 CAPSULE BY MOUTH TWICE DAILY FOR PAIN 10/05/2024 Active ferrous sulfate 325 (65 Fe) MG EC tablet 09/21/2024 Active escitalopram (LEXAPRO) 10 MG tablet Take 1 tablet by mouth in the morning. 09/21/2024 Active DULoxetine (CYMBALTA) [address] capsule Take 20 mg by mouth in the morning and 20 mg in the evening. 05/20/2024 05/20/19 Active divalproex (DEPAKOTE) 500 MG EC tablet Take 1 tab by mouth in the morning and 2 tabs in the evening. Do not crush, chew, or split. 09/22/2024 Active chlorthalidone 25 MG tablet Take 25 mg by mouth in the morning. 04/30/2024 Active atenolol (TENORMIN) 50 MG tablet Take 50 mg by mouth in the morning. 06/17/2024 06/17/19 Active albuterol (PROVENTIL,VENT ANN MARIE) 2 MG/5ML syrup Take 2 mg by mouth in the morning and 2 mg in the evening and 2 mg before bedtime. Active NIFEdipine XL (Procardia XL) 60 MG 24 hr tablet Take 1 tablet (60 mg total) by mouth 1 (one) time each day Do not crush, chew, or split. 30 tablet 11 12/17/2024 12/18/19 Active Active Problems Problem Noted Date Diagnosed Date [...] Diarrhea 01/28/2023 Pain of knee region 11/19/2022 Post-traumatic stress disorder 10/28/2022 Chronic low back pain [...] organization. Date Type Department Care Team Description 12/17/2024 9:15 AM EDT Office Visit [facility] [address] [address] Jigar Bello MD Hypertension (Primary Dx); Obesity, not otherwise specified 12/16/2024 9:00 AM EDT Clinical Support [facility] [address] [address] 11/06/2024 Orders Only [facility] [address] [address] Jigar Bello MD Hypertension 11/05/2024 8:30 AM EDT Office Visit [facility] [address] [address] Jigar Bello MD Hypertension (Primary Dx); Obesity, [...] Sign Reading Time Taken Comments Blood Pressure 142/80 12/17/2024 9:32 AM EDT Pulse 82 12/17/2024 9:32 AM EDT Temperature - - Respiratory Rate - - Oxygen Saturation - - Inhaled Oxygen Concentration - - Weight 85.3 kg (188 lb) 12/17/2024 9:32 AM EDT Height 147.3 cm (4' 10 ) 11/05/2024 9:05 AM EDT Body Mass Index 39.29 11/05/2024 9:05 AM EDT Plan of Treatment Upcoming Encounters Date Type Department Care Team (Late st Contact Info) Description 01/19/2025 4:00 PM EDT Office Visit [facility] [address] [phone] Jigar Bello MD [address] [phone] Health Maintenance Due Date Last Done Comments [...] Procedure Name Priority Date/Time Associated Diagnosis Comments 24 HOUR BLOOD PRESSURE MONITOR Routine 12/17/2024 9:32 AM EDT Hypertension URINE ALBUMIN / CREATININE RATIO Routine 11/05/2024 9:54 AM EDT Hypertension RENIN ACTIVITY Routine 11/05/2024 9:42 AM EDT Hypertension ALDOSTERONE Routine 11/05/2024 9:42 AM EDT Hypertension METANEPHRINES,FRACTI ONATED, PLASMA FREE Routine 11/05/2024 9:42 AM EDT Hypertension from Last 3 Months Results * Initiate ABPM Monitoring (12/17/2024 9:32 AM EDT) Anatomical Region Laterality Modality Other us Jigar Bello MD [facility] PROCEDURES F inal Result * urine albumin / creatinine ratio (11/05/2024 9:54 AM EDT) Creatinine, Ur 199.9 Not Estab. mg/dL [facility] Albumin, Urine 27.2 Not Estab. ug/mL [facility] Albumin/Creatin ine Ratio 14 0 - 29 mg/g creat [facility] Comment: Normal: 0 - 29 Moderately increased: 30 - 300 Severely increased: >300 Urine Urine specimen obtained by clean catch procedure / Unknown 11/05/2024 9:54 AM EDT 11/05/2024 us Jigar Bello MD LAB URINE ORDERABLES Final Resul t [facility] [address] [place] [address] * Renin Activity, Plasma (11/05/2024 9:42 AM EDT) Renin Activity 0.239 0.167 - 5.380 ng/mL/hr [facility] Blood Venous blood / Unknown 11/05/2024 9:42 AM EDT 11/05/2024 Narrative [facility] - 11/15/2024 12:06 PM EDT Test(s) 310352-Itaxw Activity, Plasma was developed and its performance characteristics determined by [facility]. It has not been cleared or approved by the Food and Drug Administration. us Jigar Bello MD LAB BLOOD ORDERABLES Final Resul t Performing Organization Address [facility] Co de Phone Number [facility] [address] [place] [address] * Metanephrines,Fractionated, Plasma Free (11/05/2024 9:42 AM EDT) Normetanephrin e, Pl <25.0 0.0 - 210.1 pg/mL [facility] Metanephrine, Plasma <25.0 0.0 - 88.0 pg/mL [facility] Blood Venous blood / Unknown 11/05/2024 9:42 AM EDT 11/05/2024 Narrative [facility] - 11/15/2024 12:06 PM EDT Test(s) 052715-Cxmixhxeakqtsnk, Pl; 077341-Lhpdvlvglsed, Pl was developed and its performance characteristics determined by [facility]. It has not been cleared or approved by the Food and Drug Administration. Jigar Bello MD LAB BLOOD ORDERABLES Final Resul t Performing Organization Address [facility] de Phone Number [facility] [address] [place] [address] * Aldosterone (11/05/2024 9:42 AM EDT) Aldosterone 4.1 0.0 - 30.0 ng/dL [facility] Blood Venous blood / Unknown 11/05/2024 9:42 AM EDT 11/05/2024 Narrative [facility] - 11/15/2024 12:06 PM EDT Test(s) 990492-Schzibyglzr was developed and its performance characteristics determined by [facility]. It has not been cleared or approved by the Food and Drug Administration. Jigar Bello MD LAB BLOOD ORDERABLES Final Resul t Performing Organization Address [facility]/ZIP Co de Phone Number [facility] [place] [address] from Last 3 Months Insurance Medicaid [place] Care Teams Drum Operator Relationship Specialty Start Date End Date Soledad Ocasio MD [address] [place] [address] PCP - General Family Medicine 09/21/24
--- OUTSIDE RECORDS SUMMARY | 2025-01-19 15:35 | XMS_ITS | Encounter Summary ---
Author Organization [employer] Address [address] [facility] [address] [address] [place] [address] Care Team Providers Care Table Worker Name Role Phone Soledad Ocasio MD Primary Care Provider [phone] Encounter Details Date Type Department Care Team (Late st Contact Info) Description 12/22/2024 Orders Only [facility] [address] [place] [address] Provider, MD Ramona Social History Tobacco Use [...] Upcoming Encounters Date Type Department Care Team ([facility] st Contact Info) Description 03/18/2025 1:45 PM EST Office Visit [facility] MED & PEDS [address] [place] [address] Soledad Ocasio MD [address] [place] [address] documented as of this encounter Procedures Procedure [...] documented as of this encounter Care Teams Table Worker Relationship Specialty Start Date End Date Soledad Ocasio MD [address] [place] [address] PCP - General Family Medicine 08/07/22 documented as of this encounter
--- OUTSIDE RECORDS SUMMARY | 2025-01-19 15:35 | XMS_ITS | Clinical Summary ---
Author Organization [email or web address] Address [address] [facility] [address] [facility] [address] [place] [address] Care Team Providers Care Lard Renderer Name Role Phone Soledad Ocasio MD Primary Care Provider [phone] Allergies No known active allergies Medications * [...] lancets USE DIRECTED FOUR TIMES DAILY Active traZODone (Desyrel) 150 MG tabletIndicatio ns:Depression [...] in 24 hours. 9 tablet 2 Active chlorthalidone (Hygroton) 25 MG tablet TAKE 1 TABLET BY MOUTH DAILY 90 tablet 1 Active simethicone (Mylicon) 80 MG chewable tablet Chew 80 mg. 024 Active metoclopramide (Reglan) 10 MG tablet TAKE 1 TABLET BY MOUTH TWICE DAILY NEEDED FOR HEADACHE Active NIFEdipine XL (Procardia XL) 60 MG 24 hr tablet Take 60 mg by mouth Once per day. 025 2025 Active Tirzepatide-Awais ght Management (Zepbound) 10 MG/0.5ML solution auto-injector Inject 0.5 mL (10 mg) under the skin 1 (one) time per week. 2 mL 3 Active ondansetron (Zofran) 4 MG tablet Take 1 tablet (4 mg) by mouth every 8 (eight) hours if needed for nausea or vomiting. 40 tablet Active gabapentin (Neurontin) 800 MG tablet Take 1 tablet (800 mg) by mouth at bedtime. 90 tablet 1 Active gabapentin (Neurontin) 600 MG tabletIndicatio ns:Fibromyalgia Take 1 tablet (600 mg) by mouth 2 times daily. 180 tablet 1 Active Minoxidil (Minoxidil for Women) 5 % foam Apply 5 g topically Once per day. 200 g 2 Active amLODIPine (Norvasc) 10 MG tabletIndicatio ns:Primary hypertension Take 1 tablet (10 mg) by mouth Once per day. 90 tablet 3 025 2024 Discontinued(T herapy completed) ondansetron (Zofran) 4 MG tablet Take 1 tablet (4 mg) by mouth every 8 (eight) hours if needed for nausea or vomiting. 40 tablet 2024 Discontinued(R eorder (will not trigger notification to Pharmacy)) gabapentin (Neurontin) 300 MG capsuleIndicati ons:Fibromyalgi a Take 1 capsule (300 mg) by mouth 2 times daily. 60 capsule 2 025 2024 Discontinued(T herapy completed) gabapentin (Neurontin) 600 MG tabletIndicatio ns:Fibromyalgia Take 1 tablet (600 mg) by mouth at bedtime. 30 tablet 2 025 2024 Discontinued(R eorder (will not trigger notification to Pharmacy)) Tirzepatide-Awais ght Management (Zepbound) 7.5 MG/0.5ML solution auto-injector Inject 0.5 mL (7.5 mg) under the skin 1 (one) time per week. INJECT ONE PEN (=7.5 MG) SUBCUTANEOUSLY ONCE A WEEK 2 mL 3 025 2024 Discontinued(T herapy completed) Active Problems Patient Care Coordination No te Formatting of this note migh t be different from the original. C3/CM Debbie Mauricio RN Problem Noted Date Diagnosed Date Resistant [...] an autoimmune disorder. Plan: - Refer to bait painter for evaluation and treatment - Autoimmune [...] least 150 min/week of moderate intensity exercise. screen done and reviewed Care Gaps reviewed IZ reviewed and discussed w/ patient Updated/reviewed PMH, Surghx, Family Hx & Social Hx Assessment & Plan (09/16/2023 11:55 AM EDT): 38 y.o. 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 Reviewed what testing is required and will f./up with results. AMA (advanced maternal age) multigravida 35+ Personal history of gestational diabetes 024 History of gestational hypertension 0 09/10/2023 Medication exposure during first trimester of pr egnancy 09/10/2023 UTI in 09/10/2023 Alopecia 03/05/2023 Assessment & Plan (03/05/2023 4:29 PM EST): Areas of keratinization and thinning, she is very concern, will check labs and schedule [facility]. Diarrhea 01/28/2023 Assessment [...] of change PLAN: 1. Follow up with [facility]: Recommended for follow-up: patient will contact to schedule follow up 2. Patient goal is increase coping mechanisms 3. Behavioral Recommendations a. Deep breathing b. Task prioritizing c. Contacting the accomodation department at the [facility] Assessment & Plan (10/28/2022 1:27 PM EDT): [...] for treatment. PLAN: 1. Follow up with [facility]: Recommended for follow-up: 10/24/22 2. Patient goal [...] services for further evaluation. Gestational diabetes 09/02/2022 Severe obesity 09/02/2022 Assessment & Plan (09/16/2024 3:34 PM [...] recommended reduction of 20-30% of maintenance calories; chocolate packer referral offered. Recommended to decrease soda and [...] recommended reduction of 20-30% of maintenance calories; chocolate packer referral offered. Recommended to decrease soda and [...] AM EST): Started to be seen by police commissioner in office, he continues her mood stabilizer & SGA and added trazodone to regimen, next appt in 2 weeks. Followup per psych recs. Future Appointments Date Time Provider Department Center 04/30/2024 10:45 AM Soledad Ocasio MD [facility] 05/13/2024 4:00 PM Os[facility] Guidry [facility] 05/20/2024 9:00 AM Fahad Agrawal MD [facility] Assessment & Plan (04/15/2024 11:07 AM EST): [...] organization. Date Type Department Care Team Description 01/19/2025 11:30 AM EDT Office Visit [facility] MED & PEDS [address] [place] [address] Soledad Ocasio MD Alopecia (Primary Dx); Fibromyalgia 01/19/2025 Travel 12/22/2024 Orders Only [facility] Information Management [address] [place] [address] [phone] ProviderRamona MD 12/15/2024 Refill [facility] MED & PEDS [address] [place] [address] Soledad Ocasio MD Hypertension, unspecified type 12/15/2024 Refill [facility] MED & PEDS [address] [place] [address] Soledad Ocasio MD 12/15/2024 Refill [facility] MED & PEDS [address] [place] [address] Soledad Ocasio MD 12/13/2024 Orders Only [facility] External Provider, [facility] 12/03/2024 1:45 PM EDT Office Visit [facility] MED & PEDS [address] [place] [address] Soledad Ocasio MD Fibromyalgia (Primary Dx); Intractable chronic migraine with aura and without status migrainosus 12/03/2024 Travel 11/22/2024 Telephone [facility] MED & PEDS [address] [place] [address] Soledad Ocasio MD Referral 11/17/2024 Telephone [facility] MEDIC[facility] [address] [place] [address] [phone] Soledad Ocasio MD Care Management ([facility] Graduation) 11/05/2024 3:00 PM EDT Telemedicine [facility] MED & PEDS [address] [place] [address] Nicole Ramsey PharmD Resistant hypertension (Primary Dx); Primary hypertension 11/05/2024 Travel 11/04/2024 Travel 10/22/2024 Travel 10/21/2024 Telephone [facility] [address] [place] [address] Soledad Ocasio MD Care Management ([facility] TC #1-lvm) 10/20/2024 Travel 10/19/2024 Telephone [facility] [address] [place], [place] [phone] Soledad Ocasio MD Appointment Request 10/19/2024 Travel [...] Mass Index 38.08 01/19/2025 11:50 AM EDT Plan of Treatment Upcoming Encounters Date Type Department Care Team ([facility] st Contact Info) Description 03/18/2025 1:45 PM EST Office Visit [facility] MED & PEDS [address] [place] [address] Soledad Ocasio MD [address] [place] [address] Health Maintenance Due Date Last Done Comments [...] 06/17/19 SDOH Screening 06/17/2025 06/17/2024 Tobacco Screening 01/19/2026 01/19/2025 Cervical Cancer Screening 07/15/2026 HPV/Cotest 07/15/2026 07/16/2023, 052 06/2022, 09/18/2017 Pap Smear 07/15/2026 07/16/2023, 09/17/2022 Lipid [...] Routine 01/19/2025 1 :14 PM EDT Alopecia IRON AND TOTAL IRON BINDING CAPACITY Routine 01/19/2025 1:14 PM EDT Alopecia CBC WITH AUTO DIFFERENTIAL Routine 01/19/2025 1:14 PM EDT Alopecia VASC US ABDOMINAL/PELVIC DUPLEX COMPLETE Routine 12/21/2024 [...] Recently Relevant to Health Maintenance Results * (ABNORMAL) Vitamin D, 25-Hydroxy, Total, Immunoassay (01/19/2025 1:14 PM EDT) Vitamin D 25-OH Total 20.4(L) >30 ng/mL [facility] Comment: Health Based Reference Values*< 20 ng/mL Zahfptnoo24-92 ng/mL Insufficient> 30 ng/mL Sufficient*Henna RODRIGUEZ. N [...] MD LAB BLOOD ORDERABLES Final Re sult [facility] [address] [place] [address] [place] [phone] * TSH W/Reflex to FT4 (01/19/2025 1:14 PM EDT) Pathologist [facility] TSH reflex Free T4 0.87 0.32 - 4.0 uIU/mL [facility] Blood Venous blood specimen / Unknown 01/19/2025 1:14 PM EDT 01/19/2025 2:35 PM EDT us Soledad Ocasio MD LAB BLOOD ORDERABLES Final Re sult [facility] [address] [place] [address] [phone] * (ABNORMAL) CBC auto differential (01/19/2025 1:14 PM EDT) Pathologist [facility] White Blood Count 10.8 4.8 - 10.8 X10*3/uL [facility] Red Blood Count 4.40 4.20 - 5.50 X10*6/uL [facility] Hemoglobin 11.6(L) 12.0 - 16.0 g/dl [facility] Hematocrit 36.8(L) 37.0 - 47.0 % [facility] Mean Corpuscular Volume 83.6 80.0 - 98.0 fL [facility] Mean Corpuscular Hemoglobin 26.4(L) 27.0 - 33.0 pg [facility] Mean Corpuscular HGB Conc 31.5 31.0 - 35.0 g/dl [facility] Red Cell Distribution Width 13.7 11.0 - 16.0 % [facility] Platelet Count 341 160 - 400 X10*3/uL [facility] Mean Platelet Volume 10.5 9.4 - 12.3 fL [facility] Neutrophils Percent Auto 69.7 45 - 73 % [facility] Imm Gran Pct Auto 0.5(H) 0.0 - 0.4 % [facility] Lymphocytes Percent Auto 23.5 20 - 40 % [facility] Monocytes Percent Auto 4.4 2 - 11 % [facility] Eosinophils Percent Auto 1.5 0 - 4 % [facility] Basophils Percent Auto 0.4 0 - 2 % [facility] NRBC Pct Auto 0.0 0.0 - 0.2 /100WBC [facility] Neutrophils Absolute Auto 7.6 2.0 - 8.3 x10*3/uL [facility] Imm Gran Abs Auto 0.05(H) 0.00 - 0.03 X10*3/uL [facility] Lymphocytes Absolute Auto 2.5 1.2 - 4.9 X10*3/uL [facility] Monocytes Absolute Auto 0.5 0.1 - 1.2 X10*3/uL [facility] Eosinophils Absolute Auto 0.2 0.0 - 0.4 X10*3/uL [facility] Basophils Absolute Auto 0.0 0.0 - 0.2 X10*3/uL [facility] NRBC Abs Auto 0.000 0.0 - 0.012 X10*3/uL [facility] Blood Venous blood specimen / Unknown 01/19/2025 1:14 PM EDT 01/19/2025 2:28 PM EDT us Soledad Ocasio MD LAB BLOOD ORDERABLES Final Re sult [facility] [address] [place] [phone] * (ABNORMAL) Iron And Total Iron Binding Capacity (01/19/2025 1:14 PM EDT) Iron 33 30 - 160 mcg/dL [facility] Total Iron Binding Capacity 272 228 - 428 mcg/dL [facility] Percent Iron Saturation 12(L) 15 - 50 % [facility] Unsaturated Iron Binding 239 ug/dL [facility] Blood Venous blood specimen / Unknown 01/19/2025 1:14 PM EDT 01/19/2025 2:35 PM EDT Soledad Ocasio MD LAB BLOOD ORDERABLES Final Re sult [facility] [address] [place] [phone] * [facility] US Abdominal pelvic Duplex Complete (12/21/2024 11:46 AM EDT) Historical Provider MD CV VASCULAR PROCEDURES Fi nal Result * MR Knee w/o Contrast Left (12/13/2024 8:00 PM EDT) Anatomical Region Laterality Modality Magnetic Resonan ce 12/13/2024 8:00 PM EDT Narrative 12/14/2024 7:14 AM EDT [address] [address] Magnetic Resonance Report Signed Patient: Qing Ackerman MR#: [id number] : 1985 Acct:[id number] Age/Sex: 39 / F ADM Date: 12/13/24 Loc: HO.MRI Attending Dr: Jeff Romo MD Ordering Physician: Jeff Romo MD Date of Service: 12/13/24 Procedure(s): MR knee LT wo con Accession Number(s): [id number] cc: Jeff Romo MD; Soledad Ocasio MD [...] by Cristobal Burns MD in OV> 12/14/24 0711 DD/ 99 TD/TT: 12/13/242012 Deburrer: Procedure Note Donotuseinterpreter, Image - 12/14/2024 [place] [address] Magnetic Resonance Report Signed Patient: Brittany Ackerman#: [id number] : 1985Acct:[id number] Age/Sex: 39 / FADM Date: 12/13/24 Loc: HO.MRI Attending Dr: Jeff Romo MD Ordering Physician: Jeff Romo MD Date of Service: 12/13/24 Procedure(s): MR knee LT wo con Accession Number(s): [id number] cc: Jeff Romo MD; Soledad Ocasio MD [...] OV> 12/14/24 07 DD/ 99 TD/TT: 12/13/242012 Deburrer: [facility] External Provider IMG MRI PROCEDURES Edited Result - Final * Hemoglobin A1c (04/15/2024 1:41 PM EST) Hemoglobin A1c 5.9 <6.0 % [facility] Comment:Hemoglobin A1C Refer ence Range Adults: 4.8 - 6.0 % Non diabetic: < 6.0 % Goal: < 7.0 %Additional Action Suggested: > 8.0 %Note: Hemoglobin A1c results are invalid for patients with abnormal amounts of HbF. Blood transfusions may impact the HbA1c concentration in the patient sample. Estimated Average Glucose 123 mg/dL [facility] Comment:eAG = Estimated ave rage glucose which is %A1C expressed asaverage glucose, using the formula of the U2L-NauyrngDzyqmij Glucose study (ADAG), Diabetes Care, Vol.31,#8,Nov. 2007 Blood Venous blood specimen / Unknown 04/15/2024 1:41 PM EST 04/15/2024 2:22 PM EST Soledad Ocasio MD LAB BLOOD ORDERABLES Final Re sult [facility] [address] [place] [address] [phone] * (ABNORMAL) Lipid Panel, Standard (04/15/2024 1:41 PM EST) Triglycerides 102 <150 mg/dL [facility] Comment:Desirable Triglyceri de: less than 150 mg/dLBorderline High Triglyceride 150-199 mg/dLHigh Triglyceride: 200-499 mg/dLVery High Triglyceride: greater than or equal to 5OO mg/dL Cholesterol 123 <200 mg/dL [facility] Comment:Desirable Cholestero l: less than 200 mg/dLBorderline High Cholesterol: 200-239 mg/dLHigh Cholesterol: greater than 239 mg/dL LDL Cholesterol Calculated 68 <100 mg/dL [facility] Comment:Desirable LDL: less than 100 mg/dLNear Optimal/Above Optimal LDL: 110- 129 mg/dLBorderline High LDL: 130-159 mg/dLHigh LDL: 160-189 mg/dLVery High LDL: greater than or equal to 190 mg/dL HDL Cholesterol 35(L) >40 mg/dL [facility] Comment:Desirable HDL: great er than 40 mg/dL Note: This HDL assay may give artificially low results in patients with liver disease. Blood Venous blood specimen / Unknown 04/15/2024 1:41 PM EST 04/15/2024 2:22 PM EST Soleadd Ocasio MD LAB BLOOD ORDERABLES Final Re sult [facility] [address] [place] [address] [phone] * HM PAP/HPV (07/16/2023 12:00 AM EDT) Pap Smear 1. NILM 1. NILM [facility] HPV Not Detected Undetected, Indeterminat e, Quantitative , Not Detected [facility] Historical Provider HEALTH MAINTENANCE Edited Result - Final [facility] [address] [place] [address] * Hepatitis C Antibody with Reflex to HCV, RNA, Quantitative, Real-Time PCR (09/02/2022 11:51 AM EDT) Hepatitis C Antibody NON-REACT JACKIE NON-REACT JACKIE [employer] Mediat Index 0.09 <1.00 [employer] Comment: HCV antibody was non-reactive. There is no laboratory evidence of HCV infection. In most cases, no further action is required. However, if recent HCV exposure is suspected, a test for HCV RNA (test code 95754) is suggested. For additional information please refer to http://[email or web address]/faq/[email or web address] (This link is being provided for informational/ educational purposes only.) Blood Venous blood specimen / Unknown 09/02/2022 11:51 AM EDT 09/02/2022 11:52 AM EDT us Soledad Ocasio MD LAB BLOOD ORDERABLES Final Re sult [facility] [address], [place] [address] [employer] [address] [place] [address] * HIV-1/2 Antigen and Antibodies, Fourth Generation, with Reflexes (09/02/2022 11:51 AM EDT) Pathologist [facility] HIV Antigen/Antibody, 4th Generation NON-REAC TIVE NON-REAC TIVE [employer] Comment: HIV-1 antigen and HIV-1/HIV-2 antibodies were [...] purpose. For additional information please refer to http://[email or web address]/faq/QTR981 (This link is being provided for informational/ educational purposes only.) The performance of this assay has not been clinically validated in patients less than 2 years old. Blood Venous blood specimen / Unknown 09/02/2022 11:51 AM EDT 09/02/2022 11:52 AM EDT Soledad Ocasio MD LAB BLOOD ORDERABLES Final Re sult [facility] [address], [place] [address] [employer] [facility] [address] [place] [phone] from Last 3 Months or Most Recently Relevant to Health Maintenance Insurance C3 Care Teams Lard Renderer Relationship Specialty Start Date End Date Soledad Ocasio MD [address] [place] [phone] PCP - General Family Medicine 08/07/22
--- OUTSIDE RECORDS SUMMARY | 2025-01-19 15:35 | XMS_ITS | Encounter Summary ---
Author Organization [employer] Address [address] [place] [address] Care Team Providers Care Steel Pourer Helper Name Role Phone Soledad Ocasio MD Primary Care Provider [phone] Nicole Ramsey PharmD Unavailable [phone] Reason for Visit * Reason Onset Date Comments Nurse Triage 04/13/2024 Encounter Details Date Type Department Care Team ([facility] st Contact Info) Description 04/13/2024 Telephone [facility] CHC MED & PEDS [address] [place], [place] [phone] Soledad Ocasio MD [address] [place] [address] Nurse Triage Social History Tobacco Use Types [...] Not at all 04/15/2024 9:50 AM Azul Jean [place] documented as of this encounter Miscellaneous Notes * Telephone Encounter - Pilar Guevara LPN - 04/13/2024 2:02 PM EST Triage call returned to patient who is very upset, crying. Patient is having ongoing back pain thatradiates into both legs is unable to control pain has been to the ED [facility] to [facility] [...] 1:45 PM EST Office Visit [facility] MED & PEDS [address] [place] [address] Soledad Ocasio MD [address] [place] [address] documented as of this encounter Visit Diagnoses Not on filedocumented in this encounter Additional Health Concerns Assessment Noted Time PHQ-9 Depression Total Score: 17 023 11:47 AM EDT documented as of this encounter Care Teams Steel Pourer Helper Relationship Specialty Start Date End Date Soledad Ocasio MD [address] [place] [address] PCP - General Family Medicine 08/07/22 Nicole Ramsey PharmD [address] [place] [address] Pharmacist Internal Medicine 07/07/24 11/06/24 documented as of this encounter
--- OUTSIDE RECORDS SUMMARY | 2025-01-19 15:35 | XMS_ITS | Encounter Summary ---
Author Organization [employer] [facility] Address [address] [facility] 7[address] [place] [address] Care Team Providers Care Supervisor Industrial Arts Education Name Role Phone Soledad Ocasio MD Primary Care Provider [phone] Nicole Ramsey PharmD Unavailable [phone] Encounter Details Date Type Department Care Team (Late st Contact Info) Description 04/11/2022 Orders Only [facility] MED [facility] PEDS [address] [place] [address] Katie Aguilar LPN Social History Tobacco Use [...] Description 03/18/2025 1:45 PM EST Office Visit [facility] MED & PEDS [address] [place] [address] Soledad Ocasio MD [address] [place] [address] documented as of this encounter Visit Diagnoses Not on filedocumented in this encounter Care Teams Supervisor Industrial Arts Education Relationship Specialty Start Date End Date Soledad Ocasio MD [address] [place] [address] PCP - General Family Medicine 08/07/22 Nicole Ramsey, PharmD [address] [place] [address] Pharmacist Internal Medicine 07/07/24 11/06/24 documented as of this encounter
== END 2025-01-19 13:13 | disposition home or self-care (01) ==
LOC: HO.CHCLDS 13:12
PROVIDERS: Visit Provider Family Medicine
DX: L65.9 Nonscarring hair loss, unspecified (principal)
CPT/HCPCS: 36415; 82306; 83540; 84443; 85025

== ENCOUNTER 2025-02-09 09:36 | Outpatient (AMB) | payer MEDICAID, SELFPAY ==
--- NOTE | 2025-02-09 09:41 | A.OFFVIS_ITS ---
Intake Visit Reasons: INJ- Left Knee Durolane INJ, Right knee pain, Left knee pain Intake Note: Qing is a 39 year old female who presents with complaints of bilateral knee pains. She describes her pains as sharp in nature. She has failed the last 3 months of conservative treatment which has included Tylenol, gabapentin, anti- inflammatory medicines, a home exercise program and physical therapy exercises. She has had cortisone injections in the past. The most recent cortisone injection gave her minimal relief. At this point her bilateral knee pains are interfering with her activities of daily living and her ability to sleep through the night. She wishes to hold off on surgery if at all possible. Allergies acetaminophen (From Percocet) Allergy (Unknown, Verified 01/12/25 12:45) Hives oxycodone (From Percocet) Allergy (Unknown, Verified 01/12/25 12:45) Hives Medication List - Last Reconciled 02/09/25 by Jeff Romo MD albuterol sulfate 90 mcg/actuation (Ventolin HFA) 2 puffs inhalation Q6H PRN amlodipine 10 mg PO DAILY aripiprazole 15 mg PO DAILY atenolol 50 mg PO DAILY [id number]-ejzcdtxbrz-fgv-cod [id number] mg 2 caps PO Q4H PRN chlorthalidone 25 mg PO DAILY divalproex 500 mg PO BID duloxetine 20 mg PO BID famotidine 20 mg PO DAILY ferrous gluconate 324 mg PO DAILY fluticasone propionate 50 mcg/actuation (Allergy Relief (fluticasone)) 1 spray intranasal DAILY gabapentin 300 mg PO BID 30 days hydralazine 10 mg PO TID levonorgestrel (Liletta) intrauterine lidocaine 5% 1 patch topical DAILY losartan 100 mg PO DAILY rizatriptan take 1 tab at onset of headache; if no relief may repeat 1 tab after at least 2 hrs; max = 3 tabs/24 hr PO tirzepatide (weight loss) (Zepbound) 7.5 mg subcut QWEEK trazodone 150 mg PO BEDTIME PRN PFSH Medical History (Updated 02/09/25 @ 09:59 by Jeff Romo MD) Morbid obesity with BMI of 40.0-44.9, adult Chronic pain syndrome Polyarthralgia Anemia Hypertension Migraine Social History Patient Tobacco Use Status: Never used Tobacco Physical Exam Const Other: Well-nourished well-developed very friendly female awake alert and oriented x3 in no acute distress Extrem Other: Bilateral knee examination shows minimal effusions, palpable crepitus with range of motion, pain with range of motion, no instability Office Procedures AMB Joint Injection/Aspiration Joint Injection/Aspiration Primary Site: left knee Prep: site was prepped using aseptic technique Injected: 60 mg of (Durolane viscosupplementation) and 1% plain lidocaine Procedure: The patient tolerated the procedure well Coding - Large joint Procedure code (CPT) selection complete Results Reviewed Results Reviewed: X-rays of the patient's bilateral knees taken previously show joint space n arrowing, subchondral sclerosis, no acute bony abnormalities Assessment & Plan Assessment & Plan (1) Osteoarthritis of left knee: Code(s): M17.12 - Unilateral primary osteoarthritis, left knee Category: Medical (2) Osteoarthritis of right knee: Code(s): M17.11 - Unilateral primary osteoarthritis, right knee Category: Medical (3) Right knee pain: Code(s): M25.561 - Pain in right knee (4) Left knee pain: Code(s): M25.562 - Pain in left knee Plan Ms. Ackerman presents with bilateral knee pains due to osteoarthritis. The risks and benefits of a left knee Durolane viscosupplementation injection were discussed at length with the patient. The patient wished to proceed. She tolerated the left knee injection well. I will also see if the patient's insurance company will cover a right knee Durolane injection. I will see her back once the right knee viscosupplementation injection is available. Feel free to call me at any time should questions regarding her orthopedic management arise. I spent 21 minutes in reviewing the patient's records and imaging studies, seeing the patient and documenting in the medical record. Orders: Orders AMB Joint Injection/Aspiration Today M17.12 - Unilateral primary osteoarthritis, left knee Coding Level of Care Code Est Pt Level 3 (15816) Complex EM visit Add On G2211 Diagnoses Osteoarthritis of left knee M17.12 Osteoarthritis of right knee M17.11 Right knee pain M25.561 Left knee pain M25.562 CPT Codes Coding - Large joint: 60353 - Large joint ([id number])
--- OUTSIDE RECORDS SUMMARY | 2025-02-09 10:59 | XMS_ITS | Encounter Summary ---
Author Organization [employer] Address [address] [facility] 7t [place] [address] Care Team Providers Care Information Consultant Name Role Phone Soledad Ocasio MD Primary Care Provider [phone] Encounter Details Date Type Department Care Team (Late st Contact Info) Description 12/22/2024 Orders Only [facility] [address] [place] [address] Provider, MD Ramona Social History Tobacco Use [...] Upcoming Encounters Date Type Department Care Team ([facility] st Contact Info) Description 03/18/2025 1:45 PM EST Office Visit [facility] MED & PEDS [address] [place] [address] Soledad Ocasio MD [address] [place] [address] documented as of this encounter Procedures Procedure [...] documented as of this encounter Care Teams Information Consultant Relationship Specialty Start Date End Date Soledad Ocasio MD [address] [place] [address] PCP - General Family Medicine 08/07/22 documented as of this encounter
--- OUTSIDE RECORDS SUMMARY | 2025-02-09 10:59 | XMS_ITS | Encounter Summary ---
Author Organization [employer] [facility] Address [address] [facility] 7t [place] [address] Care Team Providers Care Insert Cutter Name Role Phone Soledad Ocasio MD Primary Care Provider [phone] Nicole Ramsey PharmD Unavailable [phone] Encounter Details Date Type Department Care Team (Late st Contact Info) Description 04/11/2022 Orders Only [facility] MED & PEDS [address] [place] [address] Katie Aguilar LPN Social History Tobacco Use [...] 03/18/2025 1:45 PM EST Office Visit [facility] MED & PEDS [address] [place] [address] Soledad Ocasio MD [address] [place] [address] documented as of this encounter Visit Diagnoses Not on filedocumented in this encounter Care Teams Insert Cutter Relationship Specialty Start Date End Date Soledad Ocasio MD [address] [place] [address] PCP - General Family Medicine 08/07/22 Nicole Ramsey, PharmD [address] [place] [address] Pharmacist Internal Medicine 07/07/24 11/06/24 documented as of this encounter
--- OUTSIDE RECORDS SUMMARY | 2025-02-09 10:59 | XMS_ITS | Encounter Summary ---
Author Organization [employer] Address [address] [address] [place] [address] Care Team Providers Care Medical Detail Representative Name Role Phone Soledad Ocasio MD Primary Care Provider [phone] Reason for Visit * Reason Onset Date Comments Med Refill 02/09/2025 Encounter Details Date Type Department Care Team ([facility] st Contact Info) Description 02/09/2025 Refill [facility] MEDICINE [address] [place] [address] Soledad Ocasio MD [address] [place] [address] Fibromyalgia Social History Tobacco Use Types Packs/Day [...] encounter Miscellaneous Notes * Telephone Encounter - Katie Aguilar LPN - 02/09/2025 10:50 AM EDT COMMUNITY RELATIONS OFFICER checked on 02/09/25. Gabapentin 800 mg sold on 01/26/25 #30. Gabapentin 600 mg last sold on 01/11/25 #30. * Telephone Encounter - Beatriz Alberto - 02/09/2025 10:29 AM EDT TC from pt requesting medication refill. Medications needing refill : - gabapentin (Neurontin) 600 MG tablet - gabapentin (Neurontin) 800 MG tablet To be sent to: - [id number] - [place], [place] - [address] Tc from pt stating that the pharmacy advised her they never received the medication. documented in this encounter Plan of Treatment Upcoming Encounters Date Type Department Care Team (Late st Contact Info) Description 03/18/2025 1:45 PM EST Office Visit [facility] MED & PEDS [address] [place] [address] Soledad Ocasio MD [address] [place] [address] documented as of this encounter Visit Diagnoses Diagnosis Fibromyalgia Unspecified myalgia and myositis documented in this encounter Additional Health Concerns Assessment Noted Time PHQ-9 Depression Total Score: 0 06/17/19 25 1:39 PM EST documented as of this encounter Care Teams Medical Detail Representative Relationship Specialty Start Date End Date Soledad Ocasio MD [address] [place] [address] PCP - General Family Medicine 08/07/22 documented as of this encounter
--- OUTSIDE RECORDS SUMMARY | 2025-02-09 10:59 | XMS_ITS | Encounter Summary ---
Author Organization [employer] Address [address] [place] [address] Care Team Providers Care Metal Ceiling Builder Name Role Phone Soledad Ocasio MD Primary Care Provider [phone] Reason for Visit * Reason Comments Med Refill Encounter Details Date Type Department Care Team ([facility] st Contact Info) Description 12/15/2024 Refill [facility] MED & PEDS [address] [place], [place] [phone] Soledad Ocasio MD [address] [place] [address] Hypertension, unspecified type Social History Tobacco Use [...] 03/18/2025 1:45 PM EST Office Visit [facility] MED & PEDS [address] [place] [address] Soledad Ocasio MD [address] [place] [address] documented as of this encounter Visit Diagnoses Diagnosis Hypertension, unspecified type documented in this encounter Additional Health Concerns Assessment Noted Time PHQ-9 Depression Total Score: 0 06/17/19 25 1:39 PM EST documented as of this encounter Care Teams Metal Ceiling Builder Relationship Specialty Start Date End Date Soledad Ocasio MD [address] [place] [address] PCP - General Family Medicine 08/07/22 documented as of this encounter
--- OUTSIDE RECORDS SUMMARY | 2025-02-09 10:59 | XMS_ITS | Encounter Summary ---
Author Organization [employer] Address [address] [facility] 7 [place] [address] Care Team Providers Care Staff Electronic Warfare Officer Name Role Phone Soledad Ocasio MD Primary Care Provider [phone] Nicole Ramsey PharmD Unavailable [phone] Encounter Details Date Type Department Care Team ([facility] Contact Info) Description 05/26/2022 Orders Only [facility] MEDICINE [address] [place], [place] [phone] Billy Muñiz MD [address] [place], [place] [phone] Major depressive disorder, remission status unspecified, unspecified [...] Description 03/18/2025 1:45 PM EST Office Visit [facility] CHC MED & PEDS [address] [place], [place] [phone] Soledad Ocasio MD [address] [place], [place] [phone] documented as of this encounter Visit Diagnoses Diagnosis Major depressive disorder, remission status unspecified, unspecified whether recurrent- Primary documented in this encounter Care Teams Staff Electronic Warfare Officer Relationship Specialty Start Date End Date Soledad Ocasio MD [address] [place] [address] PCP - General Family Medicine 08/07/22 Nicole Ramsey PharmD [address] [place] [address] Pharmacist Internal Medicine 07/07/24 11/06/24 documented as of this encounter
--- OUTSIDE RECORDS SUMMARY | 2025-02-09 10:59 | XMS_ITS | Encounter Summary ---
Author Organization [employer] Address [address] [facility] [address] [place] [address] Care Team Providers Care Guest Room Attendant Name Role Phone Soledad Ocasio MD Primary Care Provider [phone] Nicole Rasmey PharmD Unavailable [phone] Encounter Details Date Type Department Care Team (Late st Contact Info) Description 07/07/2024 Orders Only [facility] MEDICINE [address] [place], [place] [phone] Sona Mccarthy MD [address] [place], [place] [phone] Social History Tobacco Use Types Packs/Day Years [...] Description 03/18/2025 1:45 PM EST Office Visit [facility] MED & PEDS [address] [place] [address] Soledad Ocasio MD [address] [place] [address] documented as of this encounter Visit Diagnoses Not on filedocumented in this encounter Additional Health Concerns Assessment Noted Time PHQ-9 Depression Total Score: 0 06/17/19 1:39 PM EST documented as of this encounter Care Teams Guest Room Attendant Relationship Specialty Start Date End Date Soledad Ocasio MD [address] [place] [address] PCP - General Family Medicine 08/07/22 Nicole Ramsey PharmD [address] [place] [address] Pharmacist Internal Medicine 07/07/24 11/06/24 documented as of this encounter
--- OUTSIDE RECORDS SUMMARY | 2025-02-09 10:59 | XMS_ITS | Encounter Summary ---
Author Organization [employer] Address [address] [facility] [address] [place] [address] Care Team Providers Care Case Worker Name Role Phone Soledad Ocasio MD Primary Care Provider [phone] Nicole Ramsey PharmD Unavailable [phone] Reason for Visit * Reason Onset Date Comments Nurse Triage 04/13/2024 Encounter Details Date Type Department Care Team ([facility] st Contact Info) Description 04/13/2024 Telephone [facility] CHC MED & PEDS [address] [place], [place] [phone] Soledad Ocasio MD [address] [place] [address] Nurse Triage Social History Tobacco Use Types [...] [facility] [...] Description 03/18/2025 1:45 PM EST Office Visit [facility] MED & PEDS [address] [place] [address] Soledad Ocasio MD [address] [place] [address] documented as of this encounter Visit Diagnoses Not on filedocumented in this encounter Additional Health Concerns Assessment Noted Time PHQ-9 Depression Total Score: 17 023 11:47 AM EDT documented as of this encounter Care Teams Case Worker Relationship Specialty Start Date End Date Soledad Ocasio MD [address] [place] [address] PCP - General Family Medicine 08/07/22 Nicole Ramsey PharmD [address] [place] [address] Pharmacist Internal Medicine 07/07/24 11/06/24 documented as of this encounter
--- OUTSIDE RECORDS SUMMARY | 2025-02-09 10:59 | XMS_ITS | Clinical Summary ---
Author Organization [facility] Address [address] [place] [address] Phone Care Team Providers Care Roller Hand Name Role Phone Barbara Cabrera MD Primary Care Provider [phone] Encounters Date Type Department Care Team Description 12/21/2024 12:45 PM EDT - 12/21/2024 11:59 PM EDT Hospital Encounter [facility] Ultrasound [address] [place] [address] Resistant hypertension Discharge Disposition: Home [...] no evidence of renal artery stenosis. Code 09551, 40946 -------- FINAL REPORT -------- Dictated By: Ruiz Gallegos Dictated Date: 12/22/2024 09:26 ET Assigned Physician: Ruiz Gallegos Reviewed and Electronically Signed By: Ruiz Gallegos Signed Date: 12/22/2024 09:29 ET Workstation ID: [id number] Transcribed By: Self Edit Transcribed Date: 12/22/2024 [...] demonstrates no evidence ofrenal artery stenosis. Code 65570, 28618 -------- FINAL REPORT -------- Dictated By: Ruiz Gallegos Dictated Date: 12/22/2024 09:26 ET Assigned Physician: Ruiz Gallegos Reviewed and Electronically Signed By: Ruiz Gallegos Signed Date: 12/22/2024 09:29 ET Workstation ID: [id number] Transcribed By: Self Edit Transcribed Date: 12/22/2024 09:26 ET us Jigar Bello MD IMG US PROCEDURES Final Result from Last 3 Months Insurance MEDICAID - [place] Care Teams Roller Hand Relationship Specialty Start Date End Date Barbara Cabrera MD [address] [place] [address] PCP - General Internal Medicine 02/08/19
--- OUTSIDE RECORDS SUMMARY | 2025-02-09 10:59 | XMS_ITS | Encounter Summary ---
Author Organization [employer] Address [address] [place] [address] Care Team Providers Care Orange Picking Supervisor Name Role Phone Soledad Ocasio MD Primary Care Provider Nicole Ramsey PharmD Unavailable [phone] Reason for Visit * Reason Comments Med Refill Encounter Details Date Type Department Care Team ([facility] st Contact Info) Description 05/28/2024 Refill [facility] CHC MED & PEDS [address] [place], [place] [phone] Soledad Ocasio MD [address] [place] [address] Mood disorder (CMS/HCC) Social History Tobacco Use [...] Upcoming Encounters Date Type Department Care Team ([facility] st Contact Info) Description 03/18/2025 1:45 PM EST Office Visit [facility] MED & PEDS [address] [place] [address] Soledad Ocasio MD [address] [place] [address] documented as of this encounter Visit Diagnoses Diagnosis Mood disorder (CMS/HCC) Unspecified episodic mood disorder documented in this encounter Additional Health Concerns Assessment Noted Time PHQ-9 Depression Total Score: 15 025 9:18 AM EST documented as of this encounter Care Teams Orange Picking Supervisor Relationship Specialty Start Date End Date Soledad Ocasio MD [address] [place] [address] PCP - General Family Medicine 08/07/22 Nicole Ramsey PharmD [address] [place] [address] Pharmacist Internal Medicine 07/07/24 11/06/24 documented as of this encounter
--- OUTSIDE RECORDS SUMMARY | 2025-02-09 10:59 | XMS_ITS | Clinical Summary ---
Author Organization [employer] Address [address] [facility] [address] [place] [address] Care Team Providers Care Inspector Balance Wheel Motion Name Role Phone Soledad Ocasio MD Primary Care Provider [phone] Allergies No known active allergies Medications * [...] MCG/DAY intrauterine device by Intrauterine route. Active DULoxetine (Cymbalta) [address] capsuleIndicati ons:Low back pain at multiple sites Take 1 capsule (20 mg) by mouth 2 times daily. Do not crush or chew. 60 capsule 11 025 2025 Active atenolol (Tenormin) 50 MG tabletIndicatio ns:Primary hypertension Take 1 tablet (50 mg) by mouth Once per day. 30 tablet 11 02/17/06 Active Alcohol Swabs (Alcohol Prep) 70 % [...] tablet by mouth Once per day. Active losartan (Cozaar) 100 MG tabletIndicatio ns:Hypertension [...] 80 MG chewable tablet Chew 80 mg. 09/02/2 024 Active metoclopramide (Reglan) 10 MG tablet [...] by mouth at bedtime. 90 tablet 1 025 Active gabapentin (Neurontin) 600 MG tabletIndicatio ns:Fibromyalgia Take 1 tablet (600 mg) by mouth 2 times daily. 180 tablet 1 025 Active Minoxidil (Minoxidil for Women) 5 % foam Apply 5 g topically Once per day. 200 g 2 025 Active cholecalciferol (Vitamin D-3) 50 MCG (2000 UT) capsule Take 1 capsule (50 mcg) by mouth Once per day. 90 capsule 1 Active ferrous gluconate (Fergon) 324 (38 Fe) MG tablet Take 1 tablet (324 mg) by mouth with breakfast. 90 tablet 1 025 Active lidocaine (Lidoderm) 5 % patchIndication s:Low back pain at multiple sites APPLY ONE PATCH TOPICALLY ONCE PER DAY. REMOVE AND DISCARD WITHIN 12 HOURS OR DIRECTED BY MD 30 patch 3 Active lidocaine (Lidoderm) 5 % patchIndication s:Low back pain at multiple sites Apply 1 patch topically Once per day. Remove & discard patch within 12 hours or as directed by . 30 patch 3 024 2024 Discontinued amLODIPine (Norvasc) 10 MG tabletIndicatio ns:Primary hypertension Take 1 tablet (10 mg) by mouth Once per day. 90 tablet 3 025 2024 Discontinued(T herapy completed) ferrous sulfate 325 (65 Fe) MG EC tablet 2024 Discontinued(S giuliano effects) ondansetron (Zofran) 4 MG tablet Take 1 tablet (4 mg) by mouth every 8 (eight) hours if needed for nausea or vomiting. 40 tablet 025 2024 Discontinued(R eorder (will not trigger notification to Pharmacy)) gabapentin (Neurontin) 300 MG capsuleIndicati ons:Fibromyalgi a Take 1 capsule (300 mg) by mouth 2 times daily. 60 capsule 2 025 2024 Discontinued(T herapy completed) gabapentin (Neurontin) 600 MG tabletIndicatio ns:Fibromyalgia Take 1 tablet (600 mg) by mouth at bedtime. 30 tablet 2 2024 Discontinued(R eorder (will not trigger notification to Pharmacy)) Tirzepatide-Awais ght Management (Zepbound) 7.5 MG/0.5ML solution auto-injector Inject 0.5 mL (7.5 mg) under the skin 1 (one) time per week. INJECT ONE PEN (=7.5 MG) SUBCUTANEOUSLY ONCE A WEEK 2 mL 3 2024 Discontinued(T herapy completed) Active Problems Patient [...] an autoimmune disorder. Plan: - Refer to paint technician for evaluation and treatment - Autoimmune labs [...] will check labs and schedule apt with [facility] Derm clinic. Diarrhea 01/28/2023 Assessment & Plan [...] of change PLAN: 1. Follow up with [facility]: Recommended for follow-up: patient will contact to schedule follow up 2. Patient goal is increase coping mechanisms 3. Behavioral Recommendations a. Deep breathing b. Task prioritizing c. Contacting the accomodation department at the [facility] Assessment & Plan (10/28/2022 1:27 PM [...] for treatment. PLAN: 1. Follow up with [facility]: Recommended for follow-up: 10/24/22 2. Patient goal [...] further evaluation. Gestational diabetes 09/02/2022 Severe obesity (CMS/HCC) 09/02/2022 Assessment & Plan (09/16/2024 3:34 PM [...] recommended reduction of 20-30% of maintenance calories; bible teacher referral offered. Recommended to decrease soda and [...] recommended reduction of 20-30% of maintenance calories; bible teacher referral offered. Recommended to decrease soda and [...] AM EST): Started to be seen by utilities manager in office, he continues her mood stabilizer & SGA and added trazodone to regimen, next appt in 2 weeks. Followup per psych recs. Future Appointments Date Time Provider Department Center 04/30/2024 10:45 AM Soledad Ocasio MD [facility] 05/13/2024 4:00 PM Osito Guidry PMHNP [facility] 05/20/2024 9:00 AM Fahad Agrawal MD [facility] MED [facility] Assessment & Plan (04/15/2024 11:07 AM [...] Abnormal cervical Papanicolaou smear 05/15/2018 12/03/2024 Encounters Date Type Department Care Team Description 02/09/2025 Refill [facility] MEDICINE [address] [place] [phone] Soledad Ocasio MD Fibromyalgia 02/07/2025 Telephone [facility] MEDICINE [address] [place] [address] [phone] Soledad Ocasio MD 02/06/2025 Refill [facility] [address] [place], [place] [phone] Fahad Agrawal MD Low back pain at multiple sites 01/21/2025 Results Follow-Up [facility] [address] [place] [address] Soledad Ocasio MD CBC auto differential, Iron And Total Iron Binding Capacity, TSH W/Reflex to FT4, Vitamin D, 25-Hydroxy, Total, Immunoassay 01/19/2025 11:30 AM EDT Office Visit [facility] [address] [place] [address] Soledad Ocasio MD Alopecia (Primary Dx); Fibromyalgia 01/19/2025 Travel 12/22/2024 Orders Only [facility] [address] [place], [place] [phone] Ramona Barajas MD 12/15/2024 Refill [facility] [address] [place] [address] Soledad Ocasio MD Hypertension, unspecified type 12/15/2024 Refill [facility] [address] [place] [address] Soledad Ocasio MD 12/15/2024 Refill [facility] [address] [place] [address] Soledad Ocasio MD 12/13/2024 Orders Only [facility] External Provider, [facility] 12/03/2024 1:45 PM EDT Office Visit [facility] [address] [place] [address] Soledad Ocasio MD Fibromyalgia (Primary Dx); Intractable chronic migraine with aura and without status migrainosus 12/03/2024 Travel 11/22/2024 Telephone [facility] [address] [place] [address] Soledad Ocasio MD Referral 11/17/2024 Telephone [facility] MEDICINE [address] [place] [address] Soeldad Ocasio MD Care Management ([facility] Graduation) from Last 3 Months Immunizations Immunization Administration [...] 03/18/2025 1:45 PM EST Office Visit [facility] [address] [place] [address] Soledad Ocasio MD [address] [place] [address] Health Maintenance Due Date Last Done Comments [...] Cervical Cancer Screening 07/15/2026 HPV/Cotest 07/15/2026 07/16/2023, 05/2 06/2022, 09/18/2017 Pap Smear 07/15/2026 07/16/2023, 09/17/2022 [...] 25-Hydroxy, Total, Immunoassay (01/19/2025 1:14 PM EDT) Pathologist [facility] Vitamin D 25-OH Total 20.4(L) >30 ng/mL [facility] Comment: Health Based Reference Values*< 20 ng/mL [id number] ng/mL Insufficient> 30 ng/mL Sufficient*Henna RODRIGUEZ. N [...] ORDERABLES Final Re sult Performing Organization Address [facility] Co de Phone Number [facility] [address] [place] [phone] * TSH W/Reflex to FT4 (01/19/2025 1:14 PM EDT) Pathologist [facility] TSH reflex Free T4 0.87 0.32 - 4.0 uIU/mL [facility] Blood Venous blood specimen / Unknown 01/19/2025 1:14 PM EDT 01/19/2025 2:35 PM EDT Soledad Ocasio MD LAB BLOOD ORDERABLES Final Re sult Performing Organization Address [facility] Co de Phone Number [facility] [address] [place] [phone] * (ABNORMAL) CBC auto differential (01/19/2025 1:14 PM EDT) White Blood Count 10.8 4.8 - 10.8 X10*3/uL [facility] Red Blood Count 4.40 4.20 - 5.50 X10*6/uL [facility] Hemoglobin 11.6(L) 12.0 - 16.0 g/dl [facility] Hematocrit 36.8(L) 37.0 - 47.0 % [facility] Mean Corpuscular Volume 83.6 80.0 - 98.0 fL [facility] Mean Corpuscular Hemoglobin 26.4(L) 27.0 - 33.0 pg [facility] Mean Corpuscular HGB Conc 31.5 31.0 - 35.0 g/dl [facility] Red Cell Distribution Width 13.7 11.0 - 16.0 % [facility] Platelet Count 341 160 - 400 X10*3/uL [facility] Mean Platelet Volume 10.5 9.4 - 12.3 fL [facility] Neutrophils Percent Auto 69.7 45 - 73 % [facility] Imm Gran Pct Auto 0.5(H) 0.0 - 0.4 % [facility] Lymphocytes Percent Auto 23.5 20 - 40 % [facility] Monocytes Percent Auto 4.4 2 - 11 % [facility] Eosinophils Percent Auto 1.5 0 - 4 % [facility] Basophils Percent Auto 0.4 0 - 2 % [facility] NRBC Pct Auto 0.0 0.0 - 0.2 /100WBC [facility] Neutrophils Absolute Auto 7.6 2.0 - 8.3 x10*3/uL [facility] Imm Gran Abs Auto 0.05(H) 0.00 - 0.03 X10*3/uL [facility] Lymphocytes Absolute Auto 2.5 1.2 - 4.9 X10*3/uL [facility] Monocytes Absolute Auto 0.5 0.1 - 1.2 X10*3/uL [facility] Eosinophils Absolute Auto 0.2 0.0 - 0.4 X10*3/uL [facility] Basophils Absolute Auto 0.0 0.0 - 0.2 X10*3/uL [facility] NRBC Abs Auto 0.000 0.0 - 0.012 X10*3/uL [facility] Blood Venous blood specimen / Unknown 01/19/2025 1:14 PM EDT 01/19/2025 2:28 PM EDT us Soledad Ocasio MD LAB BLOOD ORDERABLES Final Re sult [facility] [address] [place], [place] [phone] * (ABNORMAL) Iron And Total Iron Binding Capacity (01/19/2025 1:14 PM EDT) Iron 33 30 - 160 mcg/dL [facility] Total Iron Binding Capacity 272 228 - 428 mcg/dL [facility] Percent Iron Saturation 12(L) 15 - 50 % [facility] Unsaturated Iron Binding 239 ug/dL [facility] Blood Venous blood specimen / Unknown 01/19/2025 1:14 PM EDT 01/19/2025 2:35 PM EDT Soledad Ocasio MD LAB BLOOD ORDERABLES Final Re sult [facility] [address] [place] [phone] * VASC US Abdominal pelvic Duplex Complete (12/21/2024 11:46 AM EDT) Historical Provider CV VASCULAR PROCEDURES Fi nal Result * MR Knee w/o Contrast Left (12/13/2024 8:00 PM EDT) Anatomical Region Laterality Modality Magnetic Resonan ce 12/13/2024 8:00 PM EDT Narrative 12/14/2024 7:14 AM EDT [address] [address] Magnetic Resonance Report Signed Patient: Qing Ackerman MR#: [id number] : 1985 Acct:[id number] Age/Sex: 39 / F ADM Date: 12/13/24 Loc: HO.MRI Attending Dr: Jeff Romo MD Ordering Physician: Jeff Romo MD Date of Service: 12/13/24 Procedure(s): MR knee LT wo con Accession Number(s): [id number] cc: Jeff Romo MD; Soledad Ocasio MD [...] signed by Cristobal Burns MD in OV> 12/14/24710 DD/ 99 TD/TT: 12/13/242012 Heater Helper: Procedure Note Donotuseinterpreter, Image - 12/14/2024 [place] [address] Magnetic Resonance Report Signed Patient: Brittany Ackerman#: [id number] : 1985Acct:[id number] Age/Sex: 39 / FADM Date: 12/13/24 Loc: HO.MRI Attending Dr: Jeff Romo MD Ordering Physician: Jeff Romo MD Date of Service: 12/13/24 Procedure(s): MR knee LT wo con Accession Number(s): [id number] cc: Jeff Romo MD; Soledad Ocasio MD [...] signed by Cristobal Burns MD in OV> 12/14/24710 DD/ 99 TD/TT: 12/13/242012 Heater Helper: [facility] External Provider IMG MRI PROCEDURES Edited Result - Final * Hemoglobin A1c (04/15/2024 1:41 PM EST) Hemoglobin A1c 5.9 <6.0 % [facility] Comment:Hemoglobin A1C Refer ence Range Adults: 4.8 - 6.0 % Non diabetic: < 6.0 % Goal: < 7.0 %Additional Action Suggested: > 8.0 %Note: Hemoglobin A1c results are invalid for patients with abnormal amounts of HbF. Blood transfusions may impact the HbA1c concentration in the patient sample. Estimated Average Glucose 123 mg/dL [facility] Comment:eAG = Estimated ave rage glucose which is %A1C expressed asaverage glucose, using the formula of the F6Z-IymirxkDiifmrm Glucose study (ADAG), Diabetes Care, Vol.31,#8,2007 Blood Venous blood specimen / Unknown 04/15/2024 1:41 PM EST 04/15/2024 2:22 PM EST Soledad Ocasio MD LAB BLOOD ORDERABLES Final Re sult Performing Organization Address [facility] Co de Phone Number [facility] [address] [place] [phone] * (ABNORMAL) Lipid Panel, Standard (04/15/2024 1:41 PM EST) Triglycerides 102 <150 mg/dL [facility] Comment:Desirable Triglyceri de: less than 150 mg/dLBorderline High Triglyceride 150-199 mg/dLHigh Triglyceride: 200-499 mg/dLVery High Triglyceride: greater than or equal to 5OO mg/dL Cholesterol 123 <200 mg/dL [facility] Comment:Desirable Cholestero l: less than 200 mg/dLBorderline High Cholesterol: 200-239 mg/dLHigh Cholesterol: greater than 239 mg/dL LDL Cholesterol Calculated 68 <100 mg/dL [facility] Comment:Desirable LDL: less than 100 mg/dLNear Optimal/Above Optimal LDL: 110- 129 mg/dLBorderline High LDL: 130-159 mg/dLHigh LDL: 160-189 mg/dLVery High LDL: greater than or equal to 190 mg/dL HDL Cholesterol 35(L) >40 mg/dL [facility] Comment:Desirable HDL: great er than 40 mg/dL Note: This HDL assay may give artificially low results in patients with liver disease. Blood Venous blood specimen / Unknown 04/15/2024 1:41 PM EST 04/15/2024 2:22 PM EST Soledad Ocasio MD LAB BLOOD ORDERABLES Final Re sult Performing Organization Address [facility]/ZIP Co de Phone Number [facility] [address] [place] [phone] * HM PAP/HPV (07/16/2023 12:00 AM EDT) Pap Smear 1. NILM 1. NILM [facility] HPV Not Detected Undetected, Indeterminat e, Quantitative , Not Detected [facility] Historical Provider HEALTH MAINTENANCE Edited Result - Final [facility] [address] [place] [address] * Hepatitis C Antibody with Reflex to HCV, RNA, Quantitative, Real-Time PCR (09/02/2022 11:51 AM EDT) Pathologist [facility] Hepatitis C Antibody NON-REACT JACKIE NON-REACT JACKIE [employer] [place] [employer] Index 0.09 <1.00 [employer] [place] [employer] Comment: HCV antibody was non-reactive. There is no laboratory evidence of HCV infection. In most cases, no further action is required. However, if recent HCV exposure is suspected, a test for HCV RNA (test code 94345) is suggested. For additional information please refer to http://education.[employer]/faq/IWN97f6 (This link is being provided for informational/ educational purposes only.) Blood Venous blood specimen / Unknown 09/02/2022 11:51 AM EDT 09/02/2022 11:52 AM EDT Soledad Ocasio MD LAB BLOOD ORDERABLES Final Re sult [facility] [address] [facility], [place] [address] [employer] [place] [employer] [address] [place] [address] * HIV-1/2 Antigen and Antibodies, Fourth Generation, with Reflexes (09/02/2022 11:51 AM EDT) HIV Antigen/Antibody, 4th Generation NON-REAC TIVE NON-REAC TIVE [employer] [place] [employer] Comment: HIV-1 antigen and HIV-1/HIV-2 antibodies were [...] purpose. For additional information please refer to http://education.[employer]/faq/NNE380 (This link is being provided for informational/ educational purposes only.) The performance of this assay has not been clinically validated in patients less than 2 years old. Blood Venous blood specimen / Unknown 09/02/2022 11:51 AM EDT 09/02/2022 11:52 AM EDT us Soledad Ocasio MD LAB BLOOD ORDERABLES Final Re sult [facility] [address], [place] [address] [employer] [facility] [address] [place] [address] from Last 3 Months or Most Recently Relevant to Health Maintenance [place] [address] [address] C3 Care Teams Inspector Balance Wheel Motion Relationship Specialty Start Date End Date Soledad Ocasio MD [address] [place] [phone] PCP - General Family Medicine 08/07/22
--- OUTSIDE RECORDS SUMMARY | 2025-02-09 10:59 | XMS_ITS | Encounter Summary ---
Author Organization [employer] Address [address] [place] [address] Care Team Providers Care Vacation Sales Advisor Name Role Phone Soledad Ocasio MD Primary Care Provider [phone] Encounter Details Date Type Department Care Team ([facility] st Contact Info) Description 02/07/2025 Telephone [facility] MEDICINE [address] [place] [address] Soledad Ocasio MD [address] [place] [address] Social History Tobacco Use Types Packs/Day Years [...] encounter Miscellaneous Notes * Telephone Encounter - Junie Sommer LPN - 02/07/2025 10:24 AM EDT TC to pt to gather information for completion of Subsidized childcare - Verification of disability of parent forms. Pt was able to answer all questions and was informed that forms will be completed over the next couple of days. documented in this encounter Plan of Treatment Upcoming Encounters Date Type Department Care Team ([facility] st Contact Info) Description 03/18/2025 1:45 PM EST Office Visit [facility] PEDS [address] [place] [address] Soledad Ocasio MD [address] [place] [address] documented as of this encounter Visit Diagnoses Not on filedocumented in this encounter Additional Health Concerns Assessment Noted Time PHQ-9 Depression Total Score: 0 06/17/19 25 1:39 PM EST documented as of this encounter Care Teams Vacation Sales Advisor Relationship Specialty Start Date End Date Soledad Ocasio MD [address] [place] [phone] PCP - General Family Medicine 08/07/22 documented as of this encounter
--- OUTSIDE RECORDS SUMMARY | 2025-02-09 11:00 | XMS_ITS | Encounter Summary ---
Author Organization [employer] Address [address] [facility] [address] [place] [address] Care Team Providers Care Glass Unloading Equipment Tender Name Role Phone Soledad Ocasio MD Primary Care Provider [phone] Nicole Ramsey PharmD Unavailable [phone] Reason for Visit * Reason Comments Med Refill Encounter Details Date Type Department Care Team ([facility] st Contact Info) Description 09/22/2024 Refill [facility]S [address] [place], [place] [phone] Fahad Agrawal MD [address] [place] [address] Low back pain at multiple sites Social [...] Description 03/18/2025 1:45 PM EST Office Visit [facility] PEDS [address] [place] [address] Soledad Ocasio MD [address] [place] [address] documented as of this encounter Visit Diagnoses Diagnosis Low back pain at multiple sites documented in this encounter Additional Health Concerns Assessment Noted Time PHQ-9 Depression Total Score: 0 06/17/19 1:39 PM EST documented as of this encounter Care Teams Glass Unloading Equipment Tender Relationship Specialty Start Date End Date Soledad Ocasio MD [address] [place] [address] PCP - General Family Medicine 08/07/22 Nicole Ramsey PharmD [address] [place] [address] Pharmacist Internal Medicine 07/07/24 11/06/24 documented as of this encounter
--- OUTSIDE RECORDS SUMMARY | 2025-02-09 11:00 | XMS_ITS | Clinical Summary ---
Author Organization [facility] Address [address] [address] Phone Care Team Providers Care Toddler Guide Name Role Phone Soledad Ocasio MD Primary Care Provider [phone] Allergies No known active allergies Medications * This document contains information received from the source organization and may not represent a complete record from that organization. traZODone (DESYREL) 150 MG tablet Take 150 mg by mouth once daily as needed 5 Active Tirzepatide-We ight Management (Zepbound) 7.5 MG/0.5ML solution Inject 7.5 [...] and 20 mg in the evening. 5 026 Active divalproex (DEPAKOTE) 500 MG EC tablet Take 1 tab by mouth in the morning and 2 tabs in the evening. Do not crush, chew, or split. 5 Active chlorthalidone 25 MG tablet Take 25 mg by mouth in the morning. 5 Active atenolol (TENORMIN) 50 MG tablet Take 50 mg by mouth in the morning. 5 026 Active albuterol (PROVENTIL,GRICEL TOLIN) 2 MG/5ML syrup Take 2 mg by mouth in the morning and 2 mg in the evening and 2 mg before bedtime. Active NIFEdipine XL (PROCARDIA XL) 90 MG 24 hr tablet Take 1 tablet (90 mg total) by mouth 1 (one) time each day Do not crush, chew, or split. 30 tablet 11 5 026 Active NIFEdipine XL (Procardia XL) 60 MG 24 hr tablet Take 1 tablet (60 mg total) by mouth 1 (one) time each day Do not crush, chew, or split. 30 tablet 11 5 025 Discontinued Active Problems Problem Noted Date Diagnosed Date [...] 05/15/2018 Abnormal cervical Papanicolaou smear 05/15/2018 Encounters Date Type Department Care Team Description 01/19/2025 4:00 PM EDT Office Visit [facility] [address] [place] [address] Jigar Bello MD Hypertension (Primary Dx); Obesity, not otherwise specified 12/17/2024 9:15 AM EDT Office Visit [facility] [address] [address] Jigar Bello MD Hypertension (Primary Dx); Obesity, not otherwise specified 12/16/2024 9:00 AM EDT Clinical Support [facility] [address] [address] from Last 3 Months Immunizations Immunization Administration [...] Sign Reading Time Taken Comments Blood Pressure 149/90 01/19/2025 4:16 PM EDT Pulse 95 01/19/2025 4:16 PM EDT Temperature - - Respiratory Rate - - Oxygen Saturation - - Inhaled Oxygen Concentration - - Weight 83.9 kg (185 lb) 01/19/2025 4:16 PM EDT Height 147.3 cm (4' 10 ) 11/05/2024 9:05 AM EDT Body Mass Index 38.67 11/05/2024 9:05 AM EDT Plan of Treatment Upcoming Encounters Date Type Department Care Team (Late st Contact Info) Description 05/23/2025 4:00 PM EST Office Visit [facility] [address] [address] Jigar Bello MD [address] [phone] Health Maintenance Due Date Last Done Comments [...] MONITOR Routine 12/17/2024 9:32 AM EDT Hypertension from Last 3 Months Results * Initiate ABPM Monitoring (12/17/2024 9:32 AM EDT) Anatomical Region Laterality Modality Other Jigar Bello MD CV CARDIAC SERVICES PROCEDURES F inal Result from Last 3 Months Insurance Medicaid [place] Care Teams Toddler Guide Relationship Specialty Start Date End Date Soledad Ocasio MD [address] [place] [phone] PCP - General Family Medicine 09/21/24
--- OUTSIDE RECORDS SUMMARY | 2025-02-09 11:00 | XMS_ITS | Encounter Summary ---
Author Organization [employer] Address [address] [facility] 7t [place] [address] Care Team Providers Care Power Reactor Operator Name Role Phone Soledad Ocasio MD Primary Care Provider [phone] Reason for Visit * Reason Comments Med Refill Encounter Details Date Type Department Care Team ([facility] st Contact Info) Description 02/06/2025 Refill [facility] CHC MED & PEDS [address] [place], [place] [phone] Fahad Agrawal MD 505 [place] [address] Low back pain at multiple sites Social [...] Description 03/18/2025 1:45 PM EST Office Visit [facility] MED & PEDS 505 [place] [address] Soledad Ocasio MD 505 [place] [address] documented as of this encounter Visit Diagnoses Diagnosis Low back pain at multiple sites documented in this encounter Additional Health Concerns Assessment Noted Time PHQ-9 Depression Total Score: 0 06/17/19 25 1:39 PM EST documented as of this encounter Care Teams Power Reactor Operator Relationship Specialty Start Date End Date Soledad Ocasio MD [address] [place] [address] PCP - General Family Medicine 08/07/22 documented as of this encounter
--- OUTSIDE RECORDS SUMMARY | 2025-02-09 11:00 | XMS_ITS | Encounter Summary ---
Author Organization [employer] Address [address] [facility] [address] 7t [place] [address] Care Team Providers Care Product Development Assistant Name Role Phone Soledad Ocasio MD Primary Care Provider [phone] Nicole Ramsey PharmD Unavailable Reason for Visit * Reason Onset Date Comments Appointment Request 10/19/2024 Encounter Details Date Type Department Care Team ([facility] Contact Info) Description 10/19/2024 Telephone [facility] MEDICINE [address] [place] [address] Soledad Ocasio MD 505 [place] [address] Appointment Request Social History Tobacco Use Types [...] requesting r/s 10/19 appointment with Nicole Ramsey. [phone] documented in this encounter Plan of Treatment Upcoming Encounters Date Type Department Care Team ([facility] st Contact Info) Description 03/18/2025 1:45 PM EST Office Visit [facility] MED & PEDS [address] [place] [address] Soledad Ocasio MD [address] [place] [address] documented as of this encounter Visit Diagnoses Not on filedocumented in this encounter Additional Health Concerns Assessment Noted Time PHQ-9 Depression Total Score: 0 06/17/19 25 1:39 PM EST documented as of this encounter Care Teams Product Development Assistant Relationship Specialty Start Date End Date Soledad Ocasio MD [address] [place] [address] PCP - General Family Medicine 08/07/22 Nicole Ramsey, Janis [address] [place] [address] Pharmacist Internal Medicine 07/07/24 11/06/24 documented as of this encounter
--- OUTSIDE RECORDS SUMMARY | 2025-02-09 11:00 | XMS_ITS | Encounter Summary ---
Author Organization [employer] Address [address] [facility] [address] 7[address] [place] [address] Care Team Providers Care Paper Twister Tender Name Role Phone Soledad Ocasio MD Primary Care Provider [phone] Nicole Ramsey PharmD Unavailable [phone] Reason for Visit * Reason Onset Date Comments Appointment Request 10/05/2024 Encounter Details Date Type Department Care Team ([facility] st Contact Info) Description 10/05/2024 Telephone [facility] MEDICINE [address] [place] [address] Soledad Ocasio MD 505 [place] [address] Appointment Request Social History Tobacco Use Types [...] scheduled for today 10/05. Please return call [phone] documented in this encounter Plan of Treatment Upcoming Encounters Date Type Department Care Team ([facility] st Contact Info) Description 03/18/2025 1:45 PM EST Office Visit [facility] MED & PEDS [address] [place] [address] Soledad Ocasio MD 505 [place] [address] documented as of this encounter Visit Diagnoses Not on filedocumented in this encounter Additional Health Concerns Assessment Noted Time PHQ-9 Depression Total Score: 0 06/17/19 25 1:39 PM EST documented as of this encounter Care Teams Paper Twister Tender Relationship Specialty Start Date End Date Soledad Ocasio MD [address] [place] [address] PCP - General Family Medicine 08/07/22 Nicole Ramsey, Janis [address] [place] [address] Pharmacist Internal Medicine 07/07/24 11/06/24 documented as of this encounter
--- OUTSIDE RECORDS SUMMARY | 2025-02-09 11:00 | XMS_ITS | Encounter Summary ---
Author Organization [employer] Address [address] [facility] [address] 7t [place] [address] Care Team Providers Care Locum Tenens Hospitalist Name Role Phone Soledad Ocasio MD Primary Care Provider [phone] Nicole Ramsey PharmD Unavailable [phone] Encounter Details Date Type Department Care Team ([facility] st Contact Info) Description 09/15/2023 Telephone [facility] CHC MED & PEDS [address] [place], [place] [phone] Soledad Ocasio MD 505 [place], [place] [phone] Social History Tobacco Use Types Packs/Day Years [...] PM EDT Tc to pt who stated [facility] is telling her to get Hep B titers. However, pt already had Hep B titers done on 09/09 which showed she was immune to Hep B. Pt brought these results to [facility] but they still insisted on pt getting Hep B titers. Provided pt with our office number for [facility] to call us. Pt verbalized understanding and agreement with plan. * Telephone Encounter - Ruth Smith - 09/15/2023 2:40 PM EDT Tc from pt requesting a call back to discuss immunizations. documented in this encounter Plan of Treatment Upcoming Encounters Date Type Department Care Team ([facility] st Contact Info) Description 03/18/2025 1:45 PM EST Office Visit [facility] MED & PEDS [address] [place] [address] Soledad Ocasio MD 505 [place] [address] documented as of this encounter Visit Diagnoses Not on filedocumented in this encounter Additional Health Concerns Assessment Noted Time PHQ-9 Depression Total Score: 17 023 11:47 AM EDT documented as of this encounter Care Teams Loc[employer] Hospitalist Relationship Specialty Start Date End Date Soledad Ocasio MD [address] [place] [address] PCP - General Family Medicine 08/07/22 Nicole Ramsey, Janis [address] [place] [address] Pharmacist Internal Medicine 07/07/24 11/06/24 documented as of this encounter
--- OUTSIDE RECORDS SUMMARY | 2025-02-09 11:00 | XMS_ITS | Encounter Summary ---
Author Organization [employer] Address [address] [facility] [address] 7[address] [place] [address] Care Team Providers Care Art Display Maker Name Role Phone Soledad Ocasio MD Primary Care Provider [phone] Nicole Ramsey PharmD Unavailable [phone] Encounter Details Date Type Department Care Team (Late Contact Info) Description 11/08/2022 Orders Only [facility] CHC MED & PEDS [address] [place], [place] [phone] Gissel [place] MD 505 [place], [place] [phone] Social History Tobacco Use Types Packs/Day Years [...] Description 03/18/2025 1:45 PM EST Office Visit [facility] CHC MED & PEDS [address] [place], [place] [phone] Soledad Ocasio MD 505 [place] [address] documented as of this encounter Visit Diagnoses Not on filedocumented in this encounter Additional Health Concerns Assessment Noted Time PHQ-9 Depression Total Score: 17 023 11:47 AM EDT documented as of this encounter Care Teams Art Display Maker Relationship Specialty Start Date End Date Soledad Ocasio MD [address] [place] [address] PCP - General Family Medicine 08/07/22 Nicole Ramsey PharmD 230 [place] [address] Pharmacist Internal Medicine 07/07/24 11/06/24 documented as of this encounter
== END 2025-02-09 10:01 | disposition home or self-care (01) ==
LOC: HO.HOS 09:37
PROVIDERS: PCP Family Medicine; Visit Provider Orthopaedic Surgery
DX: M17.0 Bilateral primary osteoarthritis of knee (principal); M25.561 Pain in right knee; M25.562 Pain in left knee
CPT/HCPCS: 20610; 99213

== ENCOUNTER → 2025-02-09 09:36 | Outpatient (BNVA) | payer MEDICAID, SELFPAY | PROVIDERS: PCP Family Medicine; Visit Provider Orthopaedic Surgery | DX: M17.0 Bilateral primary osteoarthritis of knee (principal); M25.561 Pain in right knee; M25.562 Pain in left knee | CPT/HCPCS: 20610; 99212; J2003; J7318 ==

== ENCOUNTER 2025-03-23 08:07 | Outpatient (AMB) | payer MEDICAID, SELFPAY ==
--- OUTSIDE RECORDS SUMMARY | 2025-03-18 13:45 | XMS_ITS | Encounter Summary ---
Author Organization [employer] Address [address] [facility] [address] 7[address] [place] [address] Care Team Providers Care General Helper Name Role Phone Soledad Ocasio MD Primary Care Provider [phone] Encounter Details Date Type Department Care Team ([facility] st Contact Info) Description 03/18/2025 1:45 PM EST Office Visit [facility] CHC MED & PEDS [address] [place], [place] [phone] Soledad Ocasio MD 505 [place], [place] [phone] Fibromyalgia (Primary Dx); Resistant hypertension; Severe obesity (CMS/HCC) (HCC) Social History Tobacco Use Types Packs/Day Years [...] Sign Reading Time Taken Comments Blood Pressure 148/100 03/18/2025 1:51 PM EST Pulse 82 03/18/2025 1:51 PM EST Temperature 36.3 C (97.4 F) 03/18/2025 1:51 PM EST Respiratory Rate 20 03/18/2025 1:51 PM EST Oxygen Saturation 98% 03/18/2025 1:51 PM EST Inhaled Oxygen Concentration - - Weight 78.3 kg (172 lb 9.6 oz) 03/18/2025 1:51 P M EST Height 147.3 cm (4' 10 ) 03/18/2025 1:51 PM EST Body Mass Index 36.07 03/18/2025 1:51 PM EST documented in this encounter Plan of Treatment Not on file documented as of this encounter Visit Diagnoses Diagnosis Fibromyalgia- Primary Unspecified myalgia and myositis Resistant hypertension Severe obesity (CMS/HCC) (HCC) Morbid obesity documented in this encounter Additional Health Concerns Assessment Noted Time PHQ-9 Depression Total Score: 0 06/17/19 25 1:39 PM EST documented as of this encounter Care Teams General Helper Relationship Specialty Start Date End Date Soledad Ocasio MD [address] [place] [address] PCP - General Family Medicine 08/07/22 documented as of this encounter
--- NOTE | 2025-03-23 08:08 | A.OFFVIS_ITS ---
Vital Signs 03/23/25 08:09 Height 4 ft 10 in Weight 177 lb 4.026 oz BMI 37.0 BP 122/70 Blood Pressure Location Lt brachial Position Standing Pulse 77 Pulse Source Pulse Oximeter Pulse Oximetry (%) 99 Oxygen Delivery Method Room Air Intake Visit Reasons: HARISH Intake Note: Patient presents for polyarthralgia and bilateral knee pain. She was internally referred by Dr. Mcnulty of orthopedics. She states it's been going on for years, taking Gabapentin for the pain. Dialysis Tech Required: No Accompanied by: Self / Same As Patient Allergies acetaminophen (From Percocet) Allergy (Unknown, Verified 03/23/25 08:12) Hives oxycodone (From Percocet) Allergy (Unknown, Verified 03/23/25 08:12) Hives HPI Comments Details: 39 year old female with a PMH of presnetning as new patient for evaluation of joint pain. She states she has joint pain all over, joint pain started 12 years ago. She was diagnosed with fibromyalgia since then. She reports that this joint pain is in her hands elbows shoulders back knees hips ankles toes. She states it hurts all over. She also reports that objects falling out of her hand. She reports she has stiffness all day long in her joints. No specific morning stiffness. She reports she has extremely poor sleep and sleep duration is very limited. She also endorses bilateral numbness and tingling in the feet and hands. Overall, she feels she does not have much strength and is very fatigued and tired, causing her much frustration as she is unable to play with her 2 daughters or do any job. Her last nerve conduction study/EMG done in 2019 on the left upper extremity was within normal limits She has had a comprehensive autoimmune workup, including a negative RF, CCP HEIDY and negative myositis panel. She has had a slightly elevated ESR 37, TSH, vitamin B12, folate were within normal limits. Her iron saturation is slightly low, she is currently on iron supplementation Imaging were has revealed that she has had a normal left knee MRI, on x-ray of the knees bilaterally she had Lateral positioning of the right patella as can be associated with patellofemoral tracking syndrome. [id number] bilateral effusions. She also had a lumbar spinal x-ray no significant degenerative changes For medication, patient is currently on gabapentin 600 mg twice a day and duloxetine 20 mg b.i.d., she reports that these are not causing much improvement. She has tried physical therapy , exercises and sees pain management. Review of Systems Constitutional: Denies fever, chills, weight loss ENT: Denies vision changes, eye pain or eye redness, dental caries, dry mouth GI: Denies nausea, vomiting, diarrhea, abdominal pain, change in BM Pulm: Denies SOB, MUIR, hemoptysis, wheezing Cards: DENIES PLEURITIC CHEST PAIN Skin: Denies Raynaud's, rash, nail changes, photosensitivity, METAL CUT OFF SAW TENDER: ENDORSES PARESTHESIAS, WEAKNESS MSK: as per HPI All other systems reviewed and are unremarkable except noted above Vital signs reviewed Physical Examination CONSTITUITIONAL Patient alert and cooperative. Well appearing and in no apparent painful distress HEENT Conjunctiva and sclera clear. No lymphadenopathy. CHEST/RESPIRATORY SYSTEM Normal respiratory effort and able to speak in complete sentences. CARDIAC SYSTEM Regular rate and rhythm. MSK Hands * Right Hand: Able to make a fist. No active synovitis noted * Left Hand: Able to make a fist. No active synovitis noted Wrists * Right Wrist: Full ROM to flexion and extension. There is tenderness To palpation of the wrist * Left Wrist: Full ROM to flexion and extension. There is tenderness To palpation of the wrist Elbows * Right Elbow: Full ROM. * Left Elbow: Full ROM. Shoulders * Right shoulder: Full ROM. No swelling noted. No TTP of the AC joint. No TTP of the subacromial bursa. No TTP of the posterior shoulder * Left shoulder: Full ROM. No swelling noted. No TTP of the AC joint. No TTP of the subacromial bursa. No TTP of the posterior shoulder Hips * Right hip: Good ROM. * Left hip: Good ROM. Hip bursa: No tenderness to palpation bilaterally Knees * Right knee: Full ROM. No swelling noted. patient endorses tenderness on palpation of the knee * Left knee: Full ROM. No swelling noted patient endorses tenderness on palpation of the knee Ankles * Right ankle: Good ankle dorsiflexion and plantar flexion. No swelling. No TTP of the ankle joint * Left ankle: Good ankle dorsiflexion and plantar flexion. No swelling. No TTP of the ankle joint Feet * Right foot: Negative squeeze test * Left foot: Negative squeeze test Tender points? * No tenderness to palpation of the bilateral trapezius, supraspinatus, anterior costochondral junctions, bilateral suboccipital muscle insertions SKIN No rashes PFSH Medical History Morbid obesity with BMI of 40.0-44.9, adult Chronic pain syndrome Polyarthralgia Anemia Hypertension Migraine Family History (Updated 03/23/25 @ 08:21 by Pau Roldan CMA) Mother Fibromyalgia Active asthma Diabetes Carpal tunnel syndrome Back problem Maternal Aunt Breast cancer Paternal Grandmother Skin cancer Social History (Updated 03/23/25 @ 08:21 by Pau Roldan CMA) Alcohol intake: never Patient Tobacco Use Status: Never used Tobacco Physical Exam Vital Signs: BMI result Body Mass Index 37.0 Assessment & Plan Assessment & Plan (1) Polyarthralgia: Code(s): M25.50 - Pain in unspecified joint Category: Medical (2) Fibromyalgia: Code(s): M79.7 - Fibromyalgia Category: Medical (3) Numbness and tingling of both upper extremities: Code(s): R20.0 - Anesthesia of skin; R20.2 - Paresthesia of skin Category: Medical (4) Fibromyalgia: Code(s): M79.7 - Fibromyalgia Category: Medical (5) Numbness and tingling of both upper extremities: Code(s): R20.0 - Anesthesia of skin; R20.2 - Paresthesia of skin Category: Medical (6) Numbness and tingling of both lower extremities: Code(s): R20.0 - Anesthesia of skin; R20.2 - Paresthesia of skin Category: Medical Plan Patient presents with diffuse pain, pain is there all the time. No specific morning stiffness. No active synovitis. Patient presents with most likely chronic pain syndrome, most likely fibromyalgia. I will refer her to sleep Medicine to evaluate for possible sleep apnea. In light of her numbness and tingling in bilateral lower and upper extremities, we will obtain nerve conduction studies of the upper or lower extremities. There are no signs of autoimmune rheumatic disease on exam. Patient has negative RF, CCP and HEIDY, we will obtain hand x-rays to look for any stigmata of inflammatory arthritis, although suspicion is very low for any sort of inflammatory arthritis. Patient is already doing physical therapy, and she reports it is not helping. I did reinforce her the importance of physical therapy, aquatic therapy, exercise for management of fibromyalgia, she is currently on gabapentin and duloxetine . we discussed low-dose naltrexone, patient will look into this further and discuss this with pain medicine. We will follow up with her in 6 months, patient education was also done, handout was given to the patient Orders: Orders NE nerve conduction velocity Today M25.50 - Pain in unspecified joint, M79.7 - Fibromyalgia XR Hand Filiberto 2V Today R20.0 - Anesthesia of skin, R20.2 - Paresthesia of skin NE electromyogram (EMG) Today R20.0 - Anesthesia of skin, R20.2 - Paresthesia of skin NE electromyogram (EMG) Today M25.50 - Pain in unspecified joint, M79.7 - Fibromyalgia, R20.0 - Anesthesia of skin, R20.2 - Paresthesia of skin NE nerve conduction velocity Today R20.0 - Anesthesia of skin, R20.2 - Paresthesia of skin Referrals Sleep Medicine Referral M17.11 - Unilateral primary osteoarthritis, right knee, M79.7 - Fibromyalgia Coding Level of Care Code New Pt Level 4 (28038) Diagnoses Polyarthralgia M25.50 Fibromyalgia M79.7 Numbness and tingling of both upper extremities R20.0; R20.2 Numbness and tingling of both lower extremities R20.0; R20.2
[2025-03-23 08:09] VITALS: BP 122/70; PULSE 77; O2SAT 99; BMI 37.0
--- OUTSIDE RECORDS SUMMARY | 2025-03-23 08:17 | XMS_ITS | Encounter Summary ---
Author Organization [employer] Address [address] [facility] 7t [place] [address] Care Team Providers Care Certified Pesticide Applicator Name Role Phone Soledad Ocasio MD Primary Care Provider [phone] Nicole Ramsey PharmD Unavailable [phone] Encounter Details Date Type Department Care Team (Late st Contact Info) Description 05/26/2022 Orders Only [facility] MEDICINE [address] [place], [place] [phone] Billy Muñiz MD 505 [place], [place] [phone] Major depressive disorder, remission status unspecified, unspecified [...] as of this encounter Plan of Treatment Not on file documented as of this encounter Visit Diagnoses Diagnosis Major depressive disorder, remission status unspecified, unspecified whether recurrent- Primary documented in this encounter Care Teams Certified Pesticide Applicator Relationship Specialty Start Date End Date Soledad Ocasio MD [address] [place], [place] [phone] PCP - General Family Medicine 08/07/22 Nicole Ramsey, PharmD [address] [place], [place] [phone] Pharmacist Internal Medicine 07/07/24 11/06/24 documented as of this encounter
--- OUTSIDE RECORDS SUMMARY | 2025-03-23 08:17 | XMS_ITS | Encounter Summary ---
Author Organization [employer] Address [address] [facility] [address] [place] [address] Care Team Providers Care Journeyman Mechanic Name Role Phone Soledad Ocasio MD Primary Care Provider [phone] Nicole Ramsey PharmD Unavailable [phone] Reason for Visit * Reason Comments Med Refill Encounter Details Date Type Department Care Team ([facility] st Contact Info) Description 05/28/2024 Refill [facility] CHC MED & PEDS [address] [place], [place] [phone] Soledad Ocasio MD 505 [place] [address] Mood disorder (CMS/HCC) Social History Tobacco Use [...] documented as of this encounter Care Teams Journeyman Mechanic Relationship Specialty Start Date End Date Soledad Ocaiso MD [address] [place] [address] PCP - General Family Medicine 08/07/22 Nicole Ramsey PharmD [address] [place] [address] Pharmacist Internal Medicine 07/07/24 11/06/24 documented as of this encounter
--- OUTSIDE RECORDS SUMMARY | 2025-03-23 08:17 | XMS_ITS | Encounter Summary ---
Author Organization [employer] Address [address] [facility] [address] [place] [address] Care Team Providers Care Human Resources Representative Name Role Phone Soledad Ocasio MD Primary Care Provider [phone] Nicole Ramsey PharmD Unavailable [phone] Encounter Details Date Type Department Care Team (Late st Contact Info) Description 04/11/2022 Orders Only [facility] MED & PEDS [address] [place] [address] Katie Aguilar LPN Social History Tobacco Use [...] on filedocumented in this encounter Care Teams Human Resources Representative Relationship Specialty Start Date End Date Soledad Ocasio MD [address] [place] [address] PCP - General Family Medicine 08/07/22 Nicole Ramsey, PharmD [address] [place] [address] Pharmacist Internal Medicine 07/07/24 11/06/24 documented as of this encounter
--- OUTSIDE RECORDS SUMMARY | 2025-03-23 08:17 | XMS_ITS | Encounter Summary ---
Author Organization [employer] Address [address] [facility] [address] [place] [address] Care Team Providers Care Wire Mill Operator Name Role Phone Soledad Ocasio MD Primary Care Provider [phone] Reason for Visit * Reason Comments Med Refill Encounter Details Date Type Department Care Team ([facility] st Contact Info) Description 12/15/2024 Refill [facility] CHC MED & PEDS [address] [place], [place] [phone] Soledad Ocasio MD 505 [place] [address] Hypertension, unspecified type Social History Tobacco Use [...] documented as of this encounter Care Teams Wire Mill Operator Relationship Specialty Start Date End Date Soledad Ocasio MD [address] [place] [address] PCP - General Family Medicine 08/07/22 documented as of this encounter
--- OUTSIDE RECORDS SUMMARY | 2025-03-23 08:17 | XMS_ITS | Encounter Summary ---
Author Organization [employer] Address [address] [facility] 7t [place] [address] Care Team Providers Care Stencil Cutter Name Role Phone Soledad Ocasio MD Primary Care Provider [phone] Encounter Details Date Type Department Care Team (Late st Contact Info) Description 12/22/2024 Orders Only [facility] [address] [place] [address] Provider, MD Ramona Social History Tobacco Use [...] on file documented as of this encounter Procedures Procedure [...] documented as of this encounter Care Teams Stencil Cutter Relationship Specialty Start Date End Date Soledad Ocasio MD [address] [place] [address] PCP - General Family Medicine 08/07/22 documented as of this encounter
--- OUTSIDE RECORDS SUMMARY | 2025-03-23 08:17 | XMS_ITS | Clinical Summary ---
Author Organization [employer] Address [address] [place] [address] Care Team Providers Care Screen Operator Name Role Phone Soledad Ocasio MD Primary Care Provider [phone] Allergies No known active allergies Medications * [...] bedtime for sleep. 30 tablet 1 Active ARIPiprazole (Abilify) 10 MG tabletIndicatio ns:Mood disorder (CMS/HCC) Take 1.5 tablets (15 mg) by mouth Once per day. 45 tablet 1 Active hydrALAZINE (Apresoline) 25 MG tablet Take 1 tablet (25 mg) by mouth 3 times daily. 270 tablet Active escitalopram (Lexapro) 10 MG tablet Take 1 tablet by mouth Once per day. Active rizatriptan (Maxalt) 10 MG tabletIndicatio ns:Intractable [...] 80 MG chewable tablet Chew 80 mg. Active metoclopramide (Reglan) 10 MG tablet TAKE 1 TABLET BY MOUTH TWICE DAILY NEEDED FOR HEADACHE Active Tirzepatide-Awais ght Management (Zepbound) 10 MG/0.5ML solution auto-injector Inject 0.5 mL (10 mg) under the skin 1 (one) time per week. 2 mL 3 Active ondansetron (Zofran) 4 MG tablet Take 1 tablet (4 mg) by mouth every 8 (eight) hours if needed for nausea or vomiting. 40 tablet Active Minoxidil (Minoxidil for Women) 5 % foam Apply 5 g topically Once per day. 200 g 2 Active cholecalciferol (Vitamin D-3) 50 MCG (2000 UT) capsule Take 1 capsule (50 mcg) by mouth Once per day. 90 capsule 1 Active ferrous gluconate (Fergon) 324 (38 Fe) MG tablet Take 1 tablet (324 mg) by mouth with breakfast. 90 tablet 1 Active lidocaine (Lidoderm) 5 % patchIndication s:Low back pain at multiple sites APPLY ONE PATCH TOPICALLY ONCE PER DAY. REMOVE AND DISCARD WITHIN 12 HOURS OR DIRECTED BY 30 patch 3 Active divalproex (Depakote ER) 500 MG 24 hr tablet Take 1,500 mg by mouth in the evening. Active NIFEdipine XL (Procardia XL) 90 MG 24 hr tablet Active telmisartan (Micardis) 80 MG tablet Take 1 tablet (80 mg) by mouth Once per day. 90 tablet 1 Active pregabalin (Lyrica) 75 MG capsuleIndicati ons:Fibromyalgi a Take 1 capsule (75 mg) by mouth 2 times daily. 60 capsule 1 Active divalproex (Depakote) 500 MG EC tabletIndicatio ns:Mood disorder (CMS/HCC) Take 1 tab by mouth in the morning and 2 tabs in the evening. Do not crush, chew, or split. 90 tablet 1 025 2024 Discontinued losartan (Cozaar) 100 MG tabletIndicatio ns:Hypertension , unspecified type Take 1 tablet (100 mg) by mouth Once per day. 90 tablet 1 2024 Discontinued(T herapy completed) NIFEdipine XL (Procardia XL) 60 MG 24 hr tablet Take 60 mg by mouth Once per day. 025 2024 Discontinued gabapentin (Neurontin) 800 MG tablet Take 1 tablet (800 mg) by mouth at bedtime. 90 tablet 1 025 2024 Discontinued(T herapy completed) gabapentin (Neurontin) 600 MG tabletIndicatio ns:Fibromyalgia TAKE 1 TABLET BY MOUTH TWICE A DAY 60 tablet 3 025 2024 Discontinued(T herapy completed) Active [...] an autoimmune disorder. Plan: - Refer to custom motorcycle painter for evaluation and treatment - Autoimmune [...] will check labs and schedule apt with [facility] Derm clinic. Diarrhea 01/28/2023 Assessment & Plan (01/28/2023 4:56 PM EDT): Unknown etiology. Will send testing. Will send symptomatic management. rtc if worsening symptoms, benign abdominal exam. Chronic pain of left knee 11/19/2022 Assessment & Plan (11/19/2022 4:12 PM EDT): Patient with chronic Left knee pain, will refer to orthopedic surgery for further evaluation. Post-traumatic stress disorder 10/28/2022 Assessment & Plan (11/12/2022 [...] of change PLAN: 1. Follow up with [facility] [place]: Recommended for follow-up: patient will contact to schedule follow up 2. Patient goal is increase coping mechanisms 3. Behavioral Recommendations a. Deep breathing b. Task prioritizing c. Contacting the accomodation department at the [facility] Assessment & Plan (10/28/2022 1:27 PM [...] for treatment. PLAN: 1. Follow up with [facility] [place]: Recommended for follow-up: 10/24/22 2. Patient goal [...] recommended reduction of 20-30% of maintenance calories; poker manager referral offered. Recommended to decrease soda and [...] recommended reduction of 20-30% of maintenance calories; poker manager referral offered. Recommended to decrease soda and [...] AM EST): Started to be seen by adjunct communications faculty member in office, he continues her mood stabilizer & SGA and added trazodone to regimen, next appt in 2 weeks. Followup per psych recs. Future Appointments Date Time Provider Department Center 04/30/2024 10:45 AM Soledad Ocasio MD [facility] 05/13/2024 4:00 PM [facility] 05/20/2024 9:00 AM Fahad Agrawal MD [facility] Assessment & Plan (04/15/2024 11:07 [...] Encounters Date Type Department Care Team Description 03/18/2025 1:45 PM EST Office Visit [facility] [address] [place] [address] Soledad Ocasio MD Fibromyalgia (Primary Dx); Resistant hypertension; Severe obesity (CMS/HCC) (HCC) 03/18/2025 Telephone [facility] [address] [place] [address] Soledad Ocasio MD Insurance 03/18/2025 Travel 03/10/2025 Patient Outreach [facility] [address] [place] [phone] Soledad Ocasio MD Pre-visit Planning (SDOH screening completed on 06/17/24 ) 02/09/2025 Refill [facility] [address] [place] [phone] Soledad Ocasio MD Fibromyalgia 02/07/2025 Telephone [facility] [address] [place] [phone] Soledad Ocasio MD 02/06/2025 Refill [facility] [address] [place] [address] Fahad Agrawal MD Low back pain at multiple sites 01/21/2025 Results Follow-Up [facility] [address], [place] [phone] Soledad Ocasio MD CBC auto differential, Iron And Total Iron Binding Capacity, TSH W/Reflex to FT4, Vitamin D, 25-Hydroxy, Total, Immunoassay 01/19/2025 11:30 AM EDT Office Visit [facility] [address] [place] [address] Soledad Ocasio MD Alopecia (Primary Dx); Fibromyalgia 01/19/2025 Travel 12/22/2024 Orders Only [facility] [address] [place], [place] [phone] ProviderRamona MD from Last 3 Months Immunizations Immunization Administration Dates Next Due HPV, Quadrivalent 08/24/2008,06/21/2008 Hep B, adult 06/17/2023,,12/20/2022,12/05,01/06/1996,12/06/1995 Influenza injectable quadriv alent preservative free 01/21/2023,02/29/2020,02/05/2017 [...] Mass Index 36.07 03/18/2025 1:51 PM EST Plan of Treatment Health Maintenance Due Date Last Done Comments Family Planning (PISQ) 07/02/2002 Hepatitis A Vaccines (1 of 2 - Risk 2-dose series) 07/02/2006 HPV Vaccines (3 - 3-dose series) [...] DUPLEX COMPLETE Routine 12/21/2024 11:46 AM EDT HEMOGLOBIN A1C Routine 04/15/2024 1:41 PM [...] Vitamin D 25-OH Total 20.4(L) >30 ng/mL [facility] Comment: Health Based Reference Values*< 20 ng/mL [id number] ng/mL Insufficient> 30 ng/mL Sufficient*Henna RODRIGUEZ. N [...] ORDERABLES Final Re sult Performing Organization Address [facility] de Phone Number [facility] [address] [place] [phone] * TSH W/Reflex to FT4 (01/19/2025 1:14 PM EDT) Pathologist [facility] TSH reflex Free T4 0.87 0.32 - 4.0 uIU/mL [facility] Blood Venous blood specimen / Unknown 01/19/2025 1:14 PM EDT 01/19/2025 2:35 PM EDT Soledad Ocasio MD LAB BLOOD ORDERABLES Final Re sult Performing Organization Address [facility] de Phone Number [facility] [address] [place] [phone] * (ABNORMAL) CBC auto differential (01/19/2025 1:14 PM EDT) White Blood Count 10.8 4.8 - 10.8 X10*3/uL [facility] Red Blood Count 4.40 4.20 - 5.50 X10*6/uL [facility] Hemoglobin 11.6(L) 12.0 - 16.0 g/dl [facility] Hematocrit 36.8(L) 37.0 - 47.0 % [facility] Mean Corpuscular Volume 83.6 80.0 - 98.0 fL [facility] Mean Corpuscular Hemoglobin 26.4(L) 27.0 - 33.0 pg [facility] Mean Corpuscular HGB Conc 31.5 31.0 - 35.0 g/dl [facility] Red Cell Distribution Width 13.7 11.0 - 16.0 % [facility] Platelet Count 341 160 - 400 X10*3/uL [facility] Mean Platelet Volume 10.5 9.4 - 12.3 fL [facility] Neutrophils Percent Auto 69.7 45 - 73 % [facility] Imm Gran Pct Auto 0.5(H) 0.0 - 0.4 % [facility] Lymphocytes Percent Auto 23.5 20 - 40 % [facility] Monocytes Percent Auto 4.4 2 - 11 % [facility] Eosinophils Percent Auto 1.5 0 - 4 % [facility] Basophils Percent Auto 0.4 0 - 2 % [facility] NRBC Pct Auto 0.0 0.0 - 0.2 /100WBC [facility] Neutrophils Absolute Auto 7.6 2.0 - 8.3 x10*3/uL [facility] Imm Gran Abs Auto 0.05(H) 0.00 - 0.03 X10*3/uL [facility] Lymphocytes Absolute Auto 2.5 1.2 - 4.9 X10*3/uL [facility] Monocytes Absolute Auto 0.5 0.1 - 1.2 X10*3/uL [facility] Eosinophils Absolute Auto 0.2 0.0 - 0.4 X10*3/uL [facility] Basophils Absolute Auto 0.0 0.0 - 0.2 X10*3/uL [facility] NRBC Abs Auto 0.000 0.0 - 0.012 X10*3/uL [facility] Blood Venous blood specimen / Unknown 01/19/2025 1:14 PM EDT 01/19/2025 2:28 PM EDT us Soledad Ocasio MD LAB BLOOD ORDERABLES Final Re sult [facility] [address] [place] [address] [phone] * (ABNORMAL) Iron And Total Iron Binding Capacity (01/19/2025 1:14 PM EDT) Iron 33 30 - 160 mcg/dL [facility] Total Iron Binding Capacity 272 228 - 428 mcg/dL [facility] Percent Iron Saturation 12(L) 15 - 50 % [facility] Unsaturated Iron Binding 239 ug/dL [facility] Blood Venous blood specimen / Unknown 01/19/2025 1:14 PM EDT 01/19/2025 2:[address] [facility] Soledad Ocasio MD LAB BLOOD ORDERABLES Final Re sult [facility] [address] [place] [phone] * VASC US Abdominal pelvic Duplex Complete (12/21/2024 11:46 AM EDT) Historical Provider CV VASCULAR PROCEDURES Fi nal Result * Hemoglobin A1c (04/15/2024 1:41 PM EST) Hemoglobin A1c 5.9 <6.0 % [facility] Comment:Hemoglobin A1C Refer ence Range Adults: 4.8 - 6.0 % Non diabetic: < 6.0 % Goal: < 7.0 %Additional Action Suggested: > 8.0 %Note: Hemoglobin A1c results are invalid for patients with abnormal amounts of HbF. Blood transfusions may impact the HbA1c concentration in the patient sample. Estimated Average Glucose 123 mg/dL [facility] Comment:eAG = Estimated ave rage glucose which is %A1C expressed asaverage glucose, using the formula of the I7T-KwjwcxhOafeyip Glucose study (ADAG), Diabetes Care, Vol.31,#8,Nov. 2007 Blood Venous blood specimen / Unknown 04/15/2024 1:41 PM EST 04/15/2024 2:22 PM EST Soledad Ocasio MD LAB BLOOD ORDERABLES Final Re sult Performing Organization Address [facility] Co de Phone Number [facility] [address] [place] [address] [phone] * (ABNORMAL) Lipid Panel, Standard (04/15/2024 1:41 PM EST) Triglycerides 102 <150 mg/dL [facility] Comment:Desirable Triglyceri de: less than 150 mg/dLBorderline High Triglyceride 150-199 mg/dLHigh Triglyceride: 200-499 mg/dLVery High Triglyceride: greater than or equal to 5OO mg/dL Cholesterol 123 <200 mg/dL [facility] Comment:Desirable Cholestero l: less than 200 mg/dLBorderline High Cholesterol: 200-239 mg/dLHigh Cholesterol: greater than 239 mg/dL LDL Cholesterol Calculated 68 <100 mg/dL [facility] Comment:Desirable LDL: less than 100 mg/dLNear Optimal/Above Optimal LDL: 110- 129 mg/dLBorderline High LDL: 130-159 mg/dLHigh LDL: 160-189 mg/dLVery High LDL: greater than or equal to 190 mg/dL HDL Cholesterol 35(L) >40 mg/dL [facility] Comment:Desirable HDL: great er than 40 mg/dL Note: This HDL assay may give artificially low results in patients with liver disease. Blood Venous blood specimen / Unknown 04/15/2024 1:41 PM EST 04/15/2024 2:22 PM EST Soledad Ocasio MD LAB BLOOD ORDERABLES Final Re sult Performing Organization Address [facility]/ZIP Co de Phone Number [facility] [address] [place] [phone] * HM PAP/HPV (07/16/2023 12:00 AM EDT) Pap Smear 1. NILM 1. NILM [facility] HPV Not Detected Undetected, Indeterminat e, Quantitative , Not Detected [facility] Historical Provider HEALTH MAINTENANCE Edited Result - Final [facility] [address] [place] [address] * Hepatitis C Antibody with Reflex to HCV, RNA, Quantitative, Real-Time PCR (09/02/2022 11:51 AM EDT) Hepatitis C Antibody NON-REACT JACKIE NON-REACT JACKIE [email or web address] [place] [facility] Index 0.09 <1.00 [email or web address] [place] [facility] Comment: HCV antibody was non-reactive. There is no laboratory evidence of HCV infection. In most cases, no further action is required. However, if recent HCV exposure is suspected, a test for HCV RNA (test code 44094) is suggested. For additional information please refer to http://education.Inf[employer] Monkeys/faq/GPX38n3 (This link is being provided for informational/ educational purposes only.) Blood Venous blood specimen / Unknown 09/02/2022 11:51 AM EDT 09/02/2022 11:52 AM EDT Soledad Ocasio MD LAB BLOOD ORDERABLES Final Re sult Performing Organization Address City/[facility]/ZIP Co de Phone Number [facility] [address], [place] [address] [email or web address] [place] [facility] [address] [place] [address] * HIV-1/2 Antigen and Antibodies, Fourth Generation, with Reflexes (09/02/2022 11:51 AM EDT) HIV Antigen/Antibody, 4th Generation NON-REAC TIVE NON-REAC TIVE [email or web address] [place] [facility] Comment: HIV-1 antigen and HIV-1/HIV-2 antibodies were [...] purpose. For additional information please refer to http://education.Feesheh.[employer]/faq/PED686 (This link is being provided for informational/ educational purposes only.) The performance of this assay has not been clinically validated in patients less than 2 years old. Blood Venous blood specimen / Unknown 09/02/2022 11:51 AM EDT 09/02/2022 11:52 AM EDT us Soledad Ocasio MD LAB BLOOD ORDERABLES Final Re sult [facility] [address], [place] [address] [email or web address] [address] [place] [address] from Last 3 Months or Most Recently Relevant to Health Maintenance Insurance [employer] C3 Care Teams Screen Operator Relationship Specialty Start Date End Date Soledad Ocasio MD [address] [place] [address] PCP - General Family Medicine 08/07/22
--- OUTSIDE RECORDS SUMMARY | 2025-03-23 08:17 | XMS_ITS | Encounter Summary ---
Author Organization [employer] Address [address] [place] [address] Care Team Providers Care Die Casting Machine Setter Name Role Phone Soledad Ocasio MD Primary Care Provider [phone] Encounter Details Date Type Department Care Team (Latest Contact Info) Description 03/18/2025 Travel Social History Tobacco Use Types Packs/Day [...] documented as of this encounter Care Teams Die Casting Machine Setter Relationship Specialty Start Date End Date Soledad Ocasio MD [address] [place] [address] PCP - General Family Medicine 08/07/22 documented as of this encounter
--- OUTSIDE RECORDS SUMMARY | 2025-03-23 08:17 | XMS_ITS | Encounter Summary ---
Author Organization [employer] Address [address] [place] [address] Care Team Providers Care Powerhouse Electrician Name Role Phone Soledad Ocasio MD Primary Care Provider [phone] Nicole Ramsey PharmD Unavailable [phone] Encounter Details Date Type Department Care Team (Late st Contact Info) Description 07/07/2024 Orders Only [facility] MED[facility]INE [address] [place], [place] [phone] Sona Mccarthy MD [address] [place], [place] [phone] Social History Tobacco Use Types Packs/Day Years [...] documented as of this encounter Care Teams Powerhouse Electrician Relationship Specialty Start Date End Date Soledad Ocasio MD [address] [place] [address] PCP - General Family Medicine 08/07/22 Nicole Ramsey PharmD [address] [place] [address] Pharmacist Internal Medicine 07/07/24 11/06/24 documented as of this encounter
--- OUTSIDE RECORDS SUMMARY | 2025-03-23 08:17 | XMS_ITS | Clinical Summary ---
Author Organization [facility] Address [address] [place] [address] Phone Care Team Providers Care Building Associate Name Role Phone Barbara Cabrera MD Primary Care Provider [phone] Encounters Date Type Department Care Team Description 12/21/2024 12:45 PM EDT - 12/21/2024 11:59 PM EDT Hospital Encounter [facility] Ultrasound [address] [place] [address] Resistant hypertension Discharge Disposition: Home [...] no evidence of renal artery stenosis. Code 86294, 17801 -------- FINAL REPORT -------- Dictated By: Ruiz Gallegos Dictated Date: 12/22/2024 09:26 ET Assigned Physician: Ruiz Gallegos Reviewed and Electronically Signed By: Ruiz Gallegos Signed Date: 12/22/2024 09:29 ET Workstation ID: [id number] Transcribed By: Self Edit Transcribed Date: 12/22/2024 [...] demonstrates no evidence ofrenal artery stenosis. Code 62146, 38060 -------- FINAL REPORT -------- Dictated By: Ruiz Gallegos Dictated Date: 12/22/2024 09:26 ET Assigned Physician: Ruiz Gallegos Reviewed and Electronically Signed By: Ruiz Gallegos Signed Date: 12/22/2024 09:29 ET Workstation ID: [id number] Transcribed By: Self Edit Transcribed Date: 12/22/2024 09:26 ET us Jigar Bello MD IMG US PROCEDURES Final Result from Last 3 Months Insurance MEDICAID - [place] Care Teams Building Associate Relationship Specialty Start Date End Date Barbara Cabrera MD [address] [place] [address] PCP - General Internal Medicine 02/08/19
--- OUTSIDE RECORDS SUMMARY | 2025-03-23 08:17 | XMS_ITS | Encounter Summary ---
Author Organization [employer] Address [address] [place] [address] Care Team Providers Care Take Down Sorter Name Role Phone Soledad Ocasio MD Primary Care Provider [phone] Nicole Ramsey PharmD Unavailable [phone] Reason for Visit * Reason Onset Date Comments Nurse Triage 04/13/2024 Encounter Details Date Type Department Care Team ([facility] st Contact Info) Description 04/13/2024 Telephone [facility] MED [facility] PEDS [address] [place], [place] [phone] Soledad Ocasio MD [address] [place] [address] Nurse Triage Social History Tobacco Use Types [...] [facility]. Patient frustrated as she kept being told symptoms were related to and that it would resolve. Patient reports pain with numbness in legs has pain that shoots into alternating legs. Patient overwhelmed with 3mo infant that reports is colicky and that she [...] documented as of this encounter Care Teams Take Down Sorter Relationship Specialty Start Date End Date Soledad Ocasio MD [address] [place] [address] PCP - General Family Medicine 08/07/22 Nicole Ramsey, Janis [address] [place] [address] Pharmacist Internal Medicine 07/07/24 11/06/24 documented as of this encounter
--- OUTSIDE RECORDS SUMMARY | 2025-03-23 08:18 | XMS_ITS | Encounter Summary ---
Author Organization [employer] Address [address] [place] [address] Care Team Providers Care Business English Instructor Name Role Phone Soledad Ocasio MD Primary Care Provider [phone] Nicole Ramsey PharmD Unavailable [phone] Reason for Visit * Reason Onset Date Comments Appointment Request 10/19/2024 Encounter Details Date Type Department Care Team ([facility] Contact Info) Description 10/19/2024 Telephone [facility] MEDICINE [address] [place] [address] Soledad Ocasio MD [address] [place] [address] Appointment Request Social History Tobacco Use Types [...] requesting r/s 10/19 appointment with Nicole Ramsey. [phone] documented in this encounter Plan of Treatment Not on file documented as of this encounter Visit Diagnoses Not on filedocumented in this encounter Additional Health Concerns Assessment Noted Time PHQ-9 Depression Total Score: 0 06/17/19 25 1:39 PM EST documented as of this encounter Care Teams Business English Instructor Relationship Specialty Start Date End Date Soledad Ocasio MD [address] [place] [address] PCP - General Family Medicine 08/07/22 Nicole Ramsey PharmD [address] [place] [address] Pharmacist Internal Medicine 07/07/24 11/06/24 documented as of this encounter
--- OUTSIDE RECORDS SUMMARY | 2025-03-23 08:18 | XMS_ITS | Encounter Summary ---
Author Organization [employer] Address [address] [place] [address] Care Team Providers Care Configuration Manager Name Role Phone Soledad Ocasio MD Primary Care Provider [phone] Nicole Ramsey PharmD Unavailable [phone] Encounter Details Date Type Department Care Team ([facility] st Contact Info) Description 09/15/2023 Telephone [facility] MED [facility] PEDS [address] [place], [place] [phone] Soledad Ocasio MD [address] [place], [place] [phone] Social History Tobacco Use Types Packs/Day Years [...] PM EDT Tc to pt who stated [facility] is telling her to get Hep B titers. However, pt already had Hep B titers done on 09/09 which showed she was immune to Hep B. Pt brought these results to [facility] but they still insisted on pt getting Hep B titers. Provided pt with our office number for [facility] to call us. Pt verbalized understanding [...] documented as of this encounter Care Teams Configuration Manager Relationship Specialty Start Date End Date Soledad Ocasio MD [address] [place] [address] PCP - General Family Medicine 08/07/22 Nicole Ramsey PharmD [address] [place] [address] Pharmacist Internal Medicine 07/07/24 11/06/24 documented as of this encounter
--- OUTSIDE RECORDS SUMMARY | 2025-03-23 08:18 | XMS_ITS | Encounter Summary ---
Author Organization [employer] Address [address]t [place] [address] Care Team Providers Care Counter Clerk Name Role Phone Soledad Ocasio MD Primary Care Provider [phone] Nicole Ramsey PharmD Unavailable [phone] Reason for Visit * Reason Comments Med Refill Encounter Details Date Type Department Care Team ([facility] st Contact Info) Description 09/22/2024 Refill [facility] MED & PEDS [address] [place], [place] [phone] Fahad Agrawal MD [address] [place] [address] Low back pain at multiple sites Social [...] documented as of this encounter Care Teams Counter Clerk Relationship Specialty Start Date End Date Soledad Ocasio MD [address] [place] [address] PCP - General Family Medicine 08/07/22 Nicole Ramsey PharmD [address] [place] [address] Pharmacist Internal Medicine 07/07/24 11/06/24 documented as of this encounter
--- OUTSIDE RECORDS SUMMARY | 2025-03-23 08:18 | XMS_ITS | Clinical Summary ---
Author Organization [facility] Address [address] [phone] Phone Care Team Providers Care Account Engineer Name Role Phone Soledad Ocasio MD Primary Care Provider [phone] Allergies No known active allergies Medications * [...] crush, chew, or split. 30 tablet 11 01/19/2025 01/20/20 26 Active Active Problems Problem Noted Date Diagnosed [...] Office Visit [facility] [address] [phone] Jigar Bello MD Hypertension (Primary Dx); Obesity, [...] Office Visit [facility] [address] [phone] Jigar Bello MD [address] [phone] Health Maintenance Due Date Last Done Comments [...] Patients (6 to 49 Years) Completed 09/16/2024 Insurance Medicaid [place] Care Teams Account Engineer Relationship Specialty Start Date End Date Soledad Ocasio MD [address] [place] [id number] PCP - General Family Medicine 09/21/24
--- OUTSIDE RECORDS SUMMARY | 2025-03-23 08:18 | XMS_ITS | Encounter Summary ---
Author Organization [employer] Address [address] [place] [address] Care Team Providers Care Surgery Aid Name Role Phone Soledad Ocasio MD Primary Care Provider [phone] Nicole Ramsey PharmD Unavailable [phone] Reason for Visit * Reason Onset Date Comments Appointment Request 10/05/2024 Encounter Details Date Type Department Care Team ([facility] st Contact Info) Description 10/05/2024 Telephone [facility] MEDICINE [address] [place] [address] Soledad Ocasio MD [address] [place] [address] Appointment Request Social History Tobacco Use Types [...] scheduled for today 10/05. Please return call [phone] documented in this encounter Plan of Treatment Not on file documented as of this encounter Visit Diagnoses Not on filedocumented in this encounter Additional Health Concerns Assessment Noted Time PHQ-9 Depression Total Score: 0 06/17/19 25 1:39 PM EST documented as of this encounter Care Teams Surgery Aid Relationship Specialty Start Date End Date Soledad Ocasio MD [address] [place] [address] PCP - General Family Medicine 08/07/22 Nicole Ramsey PharmD [address] [place] [address] Pharmacist Internal Medicine 07/07/24 11/06/24 documented as of this encounter
--- OUTSIDE RECORDS SUMMARY | 2025-03-23 08:18 | XMS_ITS | Encounter Summary ---
Author Organization [employer] Address [address] [place] [address] Care Team Providers Care Paperboard Machine Operator Name Role Phone Soledad Ocasio MD Primary Care Provider [phone] Nicole Ramsey PharmD Unavailable [phone] Encounter Details Date Type Department Care Team (Late st Contact Info) Description 11/08/2022 Orders Only [facility] MED & PEDS [address] [place], [place] [phone] Gissel Holt MD [address] [place], [place] [phone] Social History Tobacco Use Types Packs/Day Years [...] documented as of this encounter Care Teams Paperboard Machine Operator Relationship Specialty Start Date End Date Soledad Ocasio MD [address] [place] [address] PCP - General Family Medicine 08/07/22 Nicole Ramsey PharmD [address] [place] [address] Pharmacist Internal Medicine 07/07/24 11/06/24 documented as of this encounter
--- OUTSIDE RECORDS SUMMARY | 2025-03-23 08:18 | XMS_ITS | Encounter Summary ---
Author Organization [email or web address] Address [address] [place] [address] Care Team Providers Care Clinic Nurse Name Role Phone Soledad Ocasio MD Primary Care Provider [phone] Reason for Visit * Reason Onset Date Comments Insurance 03/18/2025 Encounter Details Date Type Department Care Team ([facility] Contact Info) Description 03/18/2025 Telephone [facility] CH[facility] MED & PEDS [address] [place], [place] [phone] Soledad Ocasio MD [address] [place] [address] Insurance Social History Tobacco Use Types Packs/Day Years [...] encounter Miscellaneous Notes * Telephone Encounter - Fitz Pagan - 03/18/2025 1:25 PM EST Patient in for appointment no ID and no Ins Card. Patient was asked to bring it in next visit. documented in this encounter Plan of Treatment Not on file documented as of this encounter Visit Diagnoses Not on filedocumented in this encounter Additional Health Concerns Assessment Noted Time PHQ-9 Depression Total Score: 0 06/17/19 25 1:39 PM EST documented as of this encounter Care Teams Clinic Nurse Relationship Specialty Start Date End Date Soledad Ocasio MD [address] [place] [address] PCP - General Family Medicine 08/07/22 documented as of this encounter
== END 2025-03-23 10:01 | disposition home or self-care (01) ==
LOC: HO.RHES 08:07
PROVIDERS: PCP Family Medicine; Visit Provider Student in an Organized Health Care Education/Training Program
DX: M25.50 Pain in unspecified joint (principal); M79.7 Fibromyalgia; R20.0 Anesthesia of skin; R20.2 Paresthesia of skin
CPT/HCPCS: 99204

== ENCOUNTER → 2025-03-23 08:07 | Outpatient (BNVA) | payer MEDICAID, SELFPAY | PROVIDERS: PCP Family Medicine; Visit Provider Student in an Organized Health Care Education/Training Program | DX: M79.7 Fibromyalgia (principal); R20.0 Anesthesia of skin; R20.2 Paresthesia of skin; M25.561 Pain in right knee; M25.562 Pain in left knee | CPT/HCPCS: 99202 ==

== ENCOUNTER 2025-04-05 09:12 | Outpatient (AMB) | payer MEDICAID, SELFPAY ==
--- NOTE | 2025-04-05 09:19 | MHC.OFFVIS ---
Vital Signs 04/05/25 09:20 Height 4 ft 10 in Weight 176 lb 6 oz BMI 36.9 BP 120/82 Blood Pressure Location Rt brachial Position Sitting Pulse 87 Pulse Source Pulse Oximeter Pulse Oximetry (%) 100 Oxygen Delivery Method Room Air Intake Visit Reasons: INP-Possible JEFFREY Intake Note: Possible JEFFREY Senior Program Manager Required: No Accompanied by: Self / Same As Patient Allergies acetaminophen (From Percocet) Allergy (Unknown, Verified 04/05/25 09:23) Hives oxycodone (From Percocet) Allergy (Unknown, Verified 04/05/25 09:23) Hives HPI Comments Details: 39 year old female with sleep difficulties is referred to us for an evaluation of JEFFREY. She recently lost her job at [employer] in August 2024, and had a baby a year ago. She has a difficult time falling asleep and staying asleep for years, and now it is getting worse. She snores loudly, gasps for air, grinds her teeth, has a mouth guard per her dentist, and unable to tolerate it due to claustrophobia. Since childhood she wakes up with a headache daily and around noon they evolve into 10/10 debilitating migraines, she has tried various therapies, from rizatriptan to fiorect, anticonvulsants, Beta Blockers. She has HTN managed on 5 bp meds. Migraines with auras: She sees black dots in bilaterally in peripheral vision, then has pressure and photo/phono phobia, nausea, vomiting, dizziness, vertigo, loses her balance, and falls to the ground. Her last fall was 2 months ago, legs gave out and she fell walking up the stairs with the baby in her arms, she reached out for the guard rail and held on. She turns off light and lays down for 20 min. Takes fiorecet first then Rizatriptan if the headache does not abort. Pt. education provided re medication adherence, taking the Rizatriptan first thing in the morning with a glass of water and toast for headaches. Fiorecet can be taken 2 hours later if Rizatriptan is ineffective. She may repeat the Rizatriptan 4 hours after the first dose. She has acid reflux takes famotidine and manages it with diet and lifestyle. Mood is low, she has depression, feels emotionally overwhelmed with anxiety. Memory is poor, she is very forgetful. She has jumpy legs with paresthesias, and an urge to move them all night long. Sometimes the cramps are so bad, she has to get out of bed and stretch out her legs. Her legs give out in the middle of activity, shake and will have weakness in both her upper extremities and lower extremities. FH - mom , dad, denies smoking and alcohol use, seizures, and injuries. [facility] Medical History Morbid obesity with BMI of 40.0-44.9, adult Chronic pain syndrome Polyarthralgia Anemia Hypertension Migraine Family History Mother Fibromyalgia Active asthma Diabetes Carpal tunnel syndrome Back problem Maternal Aunt Breast cancer Paternal Grandmother Skin cancer Social History Alcohol intake: never Patient Tobacco Use Status: Never used Tobacco Physical Exam Vital Signs: Last Vital Signs Pulse 87 04/05/25 09:20 BP 120/82 04/05/25 09:20 Pulse Ox 100 04/05/25 09:20 Oxygen Delivery Method Room Air 04/05/25 09:20 BMI result Body Mass Index 36.9 Const General: cooperative, comfortable and no acute distress Nutritional Appearance: obese Orientation/consciousness: patient oriented x3 HEENT Face and sinus: Yes normal facial exam and Yes face symmetric Teeth and gingiva: other (mallampti score is 2) Eyes Pupils: Equal, round and reactive pupils present Neck Neck: Yes full ROM Resp Effort & Inspection: normal respiratory effort and able to speak in complete sentences Neuro General: patient oriented x3 and moves all extremities Cranial nerves: Yes Equal, round and reactive pupils present, Yes Normal accommodation reflex present, Yes Normal facial strength present, Yes Midline tongue present, Yes Ability to bilaterally rotate head present and Yes Ability to bilaterally elevate shoulders present Cognition (Neuro): normal cognition Gait exam (Neuro): Normal gait present Motor exam (neuro): 5/5 motor strength present throughout and Normal motor muscle tone present throughout Psych Appearance: well kempt Affect: Sad affect present Thought process: Normal thought process present Thought content: Normal thought content present Results Reviewed Results Reviewed: labs reviewed with pt. MR/MR knee LT wo con IMPRESSION: Unremarkable MRI of the left knee. IMPRESSION: 1. Lateral positioning of the right patella as can be associated with patellofemoral tracking syndrome. 2. [id number] bilateral effusions. Assessment & Plan Assessment & Plan (1) Excessive daytime sleepiness: Code(s): G47.19 - Other hypersomnia Category: Medical (2) Falls frequently: Comment: will send her for EMG / NCS at next f/u Code(s): R29.6 - Repeated falls Category: Medical (3) Hx of migraines: Code(s): Z86.69 - Personal history of other diseases of the nervous system and sense organs Category: Medical (4) Obesity: Code(s): E66.9 - Obesity, unspecified Category: Medical Qualifiers: Body mass index: BMI 36.0-36.9 Obesity classification: adult class 2 (BMI 35 - 39.9) Obesity type: due to excess calories Serious obesity comorbidity presence: unspecified whether serious comorbidity present Qualified Code(s): E66.812 - Obesity, class 2; E66.09 - Other obesity due to excess calories; Z68.36 - Body mass index [BMI] 36.0-36.9, adult (5) Irritable mood: Code(s): R45.4 - Irritability and anger Category: Medical Plan HST r/o jeffrey Migraines chronic Fiorcet with Rizatriptan for acute management. RLS will monitor, ferrtin is normal, b12 is normal, she has gabapentin I will do NCS /EMG studies at next f/u. Mood irritability with anxiety, and depression mangaged by her therapist with CBT-I and mediciations Aripiprazole, duloxetine, lexapro BMI elevated Weight management on Zepbound, Walk daily, as tolerated and drink plenty of water. Excessive Daytime Sleepiness Labs r/o deficiencies, low vit D levels start daily vit D 2000units. Start magnesium 200-400mg qpm for RLS symptoms of cramps. F/U in 3 months Orders: Orders RT home sleep study Today G47.19 - Other hypersomnia Medications: New cholecalciferol (vitamin D3) 50 mcg PO DAILY 90 caps 0RF 3 months magnesium 200 mg PO DAILY 90 tabs 3RF 3 months Patient Instructions: Please complete the following fasting labs to rule out deficiencies. CBC/CMP/ B12/ Vit D/ TSH/ Homocysteine and MMA/ Ferritin. Sleep Hygiene provided: set a scheduled bedtime and wake time to help regulate the circadian rhythm and balance the release of pituitary hormones. Sleep in a dark room, temperatures below 68 degrees, and no devices n bed. Limit caffeinated products 6 hours prior to bed, and limit fluids 2-4 hours prior to bed. Gentle night yoga, diffusing essential oils, and playing soft music can be relaxing. Monitor frequency, severity and timing of migraines, use migraine mehdi penny, or journal. Monitor falls. Monitor BP. Self care is emphasized, increase socialization with friends and family to improve mood, join a volunteer group, with regards to identifying triggers, hunger, thirst, sounds, smells. Coding Level of Care Code New Pt Level 4 (50936) Diagnoses Excessive daytime sleepiness G47.19 Falls frequently R29.6 Hx of migraines Z86.69 Class 2 obesity due to excess calories with body mass index (BMI) of 36.0 to 36.9 in adult, unspecified whether serious comorbidity present E66.812; E66.09; Z68.36 Body mass index: BMI 36.0-36.9 Obesity classification: adult class 2 (BMI 35 - 39.9) Obesity type: due to excess calories Serious obesity comorbidity presence: unspecified whether serious comorbidity present Irritable mood R45.4 Time Spent (min) 40 Sleep Questionnaire Difficulty falling asleep: Yes Difficulty staying asleep?: Yes Snoring: Yes Witnessed apneas: No Gasping arousals: Yes Nocturia: No GERD: Yes Vivid dreams: No Acting out dreams: No Abnormal behavior in sleep: No Abnormal movements in sleep: No Morning headaches: Yes Excessive daytime sleepiness: Yes Daytime naps: No Restless legs: No Hallucinations: No Sleep paralysis: No Drop attacks: No Sleep Study: No CPAP: No
[2025-04-05 09:20] VITALS: BP 120/82; PULSE 87; O2SAT 100; BMI 36.9
== END 2025-04-05 10:08 | disposition home or self-care (01) ==
PROVIDERS: PCP Family Medicine; Visit Provider Physician Assistant Medical
DX: G47.19 Other hypersomnia (principal); R29.6 Repeated falls; Z86.69 Personal history of other diseases of the nervous system and sense organs; E66.812 Obesity, class 2; E66.09 Other obesity due to excess calories; Z68.36 Body mass index [BMI] 36.0-36.9, adult; R45.4 Irritability and anger
CPT/HCPCS: 99204

== ENCOUNTER → 2025-04-05 09:12 | Outpatient (BNVA) | payer MEDICAID, SELFPAY | PROVIDERS: PCP Family Medicine; Visit Provider Physician Assistant Medical | DX: G47.19 Other hypersomnia (principal); G43.709 Chronic migraine without aura, not intractable, without status migrainosus; R45.4 Irritability and anger; R29.6 Repeated falls; G25.81 Restless legs syndrome; F32.A Depression, unspecified; F41.9 Anxiety disorder, unspecified; E66.812 Obesity, class 2; Z68.36 Body mass index [BMI] 36.0-36.9, adult; Z71.89 Other specified counseling; Z79.899 Other long term (current) drug therapy | CPT/HCPCS: 99212 ==